=== PATIENT | male | born 1960 | race Caucasian/White ===

== ENCOUNTER → 2020-06-03 | Outpatient (CLI) | payer BC | LOC: CARD 13:00 | PROVIDERS: ATTEND Nurse Practitioner Family | DX: I51.7 Cardiomegaly (principal) | CPT/HCPCS: 93225; 93226; 93306 ==

== ENCOUNTER → 2020-06-29 | Outpatient (CLI) | payer BC ==
[~2020-06-29] VITALS: Ht 187 cm; Wt 126.0 kg
[~2020-06-29] MED LIST: REGADENOSON 0.4 MG/5 ML SYR (LEXISCAN) IV ONE
[2020-06-29] MEDS: CATHETER FLUSH 10 ML SYR IV PRN ×2 (07:26→09:08)
[2020-06-29 09:06] VITALS: BP 138/76
--- NOTE | 2020-06-30 12:56 | STRESS TEST ---
DATE OF SERVICE: 06/29/2020 RESTING AND POST REGADENOSON TECHNETIUM-99M TETROFOSMIN SPECT CT IMAGING ORDERING PHYSICIAN: Dana Snell APRN PRIMARY PHYSICIAN: Vickie Victoria APRN CLINICAL DIAGNOSES: Abnormal electrocardiogram. Baseline images were carried out after injection of 10.23 mCi of technetium-99m Tetrofosmin. This was followed by 0.4 mg regadenoson and 29.6 mCi of technetium-99m Tetrofosmin for stress imaging. The electrocardiogram showed sinus rhythm at baseline. It did not change significantly with regadenoson infusion. Review of images at rest and following stress does not indicate any significant perfusion defects consistent with myocardial ischemia or infarction. Gated images show normal global left ventricular systolic function. Left ventricular end diastolic volume is 112 mL. TID is absent (1.03). Left ventricular ejection fraction is calculated to be 50%. CONCLUSIONS: 1. No evidence of significant myocardial ischemia or infarction on this study. 2. Well preserved global left ventricular systolic function with ejection fraction of 50%. 3. No regional wall motion abnormality. Job ID: [id number] DocumentID: [id number] Dictated Date: 06/30/2020 08:39:32 [place] Date: 06/30/2020 12:54:47 Dictated By: VANESA MOJICA MD, MA, FACP, FACC,
== END ==
LOC: CARD 07:45
PROVIDERS: ATTEND Nurse Practitioner Family
DX: R94.31 Abnormal electrocardiogram [ECG] [EKG] (principal)
CPT/HCPCS: 78452; 93017; A9502

== ENCOUNTER 2021-04-24 10:05 | Inpatient (IN) | payer BC ==
[~2021-04-24] VITALS: Ht 187.9 cm; Wt 131.5 kg
[2021-04-24] MEDS ORDERED: 1/2 NS IV SOLUTION 1,000 ML IV SCH (12:00)
--- NOTE | 2021-04-24 12:01 | History & Physical-Hospitalist ---
History of Present Illness HPI/Chief Complaint This is a 60-year-old white male who has a history of hypertension hyperlipidemia and type 2 diabetes. He had a recent Covid infection in March I believe the of this year. He was beginning to recover until the last 24 h when he is noticed increased fatigue and racing heart. He presented to the emergency room in [place] and was found to be in SVT with a rate of 240. Adenosine and Cardizem IV were not helpful. As such his he was cardioverted with 100 J. At the time of my interview here he is in sinus rhythm but has intermittent runs short runs of SVT and probable atrial fibrillation. He appears to be fatigued but denies having any chest pain. In addition there is a verbal report although I do not have access to the chest x-ray report but he does have a lung mass of some sort. Source: patient Exam Limitations: no limitations Date Seen 04/24/21 Time Seen by a Provider: 12:00 Attending Physician Kate Hunter MD [facility]CP [facility] Referring Physician Date of Admission Apr 24, 2021 at 11:30 Home Medications & Allergies Home Medications Reviewed patient Home Medication Reconciliation performed by pharmacy medication reconciliations orthotics prosthetics technician and/or nursing. Patients Allergies have been reviewed. Allergies Allergies Coded Allergies No Known Drug Allergies (Unverified06/29/20) Past Xavnaly-Zzfkoo-Syewcq Hx Patient Social History Marrital Status: Employed/Student: employed (Aircraft Captain) Smoking Status: Never a Smoker Substance use?: No Alcohol Use?: No Past Medical History Surgeries: Nose High Cholesterol, Hypertension Diabetes, Insulin dep Family Medical History No Pertinent Family Hx Review of Systems Constitutional: see HPI, weight loss (10 pounds with recent Covid infection) EENTM: no symptoms reported Respiratory: short of breath Cardiovascular: palpitations Gastrointestinal: no symptoms reported Genitourinary: no symptoms reported Musculoskeletal: no symptoms reported Skin: no symptoms reported Psychiatric/Neurological: No Symptoms Reported Physical Exam Physical Exam Vital Signs Vital Signs - First Documented 04/24/21 04/24/21 04/24/21 11:30 11:41 12:49 Temp 36.9 Pulse 103 Resp 16 B/P (MAP) 124/82 Pulse Ox 96 O2 Delivery Nasal Cannula O2 Flow Rate 2.00 FiO2 28 Capillary Refill : Height, Weight, BMI Height: '" Weight: lbs. oz. kg; 36.03 BMI Method: General Appearance: No Apparent Distress, Obese, Other (Plethoric) HEENT: Normal ENT Inspection Neck: Limited Range of Motion Respiratory: Chest Non Tender, Lungs Clear, Normal Breath Sounds, No Accessory Muscle Use, No Respiratory Distress Cardiovascular: Regular Rate, Rhythm, No Edema, No Gallop, No JVD, No Murmur Gastrointestinal: Normal Bowel Sounds, No Organomegaly, No Pulsatile Mass, Non Tender Extremity: Normal Capillary Refill, Non Tender, No Pedal Edema Neurologic/Psychiatric: Alert, Oriented x3, No Motor/Sensory Deficits, Other (Seems lethargic and slow to express himself) Skin: Normal Color, Warm/Dry Results Results/Procedures Labs Laboratory Tests 04/24/21 12:20 04/24/21 16:46 04/24/21 18:06 Patient resulted labs reviewed. Assessment/Plan Admission Diagnosis SVT-status post cardioversion Possible paroxysmal atrial fibrillation Diabetes on insulin [id number] secondary to recent noncompliance for the last month-now with DKA Recent Covid infection Hypertension Hyperlipidemia Possible lung mass vs consolidated pneumonia-s/p Covid -CT chest on my examination appears to be bilateral consolidations c/w pneumonia- so will begin iv antibiotics after blood and sputum cultures. Renal Insuficiency with proteinuria- Admission Status: Inpatient Order (span 2 midnights) Reason for Inpatient Admission: multiple comordities - transferring to ICU Copy Copies To 1: [facility]/KATE BATES MD Apr 24, 2021 12:01
[2021-04-24] MEDS ORDERED: inSUlin ASPART (NovoLOG) 1 UNIT/0.01 ML (CHARGE PER UNIT) ONE (12:17)
[2021-04-24 12:30] LABS: BASOPHILS % (AUTO) 0 % (0-10); EOSINOPHILS % (AUTO) 0 % (0-10); HEMATOCRIT 44 % (40-54); HEMOGLOBIN 14.2 g/dL (13.3-17.7); LYMPHOCYTES # (AUTO) 0.3 10^3/uL (1.0-4.0); LYMPHOCYTES % (AUTO) 3 % (12-44); MEAN CORPUSCULAR HEMOGLOBIN 28 pg (25-34); MEAN CORPUSCULAR HGB CONC 33 g/dL (32-36); MEAN CORPUSCULAR VOLUME 85 fL (80-99); MEAN PLATELET VOLUME 10.4 fL (9.0-12.2); MONOCYTES # (AUTO) 1.2 10^3/uL (0.0-1.0); MONOCYTES % (AUTO) 11 % (0-12); NEUTROPHILS # (AUTO) 9.4 10^3/uL (1.8-7.8); NEUTROPHILS % (AUTO) 84 % (42-75); PLATELET COUNT 180 10^3/uL (130-400); WHITE BLOOD COUNT 11.2 10^3/uL (4.3-11.0)
[2021-04-24 12:41] LABS: ALBUMIN 3.3 GM/DL (3.2-4.5); CHLORIDE 86 MMOL/L (98-107); POTASSIUM 4.7 MMOL/L (3.6-5.0)
--- NOTE | 2021-04-24 12:41 | Consultation-Cardiology ---
HPI-Cardiology Cardiology Consultation: Date of Consultation 04/24/2021 Date of Admission 04/24/2021 Attending Physician Kate Hunter MD Admitting Physician [facility]athy [facility] Consulting Physician BALTA CHRISTIE JR, MD HPI: Time Seen by a Provider: 12:38 Chief Complaint: Reason for consultation: Supraventricular tachycardia. I had the pleasure of seeing Dajuan on the cardiac stepdown unit at [facility] in [place], [place] this afternoon. He has no known history of coronary artery disease. From his description, couple of years ago someone noticed trenton ething on an electrocardiogram and he had been sent over to our hospital for cardiology evaluation. At that time he underwent an echocardiogram, stress test and Holter monitor. There were no significant abnormalities and the patient was not scheduled for any follow-up. He had COVID infection a few weeks ago. He was treated at home. He has had some intermittent fatigue and shortness of breath since then. Then a few days ago he developed nausea, vomiting and diarrhea. He saw his primary care provider and was diagnosed with viral gastroenteritis and given some medication for nausea. His nausea and vomiting improved. However, then he developed profound fatigue but at the same time also had insomnia. He felt like he needed to sleep but could not fall asleep. This was causing him to become more fatigued and weak. Then early this morning the patient developed palpitations with the sensation of a rapid heartbeat. He checked his pulse with a pulse oximeter and got a reading in the 200 range. He then went to his local emergency room. He was found to be in supraventricular tachycardia. He was treated with 2 doses of adenosine which broke the arrhythmia and then he was in sinus tachycardia around 120 bpm. At that time, I was called about arranging for transfer to our facility. He still does have some palpitations but these are improved. When he had the very fast heartbeats this morning, he was lightheaded but denies syncope. He denies chest discomfort. His shortness of breath may have been slightly worse when he had the rapid heartbeats this morning. He denies paroxysmal nocturnal dyspnea, orthopnea, or lower extremity edema. He did have a cough around the time of his Covid infection but this seems to have resolved. Because of the tachycardia, a cardiology consultation was requested. Certain portions of this document may have been dictated utilizing voice recognition technology. Inherent to this technology, typographical and grammatical errors may exist. As much as I am diligent to identify and correct these mistakes, some errors may remain in the document. Review of Systems-Cardiology Review of Systems Other comments Review of 10 organ systems is as per the history of present illness, otherwise negative. LRK-Xveilk-Yeonef Hx Patient Social History Marrital Status: Employed/Student: employed (Solar Panel Technician) Smoking Status: Never a Smoker Have you traveled recently?: Yes Where was recent travel?: [place] Alcohol Use?: No Pt feels they are or have been: No Past Medical History PMH As described under Assessment. Family Medical History Family Medical History: The patient did not report a family history of premature coronary artery disease in first-degree relatives. Allergies and Home Medications Allergies Coded Allergies: No Known Drug Allergies (Unverified , 06/29/20) Patient Home Medication List Home Medication List Reviewed: Yes Exam Vital Signs Vital Signs Date Time Temp Pulse Resp B/P (MAP) Pulse Ox O2 Delivery O2 Flow Rate FiO2 04/24/21 15:00 37.2 04/24/21 13:00 106 04/24/21 12:49 96 28 04/24/21 12:49 Nasal Cannula 2.00 04/24/21 12:45 17 114/36 Physical Exam General: Alert. No acute distress. Well nourished and appears stated age. He is obese. Eye: Extraocular movements are intact. Conjunctivae are clear. There are no xanthelasma. HENT: Normocephalic. Atraumatic. Carotid pulsations 2/2 without bruits. Neck: Jugular venous pressure does not appear elevated. No thyromegaly appreciated. Respiratory: Lungs are clear to auscultation. Respirations are non-labored. Breath sounds are equal. Symmetrical chest wall expansion. Cardiovascular: Tachycardia. Regular rhythm. No murmur. No gallop. Point of maximal impulse is not appear displaced. Good pulses equal in all extremities. No edema. Gastrointestinal: Soft. Normal bowel sounds. Skin: Skin turgor is normal. There is no pallor. Musculoskeletal: No kyphosis or scoliosis appreciated. Neurologic: Alert and oriented to person, place, time. Cranial nerves 3-12 appear grossly intact. The patient has good motor tone strength in the upper and lower extremities bilaterally. Psychiatric: Cooperative. Appropriate mood & affect. Labs Laboratory Tests Test 2/13/22 12:10 04/24/21 12:20 04/24/21 14:30 04/24/21 14:34 Range/Units Glucometer 303 H 70-110 MG/DL White Blood Count 11.2 H 4.3-11.0 10^3/uL Red Blood Count 5.10 4.30-5.52 10^6/uL Hemoglobin 14.2 13.3-17.7 g/dL Hematocrit 44 40-54 % Mean Corpuscular Volume 85 80-99 fL Mean Corpuscular Hemoglobin 28 25-34 pg Mean Corpuscular Hemoglobin Concent 33 32-36 g/dL Red Cell Distribution Width 14.5 10.0-14.5 % Platelet Count 180 130-400 10^3/uL Mean Platelet Volume 10.4 9.0-12.2 fL Immature Granulocyte % (Auto) 1 % Neutrophils (%) (Auto) 84 H 42-75 % Lymphocytes (%) (Auto) 3 L 12-44 % Monocytes (%) (Auto) 11 0-12 % Eosinophils (%) (Auto) 0 0-10 % Basophils (%) (Auto) 0 0-10 % Neutrophils # (Auto) 9.4 H 1.8-7.8 10^3/uL Lymphocytes # (Auto) 0.3 L 1.0-4.0 10^3/uL Monocytes # (Auto) 1.2 H 0.0-1.0 10^3/uL Eosinophils # (Auto) 0.0 0.0-0.3 10^3/uL Basophils # (Auto) 0.0 0.0-0.1 10^3/uL Immature Granulocyte # (Auto) 0.1 0.0-0.1 10^3/uL Neutrophils % (Manual) 79 % Lymphocytes % (Manual) 4 % Monocytes % (Manual) 10 % Band Neutrophils 7 % [place] Cells SLIGHT Sodium Level 125 *L 135-145 MMOL/L Potassium Level 4.7 3.6-5.0 MMOL/L Chloride Level 86 L 98-107 MMOL/L Carbon Dioxide Level 10 L 21-32 MMOL/L Anion Gap 29 H 5-14 MMOL/L Blood Urea Nitrogen 44 H 7-18 MG/DL Creatinine 2.01 H 0.60-1.30 MG/DL Estimat Glomerular Filtration Rate 38 BUN/Creatinine Ratio 22 Glucose Level 339 H 70-105 MG/DL Calcium Level 9.4 8.5-10.1 MG/DL Corrected Calcium 10.0 8.5-10.1 MG/DL Total Bilirubin 0.3 0.1-1.0 MG/DL Aspartate Amino Transf (AST/SGOT) 36 H 5-34 U/L Alanine Aminotransferase (ALT/SGPT) 24 0-55 U/L Alkaline Phosphatase 105 40-136 U/L Troponin I < 0.028 < 0.028 <0.028 NG/ML C-Reactive Protein High Sensitivity 48.62 H 0.00-0.50 MG/DL Total Protein 7.4 6.4-8.2 GM/DL Albumin 3.3 3.2-4.5 GM/DL Beta-Hydroxybutyrate (Chem panel) 10.07 H 0.00-0.27 MMOL/L Thyroid Stimulating Hormone (TSH) 1.16 0.35-4.94 UIU/ML Blood Gas Puncture Site RIGHT RADIAL Blood Gas Patient Temperature 37.1 Arterial Blood pH 7.35 L 7.37-7.43 Arterial Blood Partial Pressure CO2 29 L 35-45 MMHG Arterial Blood Partial Pressure O2 58 L 79-93 MMHG Arterial Blood HCO3 16 *L 23-27 MMOL/L Arterial Blood Total CO2 16.7 L 21.0-31.0 MMOL/L Arterial Blood Oxygen Saturation 91 L 94-100 % Arterial Blood Base Excess -8.6 L -2.5-2.5 MMOL/L Stanley Test YES-POS Blood Gas Ventilator Setting NO Blood Gas Inspired Oxygen 2 ECG Impression ECG Comment Sinus tachycardia at a heart rate of 104 bpm with left atrial abnormality. Diagnosis/Problems Diagnosis/Problems (1) Supraventricular tachycardia Assessment & Plan: He seems to be having a combination supraventricular tachycardia of unclear mechanism in addition to paroxysmal atrial fibrillation. I have started him on beta-vishal but within 1 hour, he developed recurrent tachycardia and I have started him on intravenous diltiazem infusion. I will plan on an echocardiogram tomorrow. (2) Paroxysmal atrial fibrillation Assessment & Plan: In addition to supraventricular tachycardia, he also seems to be having some paroxysmal atrial fibrillation. As above, I have started him on intravenous diltiazem infusion. If he remains in atrial fibrillation in the morning, then I will consider initiating oral anticoagulation at that time. As long as oral anticoagulation is initiated within 48 hours of the start of the atrial fibrillation, this would be soon enough to prevent atrial thrombus. (3) Primary hypertension Assessment & Plan: He was taking lisinopril at home. He does not know the dose. He was not even sure why he was taking lisinopril. We will be initiating treatment for the supraventricular arrhythmias with beta-vishal and diltiazem as above. (4) Acute kidney injury Assessment & Plan: His current GFR is consistent with stage III chronic kidney disease. I do not have any old results for comparison. This will need to be followed closely. The primary attending has ordered intravenous fluids. (5) Type 2 diabetes mellitus with complication Assessment & Plan: This will be managed by the hospitalist. (6) Mass of upper lobe of right lung Assessment & Plan: Exact etiology unclear. CT of the chest is pending. (7) Hyponatremia Assessment & Plan: Exact etiology unclear. This is concerning for SIADH in light of the right upper lobe mass. (8) Obesity Assessment & Plan: He needs to work on weight loss. (9) Personal history of COVID-19 Assessment & Plan: Unclear whether or not this could have anything to do with his current clinical status. Problem Qualifiers (1) Obesity: Body mass index: BMI 35.0-35.9 BALTA CRHISTIE JR, MD Apr 24, 2021 12:41
[2021-04-24 12:42] LABS: CALCIUM 9.4 MG/DL (8.5-10.1)
--- NOTE | 2021-04-24 12:42 | Diagnostic Imaging Report ---
CLINICAL INDICATION: Patient with cough and shortness of air post COVID. EXAM: Portable chest x-ray, upright view. COMPARISON: None. FINDINGS: Lungs/pleura: There is a moderate-sized area of consolidation involving the right upper lobe and right mid lung field. There is subtle amorphous airspace infiltrate involving the left mid lung field and left perihilar region. There is no pneumothorax. There is no pleural effusion. Mediastinum: Mild pulmonary vascular prominence centrally. Pulmonary vasculature: Unremarkable. Heart: There is cardiomegaly. Bones/extrathoracic soft tissue: There are degenerative spurs involving the spine. IMPRESSION: 1: There is consolidation in the right upper lobe and right mid lung field and amorphous infiltrate involving the left perihilar region concerning for lung infiltrates. 2: There is mild cardiomegaly with mild pulmonary vascular prominence centrally. Dictated by: Dictated on workstation # [id number]
[2021-04-24 12:43] LABS: GLUCOSE 339 MG/DL (70-105); TOTAL PROTEIN 7.4 GM/DL (6.4-8.2)
[2021-04-24 12:45] LABS: BILIRUBIN,TOTAL 0.3 MG/DL (0.1-1.0); CARBON DIOXIDE 10 MMOL/L (21-32)
[2021-04-24 12:46] LABS: SODIUM 125 MMOL/L (135-145)
[2021-04-24 12:47] LABS: ALKALINE PHOSPHATASE 105 U/L (40-136); CREATININE SERUM 2.01 MG/DL (0.60-1.30); GFR ESTIMATED 38
[2021-04-24 12:48] LABS: BUN/CREATININE RATIO 22
[2021-04-24 12:49] VITALS: BP 124/82
[2021-04-24 12:50] LABS: ALANINE AMINOTRANSFERASE 24 U/L (0-55)
[2021-04-24] MEDS ORDERED: meTOproloL SUCCINATE 50 MG (TOPROL XL) TAB PO NR (13:00)
[2021-04-24 13:09] LABS: BAND NEUTROPHILS 7 %; BURR CELLS SLIGHT; LYMPHOCYTES % (MANUAL) 4 %; MONOCYTES % (MANUAL) 10 %; NEUTROPHILS % (MANUAL) 79 %
[2021-04-24] MEDS ORDERED: dilTIAZem DRIP PRE-MIX 125 ML IV ONE (14:20)
[2021-04-24] MEDS: NS IV 1000 ML 1,000 ML IV SCH ×3 (14:36→22:23)
[2021-04-24] MEDS: dilTIAZem DRIP PRE-MIX 125 ML IV SCH (14:36)
[2021-04-24 14:47] LABS: ABG BASE EXCESS -8.6 MMOL/L (-2.5-2.5); ABG OXYGEN SATURATION 91 % (94-100); ABG PCO2 29 MMHG (35-45); ABG PH 7.35 (7.37-7.43); ABG PO2 58 MMHG (79-93); ABG TCO2 16.7 MMOL/L (21.0-31.0)
[2021-04-24 14:50] LABS: ALLENS TEST YES-POS; INSPIRED O2 2; PATIENT TEMP 37.1; VENTILATOR NO
[2021-04-24] MEDS ORDERED: RT-ALBUTEROL SULF 2.5 MG/3 ML PRE-MIX VIAL INH PRN (15:00)
[2021-04-24] MEDS ORDERED: inSUlin ASPART (NovoLOG) 1 UNIT/0.01 ML (CHARGE PER UNIT) SC SCH ×2 (15:00→18:00)
[2021-04-24] MEDS ORDERED: ENOXAPARIN 40 MG/0.4 ML (LOVENOX) SYR SC SCH (15:15)
[2021-04-24] MEDS: PIPERACILLIN SODIUM/TAZOBACTAM 4.5 GM in NS (IVPB) 100 ML IV NR ×2 (15:40→15:45)
[2021-04-24 15:43] LABS: CLARITY,URINE CLEAR; COLOR,URINE YELLOW; GLUCOSE, URINE (UA) 3+ (NEGATIVE); KETONES,URINE 3+ (NEGATIVE); LEUKOCYTE ESTERASE ,URINE NEGATIVE (NEGATIVE); NITRITE,URINE NEGATIVE (NEGATIVE); PH,URINE 5.5 (5-9); PROTEIN,URINE 2+ (NEGATIVE)
[2021-04-24] MEDS ORDERED: ONDANSETRON 4 MG/2 ML (SDV) Z0FRAN IVP PRN (15:45)
[2021-04-24] MEDS ORDERED: NS IV 1000 ML 1,000 ML IV SCH (15:45)
[2021-04-24 15:54] LABS: BACTERIA,URINE TRACE /HPF; BILIRUBIN,URINE 2+ (NEGATIVE); HYALINE CASTS, URINE 0-2 /LPF
[2021-04-24] MEDS ORDERED: PIPERACILLIN SODIUM/TAZOBACTAM 4.5 GM in NS (IVPB) 100 ML IV NR (16:00)
[2021-04-24] MEDS: POTASSIUM CL 10MEQ/50ML IVPB 50 ML IV SCH ×6 (16:08→23:56)
--- NOTE | 2021-04-24 16:15 | Tele-ICU Consult ---
Progress Note 60 y/o male with a hx of HTN, DM and recent covid PNA Presents with palpitations and weakness Noted to be in A fib/RVR Cardiology consulted for cardioversion. Started on cardizem drip Blood sugar 339 with elevated hydroxbutyrate and HCO3 of 16 suggesting DKA also has ELMA with creatinine of 2 PLAN: cardiology on consult for a fib/rvr, cardizem drip started Insulin drip for DKA Hydration for ELMA Focused Exam Height, Weight, BMI Height: '" Weight: lbs. oz. kg; 35.26 BMI Method: Labs Laboratory Tests 04/24/21 12:20 Labs Labs Laboratory Tests 04/24/21 12:10: Glucometer 303H 04/24/21 12:20: White Blood Count 11.2H, Red Blood Count 5.10, Hemoglobin 14.2, Hematocrit 44, Mean Corpuscular Volume 85, Mean Corpuscular Hemoglobin 28, Mean Corpuscular Hemoglobin Concent 33, Red Cell Distribution Width 14.5, Platelet Count 180, Mean Platelet Volume 10.4, Immature Granulocyte % (Auto) 1, Neutrophils (%) (Auto) 84H, Lymphocytes (%) (Auto) 3L, Monocytes (%) (Auto) 11, Eosinophils (%) (Auto) 0, Basophils (%) (Auto) 0, Neutrophils # (Auto) 9.4H, Lymphocytes # (Auto) 0.3L, Monocytes # (Auto) 1.2H, Eosinophils # (Auto) 0.0, Basophils # (Auto) 0.0, Immature Granulocyte # (Auto) 0.1, Neutrophils % (Manual) 79, Lymphocytes % (Manual) 4, Monocytes % (Manual) 10, Band Neutrophils 7, [place] Cells SLIGHT, Sodium Level 125*L, Potassium Level 4.7, Chloride Level 86L, Carbon Dioxide Level 10L, Anion Gap 29H, Blood Urea Nitrogen 44H, Creatinine 2.01H, Estimat Glomerular Filtration Rate 38, BUN/Creatinine Ratio 22, Glucose Level 339H, Calcium Level 9.4, Corrected Calcium 10.0, Total Bilirubin 0.3, Aspartate Amino Transf (AST/SGOT) 36H, Alanine Aminotransferase (ALT/SGPT) 24, Alkaline Phosphatase 105, Troponin I < 0.028, C-Reactive Protein High Sensitivity 48.62H, Total Protein 7.4, Albumin 3.3, Beta-Hydroxybutyrate (Chem panel) 10.07H, Thyroid Stimulating Hormone (TSH) 1.16 04/24/21 14:30: Blood Gas Puncture Site RIGHT RADIAL, Blood Gas Patient Temperature 37.1, Arterial Blood pH 7.35L, Arterial Blood Partial Pressure CO2 29L, Arterial Blood Partial Pressure O2 58L, Arterial Blood HCO3 16*L, Arterial Blood Total CO2 16.7L, Arterial Blood Oxygen Saturation 91L, Arterial Blood Base Excess -8.6L, Stanley Test YES-POS, Blood Gas Ventilator Setting NO, Blood Gas Inspired Oxygen 2 04/24/21 14:34: Troponin I < 0.028 04/24/21 15:27: Urine Color YELLOW, Urine Clarity CLEAR, Urine pH 5.5, Urine Specific [place] 1.025H, Urine Protein 2+H, Urine Glucose (UA) 3+H, Urine Ketones 3+H, Urine Nitrite NEGATIVE, Urine Bilirubin 2+H, Urine Urobilinogen 0.2, Urine Leukocyte Esterase NEGATIVE, Urine RBC (Auto) TRACE-IH, Urine RBC NONE, Urine WBC 5-10H, Urine Squamous Epithelial Cells NONE, Urine Crystals NONE, Urine Bacteria TRACE, Urine Casts PRESENT, Urine Hyaline Casts 0-2H, Urine Mucus NEGATIVE, Urine Culture Indicated YES 04/24/21 16:07: Glucometer 351H BENNY CARLSON MD Apr 24, 2021 16:15
[2021-04-24] MEDS: 1/2 NS IV SOLUTION 1,000 ML IV SCH ×2 (16:39→20:59)
[2021-04-24] MEDS: D5 1/2 NS 1000 ML IV SOLUTION 1,000 ML IV SCH (16:41)
[2021-04-24] MEDS: inSUlin REGULAR HUMAN VIAL 250 UNITS in NORMAL SALINE 250 ML IV SCH (16:51)
[2021-04-24] MEDS ORDERED: AMIODARONE FOR BOLUS 150 MG in NS (IVPB) 100 ML IV NR (17:00)
[2021-04-24 17:18] LABS: CALCIUM 8.7 MG/DL (8.5-10.1)
[2021-04-24 17:23] LABS: CREATININE SERUM 1.85 MG/DL (0.60-1.30)
[2021-04-24] MEDS: AMIODARONE INJECTION 450 MG in D5W IV SOLUTION (EXCEL) 250 ML IV SCH (17:37)
--- NOTE | 2021-04-24 17:45 | Diagnostic Imaging Report ---
CLINICAL INDICATIONS: Follow-up chest x-ray to look for infiltrate versus mass. EXAM: Axial CT scan of the chest performed without IV contrast. Sagittal and coronal reformatted images were created. COMPARISON: Chest x-ray dated 04/24/2021. FINDINGS: Again noted moderate amount of dense consolidation involving right upper lobe and right perihilar region. There is also significant lung consolidation involving the left lower lobe posteriorly. There is mild patchy consolidation and groundglass opacification involving the more midportion of the left lower lobe. There are some air bronchograms seen in these areas of consolidation. There is no pleural effusion. There are multiple prominent lymph nodes in the mediastinum. There is no axillary lymphadenopathy. There is no other significant mediastinal abnormality. Visualized upper lung tan show no significant abnormality. There are degenerative spurs involving the thoracic spine. IMPRESSION: 1: There are areas of dense consolidation with air bronchograms involving the right upper lobe and left lower lobe region. These findings may be related to bronchopneumonia. Follow-up chest CT scan in one month is suggested to evaluate for resolution of these findings. 2: There is mediastinal lymphadenopathy. Dictated by: Dictated on workstation # [id number]
[2021-04-24 18:24] LABS: POTASSIUM 4.2 MMOL/L (3.6-5.0)
[2021-04-24 18:25] LABS: CALCIUM 8.7 MG/DL (8.5-10.1)
[2021-04-24 18:30] LABS: CREATININE SERUM 1.81 MG/DL (0.60-1.30)
[2021-04-24] MEDS ORDERED: ACETAMINOPHEN 325 MG TABLET PO PRN (19:15)
[2021-04-24] MEDS ORDERED: MELATONIN 3 MG TABLET PO PRN (19:15)
[2021-04-24] MEDS ORDERED: ACETAMINOPHEN 325 MG TABLET ONE (20:12)
[2021-04-24] MEDS: RT-ALBUTEROL SULF 2.5 MG/3 ML PRE-MIX VIAL INH SCH (20:51)
[2021-04-24] MEDS: PIPERACILLIN SODIUM/TAZOBACTAM 4.5 GM in NS (IVPB) 100 ML IV SCH (22:23)
[2021-04-25] MEDS: 1/2 NS IV SOLUTION 1,000 ML IV SCH ×6 (00:03→18:35)
[2021-04-25] MEDS: dilTIAZem DRIP PRE-MIX 125 ML IV SCH (00:12)
[2021-04-25 00:27] LABS: POTASSIUM 3.8 MMOL/L (3.6-5.0)
[2021-04-25 00:28] LABS: CALCIUM 8.3 MG/DL (8.5-10.1)
[2021-04-25 00:32] LABS: CREATININE SERUM 1.79 MG/DL (0.60-1.30)
[2021-04-25] MEDS: AMIODARONE INJECTION 450 MG in D5W IV SOLUTION (EXCEL) 250 ML IV SCH (01:55)
[2021-04-25] MEDS: NS IV 1000 ML 1,000 ML IV SCH ×5 (02:43→18:34)
[2021-04-25] MEDS: POTASSIUM CL 10MEQ/50ML IVPB 50 ML IV SCH ×6 (04:12→18:34)
[2021-04-25] MEDS: D5 1/2 NS 1000 ML IV SOLUTION 1,000 ML IV SCH ×4 (04:12→18:34)
[2021-04-25 04:32] LABS: BASOPHILS # (AUTO) 0.1 10^3/uL (0.0-0.1); BASOPHILS % (AUTO) 1 % (0-10); EOSINOPHILS % (AUTO) 0 % (0-10); HEMATOCRIT 35 % (40-54); HEMOGLOBIN 11.8 g/dL (13.3-17.7); LYMPHOCYTES # (AUTO) 0.5 10^3/uL (1.0-4.0); LYMPHOCYTES % (AUTO) 5 % (12-44); MEAN CORPUSCULAR HEMOGLOBIN 27 pg (25-34); MEAN CORPUSCULAR HGB CONC 34 g/dL (32-36); MEAN CORPUSCULAR VOLUME 81 fL (80-99); MEAN PLATELET VOLUME 10.5 fL (9.0-12.2); MONOCYTES # (AUTO) 1.4 10^3/uL (0.0-1.0); MONOCYTES % (AUTO) 13 % (0-12); NEUTROPHILS # (AUTO) 8.6 10^3/uL (1.8-7.8); NEUTROPHILS % (AUTO) 78 % (42-75); PLATELET COUNT 191 10^3/uL (130-400)
[2021-04-25 04:46] LABS: CHLORIDE 99 MMOL/L (98-107); POTASSIUM 3.8 MMOL/L (3.6-5.0); SODIUM 128 MMOL/L (135-145)
[2021-04-25 04:47] LABS: ALBUMIN 2.8 GM/DL (3.2-4.5)
[2021-04-25 04:48] LABS: INR 1.1 (0.8-1.4); PROTHROMBIN TIME PATIENT 14.2 SEC (12.2-14.7); TRIGLYCERIDES 109 MG/DL (<150); VLDL CHOLESTEROL 22 MG/DL (5-40)
[2021-04-25 04:49] LABS: GLUCOSE 189 MG/DL (70-105); TOTAL PROTEIN 5.5 GM/DL (6.4-8.2)
[2021-04-25 04:50] LABS: CARBON DIOXIDE 17 MMOL/L (21-32)
[2021-04-25 04:51] LABS: BILIRUBIN,TOTAL 0.4 MG/DL (0.1-1.0)
[2021-04-25 04:52] LABS: PHOSPHORUS 2.3 MG/DL (2.3-4.7)
[2021-04-25 04:53] LABS: ALKALINE PHOSPHATASE 137 U/L (40-136); CREATININE SERUM 1.66 MG/DL (0.60-1.30); GFR ESTIMATED 47
[2021-04-25 04:54] LABS: BUN/CREATININE RATIO 23; CHOLESTEROL 98 MG/DL (< 200)
[2021-04-25 04:55] LABS: HDL CHOLESTEROL 19 MG/DL (40-60)
[2021-04-25 04:56] LABS: ALANINE AMINOTRANSFERASE 49 U/L (0-55); MAGNESIUM 1.9 MG/DL (1.6-2.4)
[2021-04-25] MEDS: KCL 20 MEQ TAB (K-DUR) PO SCH (05:43)
[2021-04-25] MEDS: MAGNESIUM 1 GM/100 ML IVPB 100 ML IV SCH (05:43)
[2021-04-25] MEDS: PIPERACILLIN SODIUM/TAZOBACTAM 4.5 GM in NS (IVPB) 100 ML IV SCH ×3 (06:04→21:11)
[2021-04-25 08:14] LABS: POTASSIUM 3.5 MMOL/L (3.6-5.0)
[2021-04-25 08:15] LABS: CALCIUM 7.9 MG/DL (8.5-10.1)
[2021-04-25] MEDS: meTOproloL SUCCINATE 50 MG (TOPROL XL) TAB PO SCH (08:16)
[2021-04-25] MEDS: ASPIRIN E.C. 81 MG (ECOTRIN) TAB PO SCH (08:16)
[2021-04-25 08:20] LABS: CREATININE SERUM 1.53 MG/DL (0.60-1.30)
[2021-04-25] MEDS: RT-ALBUTEROL SULF 2.5 MG/3 ML PRE-MIX VIAL INH SCH ×2 (09:08→21:00)
--- NOTE | 2021-04-25 09:29 | Cardiology Progress Note ---
Progress Note-Cardiology Events since last exam Date Seen by Provider: Apr 25, 2021 Time Seen by Provider: 09:28 Events since last exam I am following him due to supraventricular tachycardia and paroxysmal atrial fibrillation. Late yesterday afternoon after I had seen the patient, he developed recurrent atrial fibrillation and was transferred to the intensive care unit. I started him on intravenous diltiazem. He also received an oral dose of metoprolol succinate. He was still having significant tachycardia so I started him on amiodarone infusion. Overnight, he converted to sinus rhythm. This morning his palpitations have improved, if not resolved. He still feels somewhat short of breath. He denies chest discomfort, syncope, or ankle edema. Certain portions of this document may have been dictated utilizing voice recognition technology. Inherent to this technology, typographical and grammati romeo errors may exist. As much as I am diligent to identify and correct these mistakes, some errors may remain in the document. Vitals Last set of Vitals Signs Vital Signs 04/24/21 04/25/21 12:49 14:00 Pulse 86 Resp 17 B/P (MAP) 126/60 Pulse Ox 95 O2 Delivery Nasal Cannula O2 Flow Rate 2.00 FiO2 28 Labs Labs Laboratory Tests 04/24/21 16:46 04/24/21 18:06 04/25/21 00:04 04/25/21 04:20 04/25/21 07:50 04/25/21 12:00 Exam Vital Signs Vital Signs Date Time Temp Pulse Resp B/P (MAP) Pulse Ox O2 Delivery O2 Flow Rate FiO2 04/25/21 14:00 86 17 126/60 95 Nasal Cannula 2.00 04/25/21 08:00 36.9 04/24/21 12:49 28 Physical Exam General: Alert. No acute distress. He is obese. Eye: No xanthelasma. HENT: Normocephalic. Neck: Jugular venous pressure does not appear elevated. Respiratory: Lungs are clear to auscultation. Respirations are non-labored. Breath sounds are equal. Symmetrical chest wall expansion. Cardiovascular: Normal rate. Regular rhythm. No murmur. No gallop. No edema. Gastrointestinal: Soft. Normal bowel sounds. Skin: Warm. Dry. Neurologic: Alert and oriented to person, place, time. Cranial nerves 3-11 grossly intact. Psychiatric: Cooperative. Appropriate mood & affect. Labs Laboratory Tests Test 04/24/21 16:46 04/24/21 17:05 04/24/21 18:04 04/24/21 18:06 Range/Units Sodium Level 126 L 127 L 135-145 MMOL/L Potassium Level 4.0 4.2 3.6-5.0 MMOL/L Chloride Level 89 L 90 L 98-107 MMOL/L Carbon Dioxide Level 11 L 13 L 21-32 MMOL/L Anion Gap 26 H 24 H 5-14 MMOL/L Blood Urea Nitrogen 45 H 44 H 7-18 MG/DL Creatinine 1.85 H 1.81 H 0.60-1.30 MG/DL Estimat Glomerular Filtration Rate 42 43 BUN/Creatinine Ratio 24 24 Glucose Level 341 H 332 H 70-105 MG/DL Calcium Level 8.7 8.7 8.5-10.1 MG/DL Glucometer 326 H 329 H 70-110 MG/DL Beta-Hydroxybutyrate (Chem panel) 7.71 H 0.00-0.27 MMOL/L Test 04/24/21 18:47 04/24/21 20:03 04/24/21 21:02 04/24/21 22:10 Range/Units Glucometer 315 H 298 H 265 H 70-110 MG/DL Troponin I < 0.028 <0.028 NG/ML Test 04/24/21 22:12 04/24/21 23:08 04/25/21 00:03 04/25/21 00:04 Range/Units Glucometer 275 H 253 H 230 H 70-110 MG/DL Sodium Level 127 L 135-145 MMOL/L Potassium Level 3.8 3.6-5.0 MMOL/L Chloride Level 95 L 98-107 MMOL/L Carbon Dioxide Level 16 L 21-32 MMOL/L Anion Gap 16 H 5-14 MMOL/L Blood Urea Nitrogen 42 H 7-18 MG/DL Creatinine 1.79 H 0.60-1.30 MG/DL Estimat Glomerular Filtration Rate 43 BUN/Creatinine Ratio 23 Glucose Level 238 H 70-105 MG/DL Calcium Level 8.3 L 8.5-10.1 MG/DL Test 04/25/21 00:57 04/25/21 01:52 04/25/21 03:00 04/25/21 04:04 Range/Units Glucometer 230 H 241 H 226 H 168 H 70-110 MG/DL Test 04/25/21 04:20 04/25/21 04:33 04/25/21 04:57 04/25/21 06:02 Range/Units White Blood Count 11.0 4.3-11.0 10^3/uL Red Blood Count 4.32 4.30-5.52 10^6/uL Hemoglobin 11.8 L 13.3-17.7 g/dL Hematocrit 35 L 40-54 % Mean Corpuscular Volume 81 80-99 fL Mean Corpuscular Hemoglobin 27 25-34 pg Mean Corpuscular Hemoglobin Concent 34 32-36 g/dL Red Cell Distribution Width 14.1 10.0-14.5 % Platelet Count 191 130-400 10^3/uL Mean Platelet Volume 10.5 9.0-12.2 fL Immature Granulocyte % (Auto) 3 % Neutrophils (%) (Auto) 78 H 42-75 % Lymphocytes (%) (Auto) 5 L 12-44 % Monocytes (%) (Auto) 13 H 0-12 % Eosinophils (%) (Auto) 0 0-10 % Basophils (%) (Auto) 1 0-10 % Neutrophils # (Auto) 8.6 H 1.8-7.8 10^3/uL Lymphocytes # (Auto) 0.5 L 1.0-4.0 10^3/uL Monocytes # (Auto) 1.4 H 0.0-1.0 10^3/uL Eosinophils # (Auto) 0.0 0.0-0.3 10^3/uL Basophils # (Auto) 0.1 0.0-0.1 10^3/uL Immature Granulocyte # (Auto) 0.3 H 0.0-0.1 10^3/uL Prothrombin Time 14.2 12.2-14.7 SEC INR Comment 1.1 0.8-1.4 Sodium Level 128 L 135-145 MMOL/L Potassium Level 3.8 3.6-5.0 MMOL/L Chloride Level 99 98-107 MMOL/L Carbon Dioxide Level 17 L 21-32 MMOL/L Anion Gap 12 5-14 MMOL/L Blood Urea Nitrogen 39 H 7-18 MG/DL Creatinine 1.66 H 0.60-1.30 MG/DL Estimat Glomerular Filtration Rate 47 BUN/Creatinine Ratio 23 Glucose Level 189 H 70-105 MG/DL Calcium Level 8.0 L 8.5-10.1 MG/DL Corrected Calcium 9.0 8.5-10.1 MG/DL Phosphorus Level 2.3 2.3-4.7 MG/DL Magnesium Level 1.9 1.6-2.4 MG/DL Total Bilirubin 0.4 0.1-1.0 MG/DL Aspartate Amino Transf (AST/SGOT) 71 H 5-34 U/L Alanine Aminotransferase (ALT/SGPT) 49 0-55 U/L Alkaline Phosphatase 137 H 40-136 U/L Troponin I < 0.028 <0.028 NG/ML Total Protein 5.5 L 6.4-8.2 GM/DL Albumin 2.8 L 3.2-4.5 GM/DL Triglycerides Level 109 <150 MG/DL Cholesterol Level 98 < 200 MG/DL LDL Cholesterol Direct 53 1-129 MG/DL VLDL Cholesterol 22 5-40 MG/DL HDL Cholesterol 19 L 40-60 MG/DL Beta-Hydroxybutyrate (Chem panel) 0.98 H 0.00-0.27 MMOL/L Glucometer 191 H 181 H 188 H 70-110 MG/DL Test 04/25/21 06:46 04/25/21 07:50 04/25/21 08:14 04/25/21 09:28 Range/Units Glucometer 205 H 177 H 166 H 70-110 MG/DL Sodium Level 127 L 135-145 MMOL/L Potassium Level 3.5 L 3.6-5.0 MMOL/L Chloride Level 101 98-107 MMOL/L Carbon Dioxide Level 16 L 21-32 MMOL/L Anion Gap 10 5-14 MMOL/L Blood Urea Nitrogen 35 H 7-18 MG/DL Creatinine 1.53 H 0.60-1.30 MG/DL Estimat Glomerular Filtration Rate 52 BUN/Creatinine Ratio 23 Glucose Level 189 H 70-105 MG/DL Calcium Level 7.9 L 8.5-10.1 MG/DL Test 04/25/21 10:20 04/25/21 11:25 04/25/21 12:00 04/25/21 12:58 Range/Units Glucometer 173 H 150 H 196 H 70-110 MG/DL Sodium Level 127 L 135-145 MMOL/L Potassium Level 3.6 3.6-5.0 MMOL/L Chloride Level 102 98-107 MMOL/L Carbon Dioxide Level 16 L 21-32 MMOL/L Anion Gap 9 5-14 MMOL/L Blood Urea Nitrogen 32 H 7-18 MG/DL Creatinine 1.45 H 0.60-1.30 MG/DL Estimat Glomerular Filtration Rate 56 BUN/Creatinine Ratio 22 Glucose Level 200 H 70-105 MG/DL Calcium Level 7.8 L 8.5-10.1 MG/DL Test 04/25/21 14:32 Range/Units Glucometer 178 H 70-110 MG/DL Radiology ECHOCARDIOGRAM (04/25/2021): 1. This is a technically difficult study due to poor image quality secondary to the patient's body habitus. 2. Left ventricle: The cavity size is normal. There is mild concentric hypertrophy. Systolic function is moderately reduced. The estimated ejection fraction is 35-40%. There is global hypokinesis. Doppler parameters are consistent with abnormal left ventricular relaxation (grade 1 diastolic dysfunction). 3. Right ventricle: The cavity size is normal. Systolic function is mildly reduced. TAPSE 1.4 cm. 4. Inferior vena cava: The vessel is dilated. The respirophasic diameter changes are blunted (less than 50%). These findings are consistent with markedly elevated right atrial pressure (15 mmHg). 5. Pulmonary arteries: The pulmonary artery pressure cannot be estimated on this study due to inadequate tricuspid regurgitant envelope. Diagnosis/Problems Diagnosis/Problems (1) Supraventricular tachycardia Assessment & Plan: He seems to be having a combination supraventricular tachycardia of unclear mechanism in addition to paroxysmal atrial fibrillation. I recommend he continue oral beta-vishal. I have discontinued the diltiazem infusion. (2) Paroxysmal atrial fibrillation Status: Acute Assessment & Plan: In addition to supraventricular tachycardia, he also seems to be having some paroxysmal atrial fibrillation. As above, last evening I started him on intravenous amiodarone and he converted to sinus rhythm. I will discontinue the amiodarone infusion when the current bag is empty and continue metoprolol succinate. I recommend initiating therapy with rivaroxaban for stroke prophylaxis. I will hold off on giving him any other antiarrhythmic drugs at this time. (3) Cardiomyopathy Assessment & Plan: This is a new finding in this patient. His ejection fraction was normal 1 year ago. As above, I have started him on metoprolol succinate due to the atrial arrhythmias. I will also restart his outpatient dose of lisinopril. We will need to watch his renal function closely in light of the acute kidney injury that was present at the time of admission. At some point, he will need an ischemic evaluation with a cardiac catheterization versus nuclear stress test but I will hold off on this until his renal function stabilizes. This will not necessarily need to be done prior to discharge. (4) Primary hypertension Status: Chronic Assessment & Plan: As above, he has been started on metoprolol and lisinopril. (5) Acute kidney injury Status: Acute Assessment & Plan: His current GFR is consistent with stage III chronic kidney disease. I do not have any old results for comparison. This will need to be followed closely. His renal function has improved slightly with intravenous fluids. Given the cardiomyopathy, I would avoid excessive amounts of intravenous fluid or he may go into pulmonary edema. (6) Type 2 diabetes mellitus with complication Status: Chronic Assessment & Plan: This will be managed by the hospitalist. (7) Mass of upper lobe of right lung Assessment & Plan: Exact etiology unclear. This could be consistent with pneumonia. This will need to be followed up by his regular provider following discharge. (8) Hyponatremia Status: Acute Assessment & Plan: Exact etiology unclear. This may be multifactorial some of which could be due to pseudohyponatremia from his elevated glucose level. The hospitalist and eICU are managing this. (9) Obesity Status: Chronic Assessment & Plan: He needs to work on weight loss. (10) Personal history of COVID-19 Status: Resolved Assessment & Plan: Unclear whether or not this could have anything to do with his current clinical status. Problem Qualifiers (1) Obesity: Body mass index: BMI 35.0-35.9 BALTA CHRISTIE JR, MD Apr 25, 2021 09:29
--- NOTE | 2021-04-25 10:21 | Tele-ICU Progress Note ---
Subjective Date Seen by a Provider: Apr 25, 2021 Time Seen by a Provider: 10:21 Sepsis Event Evaluation Height, Weight, BMI Height: '" Weight: lbs. oz. kg; 35.26 BMI Method: Exam Exam Patient acknowledged, consented, and participated in this virtual visit which was conducted using real time audio/video Vital Signs Date Time Temp Pulse Resp B/P (MAP) Pulse Ox O2 Delivery O2 Flow Rate FiO2 04/25/21 10:00 79 13 114/73 94 Nasal Cannula 2.00 04/25/21 09:08 96 Nasal Cannula 2.00 04/25/21 09:00 80 42 120/65 97 Nasal Cannula 2.00 04/25/21 08:00 36.9 04/25/21 08:00 85 42 128/77 97 Nasal Cannula 2.00 04/25/21 07:00 81 42 104/70 91 Nasal Cannula 2.00 04/25/21 07:00 82 04/25/21 06:00 78 30 109/63 93 Nasal Cannula 2.00 04/25/21 05:00 80 25 124/95 92 Nasal Cannula 2.00 04/25/21 04:00 Nasal Cannula 2.00 04/25/21 04:00 81 21 117/87 97 Nasal Cannula 2.00 04/25/21 03:00 91 24 126/69 96 Nasal Cannula 2.00 04/25/21 02:00 80 111/68 93 Nasal Cannula 2.00 04/25/21 01:00 85 04/25/21 01:00 85 11 124/61 91 Nasal Cannula 2.00 04/25/21 00:00 91 26 126/65 95 Nasal Cannula 2.00 04/25/21 00:00 Nasal Cannula 2.00 04/24/21 23:00 92 30 124/58 90 Nasal Cannula 2.00 04/24/21 22:00 89 27 130/64 92 Nasal Cannula 2.00 04/24/21 21:00 86 11 121/58 98 Nasal Cannula 2.00 04/24/21 20:51 97 Nasal Cannula 2.00 04/24/21 20:15 91 27 115/76 92 Nasal Cannula 2.00 04/24/21 20:00 Nasal Cannula 2.00 04/24/21 19:43 36.7 93 18 115/81 90 Nasal Cannula 2.00 04/24/21 19:00 102 04/24/21 18:00 96 16 137/99 92 Nasal Cannula 2.00 04/24/21 17:24 118 138/80 04/24/21 17:00 118 18 138/80 95 Nasal Cannula 2.00 04/24/21 16:00 Nasal Cannula 2.00 04/24/21 16:00 104 23 128/63 94 Nasal Cannula 2.00 04/24/21 15:00 105 127/73 93 Nasal Cannula 2.00 04/24/21 15:00 37.2 04/24/21 14:45 184 140/96 93 Nasal Cannula 2.00 04/24/21 14:30 181 133/91 93 Nasal Cannula 2.00 04/24/21 14:15 174 106/96 94 Nasal Cannula 2.00 04/24/21 13:45 120 121/95 96 Nasal Cannula 2.00 04/24/21 13:30 123 148/64 97 Nasal Cannula 2.00 04/24/21 13:15 121 133/57 98 Nasal Cannula 2.00 04/24/21 13:00 106 04/24/21 13:00 106 21 142/72 98 Nasal Cannula 2.00 04/24/21 12:49 36.9 103 96 28 04/24/21 12:49 96 Nasal Cannula 2.00 04/24/21 12:45 112 17 114/36 95 Nasal Cannula 2.00 04/24/21 12:30 103 21 136/82 95 Nasal Cannula 2.00 04/24/21 12:15 108 17 151/91 96 Nasal Cannula 2.00 04/24/21 12:07 Nasal Cannula 2.00 04/24/21 12:00 101 16 118/76 95 Room Air 04/24/21 11:41 36.9 103 16 124/82 96 Room Air 04/24/21 11:30 103 04/24/21 11:30 96 Nasal Cannula 2.00 I & O 04/25/21 07:00 Intake Total 3403 ml Output Total 1750 ml Balance 1653 ml Height & Weight Height: '" Weight: lbs. oz. kg; 35.26 BMI Method: General Appearance: No Apparent Distress, Obese, Other (Plethoric) HEENT: Normal ENT Inspection Neck: Limited Range of Motion Respiratory: Chest Non Tender, Lungs Clear, Normal Breath Sounds, No Accessory Muscle Use, No Respiratory Distress Cardiovascular: Regular Rate, Rhythm, No Edema, No Gallop, No JVD, No Murmur Capillary Refill: Less Than 3 Seconds Extremity: Normal Capillary Refill, Non Tender, No Pedal Edema Neurologic/Psychiatric: Alert, Oriented x3, No Motor/Sensory Deficits, Other (Seems lethargic and slow to express himself) Skin: Normal Color, Warm/Dry Results Lab Laboratory Tests 04/24/21 12:20 04/24/21 16:46 04/24/21 18:06 04/25/21 00:04 04/25/21 04:20 04/25/21 07:50 Assessment/Plan Assessment/Plan (Tele-ICU Physician , Progress Note ) Available chart/ vitals / labs / Images reviewed Video assessment done using teleICU camera, rest of exam as per RN Discussed with RN , EXAM PER RN Events overnight : Afebrile FiO2 -2l I/O = Drips: cardisem gtt Pressors: , hemodynamically stable Consultants: gurwinder Hospital course: (04/24) Admitted for SVT.. PNA , ELMA , DKA A/P A fib RVR - s/p cardioversion 04/24 - off cardisem gtt , on amio gtt - to stop as per cards - AC with xarelto Hyperglycemia/ - insulin gtt - follow ELMA - improving - cotn hydration PNA . RUL and LLL - cont abx as present , follw cx and CXR Recent COVID 03/2021 - unknown severity Lines : (Central Line Necessity Reviewed) Collins OG: Nutrition: Analgesia: Anxiety/ delirium VTE Prophylaxis: xarelto Stress Ulcer Prophylaxis: Plans in collaboration with bedside consultants and IM MDs. Discussed with RN to reach out if any questions or concerns A total of 31minutes of critical care time was devoted to this patient today, required to treat and/or prevent further deterioration of critical care condit ion ( as above) . ELIECER MORIN MD Apr 25, 2021 10:21
--- NOTE | 2021-04-25 10:42 | Progress Note - Hospitalist ---
JACKELYN COLEMAN 04/25/21 1042: Subjective HPI/CC On Admission Date Seen by Provider: Apr 25, 2021 Time Seen by Provider: 09:00 This is a 60-year-old white male who has a history of hypertension, hyperlipidemia, and type 2 diabetes. He had a recent Covid infection in March, I believe the of this year. He was beginning to recover until 24hr prior to presentation when he is noticed increased fatigue and racing heart. He presented to the emergency room in [place] and was found to be in SVT with a rate of 240. Adenosine and Cardizem IV were not helpful. As such, he was cardioverted with 100 J. At the time of initial interview in [place] he is in sinus rhythm but has intermittent runs short runs of SVT and probable atrial fibrillation. He appears to be fatigued but denies having any chest pain. Subjective/Events-last exam Patient doing well this morning and overnight. States he was able to sleep for the first time overnight. Lying in bed during echocardiogram recording. He denies chest pain, palpitations, abdominal pain, difficulty breathing. Endorses fatigue. Review of Systems General: No Night Sweats; Fatigue HEENT: No Head Aches, No Visual Changes, No Eye Pain Pulmonary: No Dyspnea, No Cough Cardiovascular: No: Chest Pain, Palpitations, Paroxysmal Noc. Dyspnea, Edema Gastrointestinal: No: Nausea, Vomiting, Abdominal Pain, Diarrhea, Constipation Genitourinary: No Dysuria, No Frequency Musculoskeletal: No: leg pain, foot pain Neurological: No: Weakness, Numbness, Incoordination Focused Exam Sepsis Stage: Sepsis Possible Source: Pulmonary Time of Focused Exam: 09:00 Respiratory: Chest Non Tender, Lungs Clear, Normal Breath Sounds, No Accessory Muscle Use, No Respiratory Distress Cardiovascular: Regular Rate, Rhythm, No Gallop, No JVD, No Murmur, Normal Ashely pheral Pulses Capillary Refill: Less Than 3 Seconds Skin: normal color, warm/dry Objective Exam Vital Signs Vital Signs Date Time Temp Pulse Resp B/P (MAP) Pulse Ox O2 Delivery O2 Flow Rate FiO2 04/25/21 10:00 79 13 114/73 94 Nasal Cannula 2.00 04/25/21 08:00 36.9 04/24/21 12:49 28 Capillary Refill : Less Than 3 Seconds General Appearance: No Apparent Distress, Obese HEENT: PERRL/EOMI, Pharynx Normal, Moist Mucous Membranes Neck: Full Range of Motion, Normal Inspection, Non Tender, Supple Respiratory: Chest Non Tender, Lungs Clear, Normal Breath Sounds, No Accessory Muscle Use, No Respiratory Distress Cardiovascular: Regular Rate, Rhythm, No Gallop, No JVD, No Murmur, Normal Peripheral Pulses Gastrointestinal: Normal Bowel Sounds, No Organomegaly, Non Tender, Soft Rectal: Deferred Back: Normal Inspection Extremity: Normal Capillary Refill, Normal Inspection, Normal Range of Motion Neurologic/Psychiatric: Alert, Oriented x3, No Motor/Sensory Deficits, Normal Mood/Affect, stogy maker II-XII Norm as Tested Skin: Normal Color, Warm/Dry Lymphatic: No Adenopathy Results/Procedures Lab Laboratory Tests 04/24/21 12:20 04/24/21 16:46 04/24/21 18:06 04/25/21 00:04 04/25/21 04:20 04/25/21 07:50 Patient resulted labs reviewed. Imaging: Reviewed Imaging Report Assessment/Plan Assessment and Plan Assess & Plan/Chief Complaint Assessment: Supraventricular Tachycardia Probable Paroxysmal Atrial Fibrillation Cardiomyopathy Diabetic Ketoacidosis Primary Hypertension Acute Kidney Injury Type 2 Diabetes Mellitus Pneumonia Hyponatremia Obesity Personal Hx of COVID-19 Plan: Cardiology consulted Converting Diltiazem IV to Metoprolol PO Amiodarone drip completed Starting Xarelto Echocardiogram pending Insulin drip - anion gap closed, awaiting normal bicarbonate to DC insulin ggt D5 1/2NS @ 250mL/hr K+ replacement per DKA protocol Zosyn D#2 Cr improving (2.01 on admit/1.66 today) - continue IVF @ 250mL/hr Diagnosis/Problems Diagnosis/Problems (1) Paroxysmal SVT (supraventricular tachycardia) Status: Acute (2) Paroxysmal atrial fibrillation Status: Acute (3) Diabetic ketoacidosis Status: Acute Qualifiers: Qualified Codes: E11.10 - Type 2 diabetes mellitus with ketoacidosis without coma (4) Bronchopneumonia Status: Acute (5) Type 2 diabetes mellitus with complication Status: Chronic (6) Cardiomyopathy (7) Acute kidney injury Status: Acute (8) Hyponatremia Status: Acute (9) Primary hypertension Status: Chronic (10) Obesity Status: Chronic Qualifiers: (11) Personal history of COVID-19 Status: Resolved ALYSHA MANCILLA DO 04/26/21 0509: Subjective Subjective/Events-last exam Pt is doing a lot better DKA improving Bicarb was 17 Tachycardia of 240 in [place] ER now that is much improved after cardioversion and Cardizem will be transitioned today by Dr. Verdugo Echocardiogram will be done today Acute kidney injury at 1.66 will be monitored Zosyn antibiotic maintained for pneumonia Review of Systems General: Fatigue, Malaise Objective Exam General Appearance: No Apparent Distress, WD/WN, Chronically ill, Obese Respiratory: No Accessory Muscle Use, No Respiratory Distress, Crackles, Decreased Breath Sounds Cardiovascular: Regular Rate, Rhythm Neurologic/Psychiatric: Alert, Oriented x3, Depressed Affect Assessment/Plan Assessment and Plan Assess & Plan/Chief Complaint Assessment: SVT A. fib with RVR DKA Pneumonia Acute kidney injury Plan: Appreciate cardiology Insulin drip Antibiotics Check chest x-ray in the morning Supervisory-Addendum Brief Verification & Attestation Participated in pt care: history, MDM, physical Personally performed: exam, history, MDM, supervision of care Care discussed with: Medical Student Procedures: n/a Results interpretation: Verified all documentation Verification and Attestation of Medical Student E/M Service A medical student performed and documented this service in my presence. I reviewed and verified all information documented by the medical student and made modifications to such information, when appropriate. I personally performed the physical exam and medical decision making. Alysha Mancilla, Apr 26, 2021,05:07 JACKELYN COLEMAN Apr 25, 2021 10:42 ALYSHA MANCILLA DO Apr 26, 2021 05:09
[2021-04-25] MEDS ORDERED: CITA20TA9 PO (11:35)
[2021-04-25] MEDS ORDERED: PRAV40TA2 PO (11:35)
[2021-04-25] MEDS ORDERED: DAPA1TAB3 PO (11:35)
[2021-04-25] MEDS ORDERED: CETI10TA17 PO (11:35)
[2021-04-25] MEDS ORDERED: LISI1TAB48 PO (11:35)
[2021-04-25] MEDS ORDERED: OMEG-179 PO (11:35)
[2021-04-25] MEDS ORDERED: ASPI-1238 PO (11:35)
[2021-04-25] MEDS ORDERED: VITA-189 PO (11:35)
[2021-04-25] MEDS ORDERED: LIRA0.6P3 SQ (11:35)
[2021-04-25] MEDS ORDERED: INSU100I29 SQ (11:35)
[2021-04-25] MEDS ORDERED: INSU100I14 SQ (11:35)
--- NOTE | 2021-04-25 11:46 | Progress Note ---
ALEJANDRA CAVAZOS MED STUDENT 04/25/21 1146: Subjective Date Seen by a Provider: Apr 25, 2021 Time Seen by a Provider: 08:05 Subjective/Events-last exam Pt has no new complaints, overall feeling improved. Pt recieved echo this am. Anion gap closed this am, bicarb still low. Pt heart rate staying in the 80s, irregular this am. Pt denies chest pain, heeadache, vision changes, lightheadness, abd pain. Review of Systems General: No Chills, No Night Sweats; Fatigue HEENT: No Head Aches, No Visual Changes Pulmonary: No Dyspnea, No Pleuritic Chest Pain Cardiovascular: Palpitations; No: Chest Pain, Paroxysmal Noc. Dyspnea, Lt Headedness Gastrointestinal: No: Nausea, Vomiting, Diarrhea, Constipation Neurological: No: Numbness, Change in speech, Confusion Focused Exam Time of Focused Exam: 09:00 Objective Exam Last Set of Vital Signs Vital Signs Date Time Temp Pulse Resp B/P (MAP) Pulse Ox O2 Delivery O2 Flow Rate FiO2 04/25/21 11:00 81 17 138/69 95 Nasal Cannula 2.00 04/25/21 08:00 36.9 04/24/21 12:49 28 Capillary Refill : Less Than 3 Seconds I&O Intake and Output 04/25/21 00:00 Intake Total 2403 ml Output Total 1350 ml Balance 1053 ml Intake IV Total 2403 ml Output Urine Total 1350 ml # Emeses 3 Daily Weight Change Yes, 2-13 lbs General: Alert, Oriented X3, No Acute Distress HEENT: Atraumatic, EOMI Lungs: Other (restricted air movement, no wheezing, arthur crackles b/l. ) Heart: Other (no murmur, regular rate, irregular rheythem ) Abdomen: Normal Bowel Sounds, Soft Extremities: No Clubbing, No Cyanosis Neuro: Normal Speech, Cranial Nerves 3-12 NL Psych/Mental Status: Mental Status NL, Mood NL Results Lab Laboratory Tests 04/24/21 12:10: Glucometer 303H 04/24/21 12:20: White Blood Count 11.2H, Red Blood Count 5.10, Hemoglobin 14.2, Hematocrit 44, Mean Corpuscular Volume 85, Mean Corpuscular Hemoglobin 28, Mean Corpuscular Hemoglobin Concent 33, Red Cell Distribution Width 14.5, Platelet Count 180, Mean Platelet Volume 10.4, Immature Granulocyte % (Auto) 1, Neutrophils (%) (Auto) 84H, Lymphocytes (%) (Auto) 3L, Monocytes (%) (Auto) 11, Eosinophils (%) (Auto) 0, Basophils (%) (Auto) 0, Neutrophils # (Auto) 9.4H, Lymphocytes # (Auto) 0.3L, Monocytes # (Auto) 1.2H, Eosinophils # (Auto) 0.0, Basophils # (Auto) 0.0, Immature Granulocyte # (Auto) 0.1, Neutrophils % (Manual) 79, Lymphocytes % (Manual) 4, Monocytes % (Manual) 10, Band Neutrophils 7, [place] Cells SLIGHT, Sodium Level 125*L, Potassium Level 4.7, Chloride Level 86L, Carbon Dioxide Level 10L, Anion Gap 29H, Blood Urea Nitrogen 44H, Creatinine 2.01H, Estimat Glomerular Filtration Rate 38, BUN/Creatinine Ratio 22, Glucose Level 339H, Calcium Level 9.4, Corrected Calcium 10.0, Total Bilirubin 0.3, Aspartate Amino Transf (AST/SGOT) 36H, Alanine Aminotransferase (ALT/SGPT) 24, Alkaline Phosphatase 105, Troponin I < 0.028, C-Reactive Protein High Sensitivity 48.62H, Total Protein 7.4, Albumin 3.3, Beta-Hydroxybutyrate (Chem panel) 10.07H, Thyroid Stimulating Hormone (TSH) 1.16 04/24/21 14:30: Blood Gas Puncture Site RIGHT RADIAL, Blood Gas Patient Temperature 37.1, Arterial Blood pH 7.35L, Arterial Blood Partial Pressure CO2 29L, Arterial Blood Partial Pressure O2 58L, Arterial Blood HCO3 16*L, Arterial Blood Total CO2 16.7L, Arterial Blood Oxygen Saturation 91L, Arterial Blood Base Excess -8.6L, Stanley Test YES-POS, Blood Gas Ventilator Setting NO, Blood Gas Inspired Oxygen 2 04/24/21 14:34: Troponin I < 0.028 04/24/21 15:27: Urine Color YELLOW, Urine Clarity CLEAR, Urine pH 5.5, Urine Specific [place] 1.025H, Urine Protein 2+H, Urine Glucose (UA) 3+H, Urine Ketones 3+H, Urine Nitrite NEGATIVE, Urine Bilirubin 2+H, Urine Urobilinogen 0.2, Urine Leukocyte Esterase NEGATIVE, Urine RBC (Auto) TRACE-IH, Urine RBC NONE, Urine WBC 5-10H, Urine Squamous Epithelial Cells NONE, Urine Crystals NONE, Urine Bacteria TRACE, Urine Casts PRESENT, Urine Hyaline Casts 0-2H, Urine Mucus NEGATIVE, Urine Culture Indicated YES 04/24/21 16:07: Glucometer 351H 04/24/21 16:46: Sodium Level 126L, Potassium Level 4.0, Chloride Level 89L, Carbon Dioxide Level 11L, Anion Gap 26H, Blood Urea Nitrogen 45H, Creatinine 1.85H, Estimat Glomerular Filtration Rate 42, BUN/Creatinine Ratio 24, Glucose Level 341H, Calcium Level 8.7 04/24/21 17:05: Glucometer 326H 04/24/21 18:04: Glucometer 329H 04/24/21 18:06: Sodium Level 127L, Potassium Level 4.2, Chloride Level 90L, Carbon Dioxide Level 13L, Anion Gap 24H, Blood Urea Nitrogen 44H, Creatinine 1.81H, Estimat Glomerular Filtration Rate 43, BUN/Creatinine Ratio 24, Glucose Level 332H, Calcium Level 8.7, Beta-Hydroxybutyrate (Chem panel) 7.71H 04/24/21 18:47: Glucometer 315H 04/24/21 20:03: Glucometer 298H 04/24/21 21:02: Glucometer 265H 04/24/21 22:10: Troponin I < 0.028 04/24/21 22:12: Glucometer 275H 04/24/21 23:08: Glucometer 253H 04/25/21 00:03: Glucometer 230H 04/25/21 00:04: Sodium Level 127L, Potassium Level 3.8, Chloride Level 95L, Carbon Dioxide Level 16L, Anion Gap 16H, Blood Urea Nitrogen 42H, Creatinine 1.79H, Estimat Glomerular Filtration Rate 43, BUN/Creatinine Ratio 23, Glucose Level 238H, Calcium Level 8.3L 04/25/21 00:57: Glucometer 230H 04/25/21 01:52: Glucometer 241H 04/25/21 03:00: Glucometer 226H 04/25/21 04:04: Glucometer 168H 04/25/21 04:20: White Blood Count 11.0, Red Blood Count 4.32, Hemoglobin 11.8L, Hematocrit 35L, Mean Corpuscular Volume 81, Mean Corpuscular Hemoglobin 27, Mean Corpuscular Hemoglobin Concent 34, Red Cell Distribution Width 14.1, Platelet Count 191, Mean Platelet Volume 10.5, Immature Granulocyte % (Auto) 3, Neutrophils (%) (Auto) 78H, Lymphocytes (%) (Auto) 5L, Monocytes (%) (Auto) 13H, Eosinophils (%) (Auto) 0, Basophils (%) (Auto) 1, Neutrophils # (Auto) 8.6H, Lymphocytes # (Auto) 0.5L, Monocytes # (Auto) 1.4H, Eosinophils # (Auto) 0.0, Basophils # (Auto) 0.1, Immature Granulocyte # (Auto) 0.3H, Prothrombin Time 14.2, INR Co mment 1.1, Sodium Level 128L, Potassium Level 3.8, Chloride Level 99, Carbon Dioxide Level 17L, Anion Gap 12, Blood Urea Nitrogen 39H, Creatinine 1.66H, Estimat Glomerular Filtration Rate 47, BUN/Creatinine Ratio 23, Glucose Level 189H, Calcium Level 8.0L, Corrected Calcium 9.0, Phosphorus Level 2.3, Magnesium Level 1.9, Total Bilirubin 0.4, Aspartate Amino Transf (AST/SGOT) 71H, Alanine Aminotransferase (ALT/SGPT) 49, Alkaline Phosphatase 137H, Troponin I < 0.028, Total Protein 5.5L, Albumin 2.8L, Triglycerides Level 109, Cholesterol Level 98, LDL Cholesterol Direct 53, VLDL Cholesterol 22, HDL Cholesterol 19L, Beta- Hydroxybutyrate (Chem panel) 0.98H 04/25/21 04:33: Glucometer 191H 04/25/21 04:57: Glucometer 181H 04/25/21 06:02: Glucometer 188H 04/25/21 06:46: Glucometer 205H 04/25/21 07:50: Sodium Level 127L, Potassium Level 3.5L, Chloride Level 101, Carbon Dioxide Level 16L, Anion Gap 10, Blood Urea Nitrogen 35H, Creatinine 1.53H, Estimat Glomerular Filtration Rate 52, BUN/Creatinine Ratio 23, Glucose Level 189H, Calcium Level 7.9L 04/25/21 08:14: Glucometer 177H 04/25/21 09:28: Glucometer 166H 04/25/21 10:20: Glucometer 173H 04/25/21 11:25: Glucometer 150H Assessment/Plan Assessment/Plan Assess & Plan/Chief Complaint DKA IDDM Hyponatremia Appears DKA is 2/2 medication non-compliance (has not been taking home- insulin since CVD dx because he 'feels bad') Gap closed this am, Bicarb 16. Insulin drip, K replacement protocol, high volume fluid resuscitation, q1hr accucheck, q4hr bmp. Diabetes education SVT Paroxysmal Afib s/p cardioversion, amiodarone drip, cardizem drip. Cardiology following, they are: Starting metoprolol succ Starting xarelto. 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 Cards following - appreciate recommendations. Pt started on metroprolol succ. Continue ASA. guidline-directed medical therarpy on outpt basis Since new onset - ischemic workup as outpt? Prerenal ELMA (on CKD??) Cr/BUN improving. No baseline Cr in EMR to compare against. Dose meds renally accordingly. Dense consolidation with air bronchograms involving the RUL and LLL lung regions s/p COVID-19 in March As per 04/24 chest/abd CT findings Zosyn (day 2) Recommend outpt f/u CT of chest in 1mo to confirm resolution. HTN HLP Cardiac RF workup with TSH, HgA1c, and lipid panel LDLs in low 50s, TSH WNL. HgA1c pending. GI ppx: start 20 pepcid DVT ppx: ALYSHA Mccauley DO 04/26/21 0523: Supervisory-Addendum Brief Verification & Attestation Participated in pt care: history, MDM, physical Personally performed: exam, history, MDM, supervision of care Care discussed with: Medical Student Procedures: n/a Results interpretation: Verified all documentation Verification and Attestation of Medical Student E/M Service A medical student performed and documented this service in my presence. I reviewed and verified all information documented by the medical student and made modifications to such information, when appropriate. I personally performed the physical exam and medical decision making. Alysha Mancilla, Apr 26, 2021,05:23 ALEJANDRA CAVAZOS MED STUDENT Apr 25, 2021 11:46 ALYSHA MANCILLA DO Apr 26, 2021 05:23
[2021-04-25 12:25] LABS: POTASSIUM 3.6 MMOL/L (3.6-5.0)
[2021-04-25 12:26] LABS: CALCIUM 7.8 MG/DL (8.5-10.1)
[2021-04-25 12:30] LABS: CREATININE SERUM 1.45 MG/DL (0.60-1.30)
[2021-04-25] MEDS: inSUlin REGULAR HUMAN VIAL 250 UNITS in NORMAL SALINE 250 ML IV SCH (12:56)
[2021-04-25 18:30] LABS: POTASSIUM 3.7 MMOL/L (3.6-5.0)
[2021-04-25] MEDS: RIVAROXABAN 20 MG TABLET (XARELTO) PO SCH (18:34)
[2021-04-25 18:36] LABS: CREATININE SERUM 1.22 MG/DL (0.60-1.30)
[2021-04-25] MEDS ORDERED: FUROSEMIDE 40 MG/4 ML INJ (LASIX) IVP ONE (20:15)
[2021-04-25] MEDS ORDERED: FUROSEMIDE 40 MG/4 ML INJ (LASIX) ONE (21:07)
[2021-04-25] MEDS: D5 1/2 NS W/KCL 20 MEQ/L 1,000 ML IV SCH (22:00)
[2021-04-26 00:30] LABS: CALCIUM 8.2 MG/DL (8.5-10.1); CREATININE SERUM 1.14 MG/DL (0.60-1.30); POTASSIUM 3.6 MMOL/L (3.6-5.0)
[2021-04-26 05:12] LABS: BASOPHILS % (AUTO) 0 % (0-10); EOSINOPHILS # (AUTO) 0.1 10^3/uL (0.0-0.3); EOSINOPHILS % (AUTO) 1 % (0-10); HEMATOCRIT 37 % (40-54); HEMOGLOBIN 12.4 g/dL (13.3-17.7); LYMPHOCYTES # (AUTO) 0.7 10^3/uL (1.0-4.0); LYMPHOCYTES % (AUTO) 8 % (12-44); MEAN CORPUSCULAR HEMOGLOBIN 28 pg (25-34); MEAN CORPUSCULAR HGB CONC 34 g/dL (32-36); MEAN CORPUSCULAR VOLUME 81 fL (80-99); MEAN PLATELET VOLUME 10.4 fL (9.0-12.2); MONOCYTES # (AUTO) 1.1 10^3/uL (0.0-1.0); MONOCYTES % (AUTO) 12 % (0-12); NEUTROPHILS # (AUTO) 6.9 10^3/uL (1.8-7.8); NEUTROPHILS % (AUTO) 74 % (42-75); PLATELET COUNT 192 10^3/uL (130-400); WHITE BLOOD COUNT 9.3 10^3/uL (4.3-11.0)
[2021-04-26] MEDS: PIPERACILLIN SODIUM/TAZOBACTAM 4.5 GM in NS (IVPB) 100 ML IV SCH ×3 (05:56→22:07)
[2021-04-26 06:46] LABS: ALBUMIN 2.8 GM/DL (3.2-4.5)
[2021-04-26 06:47] LABS: POTASSIUM 3.7 MMOL/L (3.6-5.0)
[2021-04-26 06:48] LABS: CALCIUM 8.3 MG/DL (8.5-10.1)
[2021-04-26 06:49] LABS: TOTAL PROTEIN 5.6 GM/DL (6.4-8.2)
[2021-04-26 06:51] LABS: BILIRUBIN,TOTAL 0.4 MG/DL (0.1-1.0)
[2021-04-26 06:53] LABS: CREATININE SERUM 1.08 MG/DL (0.60-1.30)
[2021-04-26 06:55] LABS: MAGNESIUM 1.8 MG/DL (1.6-2.4)
--- NOTE | 2021-04-26 07:08 | Diagnostic Imaging Report ---
INDICATION: Respiratory distress. Compared 04/24/2021 FINDINGS: Bilateral infiltrates while substantial have improved in the interim and there is improved lung expansion. Upper limits heart size stable. No effusion or pneumothorax. IMPRESSION: Improvements in bilateral infiltrates. Residual disease remains greatest at the right upper lobe and left perihilar distribution. No adverse development. Dictated by: Dictated on workstation # [id number]
[2021-04-26] MEDS: MAGNESIUM 1 GM/100 ML IVPB 100 ML IV SCH (07:34)
[2021-04-26] MEDS: KCL 20 MEQ TAB (K-DUR) PO SCH (07:35)
[2021-04-26] MEDS: POTASSIUM CL 10MEQ/50ML IVPB 50 ML IV SCH (07:35)
[2021-04-26] MEDS: ASPIRIN E.C. 81 MG (ECOTRIN) TAB PO SCH (08:26)
[2021-04-26] MEDS: meTOproloL SUCCINATE 50 MG (TOPROL XL) TAB PO SCH (08:26)
--- NOTE | 2021-04-26 09:57 | Cardiology Progress Note ---
Progress Note-Cardiology Events since last exam Date Seen by Provider: Apr 26, 2021 Time Seen by Provider: 09:55 Events since last exam I am following him due to supraventricular tachycardia, paroxysmal atrial fi brillation and newly diagnosed cardiomyopathy. He remains in the intensive care unit on insulin infusion. He states his breathing has improved and his palpitations have resolved. He denies chest discomfort, syncope, or ankle edema. I had intended to start him on lisinopril on 04/25 but somehow I inadvertently did not order the medication. I have just ordered it now. Certain portions of this document may have been dictated utilizing voice recognition technology. Inherent to this technology, typographical and grammatical errors may exist. As much as I am diligent to identify and correct these mistakes, some errors may remain in the document. Vitals Last set of Vitals Signs Vital Signs 04/24/21 04/26/21 04/26/21 12:49 15:00 15:24 Temp 36.3 Pulse 81 Resp 13 B/P (MAP) 119/73 Pulse Ox 98 O2 Delivery Nasal Cannula O2 Flow Rate 1.00 FiO2 28 Labs Labs Laboratory Tests 04/25/21 18:15 04/26/21 00:05 04/26/21 04:55 04/26/21 12:20 Exam Vital Signs Vital Signs Date Time Temp Pulse Resp B/P (MAP) Pulse Ox O2 Delivery O2 Flow Rate FiO2 04/26/21 15:24 36.3 04/26/21 15:00 81 13 119/73 98 Nasal Cannula 1.00 04/24/21 12:49 28 Physical Exam General: Alert. No acute distress. He is obese. Eye: No xanthelasma. HENT: Normocephalic. Neck: Jugular venous pressure does not appear elevated. Respiratory: Lungs are clear to auscultation. Respirations are non-labored. Breath sounds are equal. Symmetrical chest wall expansion. Cardiovascular: Normal rate. Regular rhythm. No murmur. No gallop. No edema. Gastrointestinal: Soft. Normal bowel sounds. Skin: Warm. Dry. Neurologic: Alert and oriented to person, place, time. Cranial nerves 3-11 grossly intact. Psychiatric: Cooperative. Appropriate mood & affect. Labs Laboratory Tests Test 04/25/21 16:17 04/25/21 17:42 04/25/21 18:15 04/25/21 19:28 Range/Units Glucometer 144 H 104 98 70-110 MG/DL Sodium Level 130 L 135-145 MMOL/L Potassium Level 3.7 3.6-5.0 MMOL/L Chloride Level 104 98-107 MMOL/L Carbon Dioxide Level 16 L 21-32 MMOL/L Anion Gap 10 5-14 MMOL/L Blood Urea Nitrogen 27 H 7-18 MG/DL Creatinine 1.22 0.60-1.30 MG/DL Estimat Glomerular Filtration Rate 69 BUN/Creatinine Ratio 22 Glucose Level 91 70-105 MG/DL Calcium Level 8.0 L 8.5-10.1 MG/DL Test 04/25/21 20:17 04/25/21 21:02 04/25/21 22:03 04/25/21 22:55 Range/Units Glucometer 115 H 113 H 106 117 H 70-110 MG/DL Test 04/26/21 00:05 04/26/21 00:12 04/26/21 01:03 04/26/21 02:05 Range/Units Sodium Level 132 L 135-145 MMOL/L Potassium Level 3.6 3.6-5.0 MMOL/L Chloride Level 106 98-107 MMOL/L Carbon Dioxide Level 15 L 21-32 MMOL/L Anion Gap 11 5-14 MMOL/L Blood Urea Nitrogen 25 H 7-18 MG/DL Creatinine 1.14 0.60-1.30 MG/DL Estimat Glomerular Filtration Rate 75 BUN/Creatinine Ratio 22 Glucose Level 114 H 70-105 MG/DL Calcium Level 8.2 L 8.5-10.1 MG/DL Glucometer 128 H 111 H 122 H 70-110 MG/DL Test 04/26/21 02:55 04/26/21 03:52 04/26/21 04:49 04/26/21 04:55 Range/Units Glucometer 106 115 H 109 70-110 MG/DL White Blood Count 9.3 4.3-11.0 10^3/uL Red Blood Count 4.50 4.30-5.52 10^6/uL Hemoglobin 12.4 L 13.3-17.7 g/dL Hematocrit 37 L 40-54 % Mean Corpuscular Volume 81 80-99 fL Mean Corpuscular Hemoglobin 28 25-34 pg Mean Corpuscular Hemoglobin Concent 34 32-36 g/dL Red Cell Distribution Width 14.8 H 10.0-14.5 % Platelet Count 192 130-400 10^3/uL Mean Platelet Volume 10.4 9.0-12.2 fL Immature Granulocyte % (Auto) 6 % Neutrophils (%) (Auto) 74 42-75 % Lymphocytes (%) (Auto) 8 L 12-44 % Monocytes (%) (Auto) 12 0-12 % Eosinophils (%) (Auto) 1 0-10 % Basophils (%) (Auto) 0 0-10 % Neutrophils # (Auto) 6.9 1.8-7.8 10^3/uL Lymphocytes # (Auto) 0.7 L 1.0-4.0 10^3/uL Monocytes # (Auto) 1.1 H 0.0-1.0 10^3/uL Eosinophils # (Auto) 0.1 0.0-0.3 10^3/uL Basophils # (Auto) 0.0 0.0-0.1 10^3/uL Immature Granulocyte # (Auto) 0.5 H 0.0-0.1 10^3/uL Sodium Level 131 L 135-145 MMOL/L Potassium Level 3.7 3.6-5.0 MMOL/L Chloride Level 106 98-107 MMOL/L Carbon Dioxide Level 15 L 21-32 MMOL/L Anion Gap 10 5-14 MMOL/L Blood Urea Nitrogen 23 H 7-18 MG/DL Creatinine 1.08 0.60-1.30 MG/DL Estimat Glomerular Filtration Rate 80 BUN/Creatinine Ratio 21 Glucose Level 118 H 70-105 MG/DL Calcium Level 8.3 L 8.5-10.1 MG/DL Corrected Calcium 9.3 8.5-10.1 MG/DL Phosphorus Level 2.0 L 2.3-4.7 MG/DL Magnesium Level 1.8 1.6-2.4 MG/DL Total Bilirubin 0.4 0.1-1.0 MG/DL Aspartate Amino Transf (AST/SGOT) 123 H 5-34 U/L Alanine Aminotransferase (ALT/SGPT) 133 H 0-55 U/L Alkaline Phosphatase 232 H 40-136 U/L Total Protein 5.6 L 6.4-8.2 GM/DL Albumin 2.8 L 3.2-4.5 GM/DL Test 04/26/21 05:58 04/26/21 06:50 04/26/21 07:50 04/26/21 09:06 Range/Units Glucometer 120 H 147 H 118 H 133 H 70-110 MG/DL Test 04/26/21 09:55 04/26/21 10:59 04/26/21 12:07 04/26/21 12:20 Range/Units Glucometer 149 H 162 H 142 H 70-110 MG/DL Sodium Level 131 L 135-145 MMOL/L Potassium Level 3.8 3.6-5.0 MMOL/L Chloride Level 105 98-107 MMOL/L Carbon Dioxide Level 17 L 21-32 MMOL/L Anion Gap 9 5-14 MMOL/L Blood Urea Nitrogen 20 H 7-18 MG/DL Creatinine 1.08 0.60-1.30 MG/DL Estimat Glomerular Filtration Rate 80 BUN/Creatinine Ratio 19 Glucose Level 163 H 70-105 MG/DL Calcium Level 8.4 L 8.5-10.1 MG/DL Test 04/26/21 13:01 04/26/21 14:10 04/26/21 15:22 Range/Units Glucometer 148 H 177 H 160 H 70-110 MG/DL Diagnosis/Problems Diagnosis/Problems (1) Supraventricular tachycardia Assessment & Plan: He seems to be having a combination supraventricular tachycardia of unclear mechanism in addition to paroxysmal atrial fibrillation. I recommend he continue oral beta-vishal. I previously discontinued the diltiazem infusion. (2) Paroxysmal atrial fibrillation Status: Acute Assessment & Plan: In addition to supraventricular tachycardia, he also seems to be having some paroxysmal atrial fibrillation. I previously started him on intravenous amiodarone and he converted to sinus rhythm. I discontinued the amiodarone infusion after he received the first bag. He should continue metoprolol succinate. I recommend continuing rivaroxaban for stroke prophylaxis. I will hold off on giving him any other antiarrhythmic drugs at this time. (3) Cardiomyopathy Assessment & Plan: This is a new finding in this patient. His ejection fraction was normal 1 year ago. Exact etiology of this decline is unclear. Tachycardia mediated cardiomyopathy is in the differential diagnosis as is ischemic heart disease. As above, I have started him on metoprolol succinate due to the atrial arrhythmias. I did order his lisinopril today which somehow did not get ordered on 04/25. At some point, he will need an ischemic evaluation with a cardiac catheterization versus nuclear stress test but I will hold off on this until his renal function stabilizes. This will not necessarily need to be done prior to discharge. (4) Primary hypertension Status: Chronic Assessment & Plan: As above, he has been started on metoprolol and lisinopril. (5) Acute kidney injury Status: Acute Assessment & Plan: His presenting GFR was consistent with stage III chronic kidney disease. I do not have any old results for comparison. This will need to be followed closely. His renal function has improved. (6) Type 2 diabetes mellitus with complication Status: Chronic Assessment & Plan: This is being managed by the hospitalist. His hemoglobin A1c was over 13 which is consistent with uncontrolled diabetes. He has underlying chronic kidney disease as noted above. Hopefully he can be trans itioned off the insulin infusion in the near future. (7) Mass of upper lobe of right lung Assessment & Plan: Exact etiology unclear. This could be consistent with pneumonia. This will need to be followed up by his regular provider following discharge. He is currently receiving antibiotics. (8) Hyponatremia Status: Acute Assessment & Plan: Exact etiology unclear. This may be multifactorial some of which could be due to pseudohyponatremia from his elevated glucose level. The hospitalist and eICU are managing this. (9) Obesity Status: Chronic Assessment & Plan: He needs to work on weight loss. (10) Personal history of COVID-19 Status: Resolved Assessment & Plan: Unclear whether or not this could have anything to do with his current clinical status. Problem Qualifiers (1) Obesity: Body mass index: BMI 35.0-35.9 BALTA CHRISTIE JR, MD Apr 26, 2021 09:57
[2021-04-26] MEDS: RT-ALBUTEROL SULF 2.5 MG/3 ML PRE-MIX VIAL INH SCH ×2 (09:59→22:00)
--- NOTE | 2021-04-26 09:59 | Tele-ICU Progress Note ---
Subjective Date Seen by a Provider: Apr 26, 2021 Time Seen by a Provider: 09:57 Sepsis Event Evaluation Height, Weight, BMI Height: '" Weight: lbs. oz. kg; 35.26 BMI Method: Focused Exam Time of Focused Exam: 09:00 Exam Exam Patient acknowledged, consented, and participated in this virtual visit which was conducted using real time audio/video Vital Signs Date Time Temp Pulse Resp B/P (MAP) Pulse Ox O2 Delivery O2 Flow Rate FiO2 04/26/21 09:00 88 21 150/80 96 Nasal Cannula 1.00 04/26/21 08:00 36.4 04/26/21 08:00 86 151/84 96 Nasal Cannula 1.00 04/26/21 08:00 96 Nasal Cannula 1.00 04/26/21 07:45 Nasal Cannula 1.00 04/26/21 07:00 87 28 156/87 95 Nasal Cannula 2.00 04/26/21 07:00 81 04/26/21 06:00 91 38 162/86 86 Nasal Cannula 2.00 04/26/21 05:00 84 13 146/89 97 Nasal Cannula 2.00 04/26/21 04:00 97 Nasal Cannula 2.00 04/26/21 04:00 86 27 136/87 96 Nasal Cannula 2.00 04/26/21 03:00 81 25 139/84 97 Nasal Cannula 2.00 04/26/21 02:52 36.3 Nasal Cannula 2.00 04/26/21 02:00 88 23 140/92 94 Nasal Cannula 2.00 04/26/21 01:00 85 04/26/21 01:00 85 26 143/89 94 Nasal Cannula 2.00 04/26/21 00:13 95 Nasal Cannula 2.00 04/26/21 00:00 88 14 140/96 97 Nasal Cannula 2.00 04/25/21 23:44 36.6 Nasal Cannula 2.00 04/25/21 23:00 79 33 153/81 94 Nasal Cannula 2.00 04/25/21 22:00 79 26 126/76 94 Nasal Cannula 2.00 04/25/21 21:01 95 Nasal Cannula 1.00 04/25/21 21:00 83 20 126/80 93 Nasal Cannula 2.00 04/25/21 20:39 36.4 04/25/21 20:00 81 27 132/78 91 Nasal Cannula 2.00 04/25/21 20:00 91 Nasal Cannula 2.00 04/25/21 19:00 81 04/25/21 19:00 81 15 149/87 92 Nasal Cannula 2.00 04/25/21 18:00 75 133/77 Nasal Cannula 2.00 04/25/21 17:00 78 11 150/59 93 Nasal Cannula 2.00 04/25/21 16:00 81 130/82 91 Nasal Cannula 2.00 04/25/21 16:00 Nasal Cannula 2.00 04/25/21 16:00 36.2 04/25/21 15:00 84 28 125/80 89 Nasal Cannula 2.00 04/25/21 14:00 86 17 126/60 95 Nasal Cannula 2.00 04/25/21 13:28 84 04/25/21 13:00 86 17 135/78 95 Nasal Cannula 2.00 04/25/21 12:00 Nasal Cannula 2.00 04/25/21 12:00 81 17 114/51 93 Nasal Cannula 2.00 04/25/21 11:00 81 17 138/69 95 Nasal Cannula 2.00 04/25/21 10:00 79 13 114/73 94 Nasal Cannula 2.00 I & O 04/26/21 07:00 Intake Total 7241.6 ml Output Total 7175 ml Balance 66.6 ml Height & Weight Height: '" Weight: lbs. oz. kg; 35.26 BMI Method: General Appearance: No Apparent Distress, WD/WN, Chronically ill, Obese HEENT: PERRL/EOMI, Pharynx Normal, Moist Mucous Membranes Neck: Full Range of Motion, Normal Inspection, Non Tender, Supple Respiratory: No Accessory Muscle Use, No Respiratory Distress, Crackles, Decreased Breath Sounds Cardiovascular: Regular Rate, Rhythm Capillary Refill: Less Than 3 Seconds Extremity: Normal Capillary Refill, Normal Inspection, Normal Range of Motion Neurologic/Psychiatric: Alert, Oriented x3, Depressed Affect Skin: Normal Color, Warm/Dry Lymphatic: No Adenopathy Results Lab Laboratory Tests 04/24/21 12:20 04/24/21 16:46 04/24/21 18:06 04/25/21 00:04 04/25/21 04:20 04/25/21 07:50 04/25/21 12:00 04/25/21 18:15 04/26/21 00:05 04/26/21 04:55 Assessment/Plan Assessment/Plan (Tele-ICU Physician , Progress Note ) Available chart/ vitals / labs / Images reviewed Video assessment done using teleICU camera, rest of exam as per RN Discussed with RN , EXAM PER RN Events overnight : Afebrile FiO2 -2l I/O = Drips: cardisem gtt Pressors: , hemodynamically stable Consultants: gurwinder Hospital course: (04/24) Admitted for SVT- cardisem , amio gtt , PNA , ELMA , DKA - insulin gtt 04/25 - flexyseal with severe diarrhea , elv LFT A/P A fib RVR - s/p cardioversion 04/24 - off cardizem gtt , on amio gtt - to stop as per cards - AC with xarelto Severe diarrhea - ? covid vs bacr - check WBC in stool, check for c diff , check Cx - flexy seal placed 03/25 Hyperglycemia/ - insulin gtt most likely safe to stop - patient had normal anion gap metabolic acidosis due to bicarb loss with severe diarrhea - follow ELMA - improving - cont hydration - resolved PNA . RUL and LLL - cont abx as present , follw cx and CXR Elevated LFT - most likely due to ZOSYN - will check US liver , await cx - reconsider ABX Recent COVID 03/2021 - unknown severity Lines : periph (Central Line Necessity Reviewed) Collins + OG: Nutrition: npo Analgesia: Anxiety/ delirium VTE Prophylaxis: xarelto Stress Ulcer Prophylaxis: Plans in collaboration with bedside consultants and IM MDs. Discussed with RN to reach out if any questions or concerns A total of 31minutes of critical care time was devoted to this patient today, required to treat and/or prevent further deterioration of critical care condition ( as above) . ELIECER MORIN MD Apr 26, 2021 09:59
[2021-04-26] MEDS ORDERED: lisINopril 10 MG (PRINIVIL) TABLET PO ONE (10:00)
--- NOTE | 2021-04-26 10:46 | Progress Note - Hospitalist ---
JACKELYN COLEMAN 04/26/21 1046: Subjective HPI/CC On Admission Date Seen by Provider: Apr 26, 2021 Time Seen by Provider: 09:00 This is a 60-year-old white male who has a history of hypertension, hyperlipidemia, and type 2 diabetes. He had a recent Covid infection in March, I believe the of this year. He was beginning to recover until 24hr prior to presentation when he is noticed increased fatigue and racing heart. He presented to the emergency room in [place] and was found to be in SVT with a rate of 240. Adenosine and Cardizem IV were not helpful. As such, he was cardioverted with 100 J. At the time of initial interview in [place] he is in sinus rhythm but has intermittent runs short runs of SVT and probable atrial fibrillation. He appears to be fatigued but denies having any chest pain. Subjective/Events-last exam Patient resting comfortably in bed. States that last night and this morning he is feeling mildly improved. He still endorses weakness and fatigue along with continued diarrhea, but he denies chest pain, shortness of breath, and abdominal pain. Nursing reports multiple full bed changes yesterday for soiled linens. He is hopeful and looking forward to getting off the insulin drip at the appropriate time. Review of Systems General: No Chills, No Night Sweats; Fatigue HEENT: No Head Aches, No Visual Changes, No Eye Pain Pulmonary: No Dyspnea, No Cough Cardiovascular: No: Chest Pain, Palpitations, Orthopnea Gastrointestinal: Diarrhea; No: Nausea, Vomiting, Abdominal Pain, Constipation Genitourinary: No Dysuria, No Frequency Musculoskeletal: No: leg pain, foot pain Neurological: Weakness; No: Numbness, Incoordination Focused Exam Sepsis Stage: Sepsis Possible Source: Pulmonary Time of Focused Exam: 09:00 Respiratory: Chest Non Tender, Lungs Clear (DELIO, LLL, RLL), Normal Breath Sounds (DELIO, LLL, RLL), No Accessory Muscle Use, No Respiratory Distress, Crackles (RUL) Cardiovascular: Regular Rate, Rhythm, No Edema, No Gallop, No JVD, No Murmur, Normal Peripheral Pulses Capillary Refill: Less Than 3 Seconds Skin: normal color, warm/dry Objective Exam Vital Signs Vital Signs Date Time Temp Pulse Resp B/P (MAP) Pulse Ox O2 Delivery O2 Flow Rate FiO2 04/26/21 10:00 87 12 153/86 98 Nasal Cannula 1.00 04/26/21 08:00 36.4 04/24/21 12:49 28 Capillary Refill : Less Than 3 Seconds General Appearance: No Apparent Distress, WD/WN HEENT: PERRL/EOMI, Pharynx Normal, Moist Mucous Membranes Neck: Full Range of Motion, Normal Inspection, Non Tender, Supple Respiratory: Chest Non Tender, Lungs Clear (DELIO, LLL, RLL), Normal Breath Sounds (DELIO, LLL, RLL), No Accessory Muscle Use, No Respiratory Distress, Crackles (RUL) Cardiovascular: Regular Rate, Rhythm, No Edema, No Gallop, No JVD, No Murmur, Normal Peripheral Pulses Gastrointestinal: Normal Bowel Sounds, No Organomegaly, Non Tender, Soft Rectal: Deferred Back: Normal Inspection Extremity: Normal Capillary Refill, Normal Inspection, Normal Range of Motion, Non Tender, No Calf Tenderness, No Pedal Edema Neurologic/Psychiatric: Alert, Oriented x3, No Motor/Sensory Deficits, Normal Mood/Affect, physician assistant primary care II-XII Norm as Tested Skin: Normal Color, Warm/Dry Results/Procedures Lab Laboratory Tests 04/25/21 12:00 04/25/21 18:15 04/26/21 00:05 04/26/21 04:55 Patient resulted labs reviewed. Imaging: Reviewed Imaging Report Assessment/Plan Assessment and Plan Assess & Plan/Chief Complaint Assessment: Supraventricular Tachycardia s/p Chemical & Electrical Cardioversion Paroxysmal Atrial Fibrillation Cardiomyopathy (HFrEF) Diabetic Ketoacidosis Primary Hypertension Acute Kidney Injury, Resolved Type 2 Diabetes Mellitus Pneumonia Hyponatremia Obesity Personal Hx of COVID-19 Plan: Cardiology consulted, appreciate recs Metoprolol 50mg PO BID Xarelto 20mg PO daily Lisinopril 10mg PO daily Aspirin 81mg PO daily Insulin drip - anion gap closed, awaiting normal bicarbonate to DC insulin ggt IV NS @ 50mL/hr K+ replacement per DKA protocol Philip Santos#3 Cr normalized PT/OT Diagnosis/Problems Diagnosis/Problems (1) Paroxysmal SVT (supraventricular tachycardia) Status: Acute (2) Paroxysmal atrial fibrillation Status: Acute (3) Diabetic ketoacidosis Status: Acute Qualifiers: Qualified Codes: E11.10 - Type 2 diabetes mellitus with ketoacidosis without coma (4) Bronchopneumonia Status: Acute (5) Type 2 diabetes mellitus with complication Status: Chronic (6) Cardiomyopathy (7) Acute kidney injury Status: Acute (8) Hyponatremia Status: Acute (9) Primary hypertension Status: Chronic (10) Obesity Status: Chronic Qualifiers: (11) Personal history of COVID-19 Status: Resolved ALYSHA MANCILLA DO 04/27/21 0548: Subjective Subjective/Events-last exam Pt is doing a lot better Bicarb is 15 Clinically improved Chest x-ray appears improved Elevated liver enzymes from fatty liver acute illness at bedside Objective Exam General Appearance: No Apparent Distress, WD/WN, Chronically ill, Obese Respiratory: Lungs Clear (DELIO, LLL, RLL), Normal Breath Sounds (DELIO, LLL, RLL) Cardiovascular: Regular Rate, Rhythm Neurologic/Psychiatric: Alert, Oriented x3, No Motor/Sensory Deficits, Normal Mood/Affect Assessment/Plan Assessment and Plan Assess & Plan/Chief Complaint Continue antibiotics Insulin drip Supportive care Monitor liver enzymes Supervisory-Addendum Brief Verification & Attestation Participated in pt care: history, MDM, physical Personally performed: exam, history, MDM, supervision of care Care discussed with: Medical Student Procedures: n/a Results interpretation: Verified all documentation Verification and Attestation of Medical Student E/M Service A medical student performed and documented this service in my presence. I reviewed and verified all information documented by the medical student and made modifications to such information, when appropriate. I personally performed the physical exam and medical decision making. Alysha Mancilla, Apr 27, 2021,05:48 JACKELYN COLEMAN Apr 26, 2021 10:46 ALYSHA MANCILLA DO Apr 27, 2021 05:48
--- NOTE | 2021-04-26 10:50 | Physical Therapy Evaluation ---
PT Evaluation-General Medical Diagnosis Admission Date Apr 24, 2021 at 15:28 Medical Diagnosis: SOA, multiple emboli Onset Date: Apr 24, 2021 Therapy Diagnosis Therapy Diagnosis: Gait deficit, strength deficit Precautions Precautions/Isolations: Fall Prevention, Standard Precautions Referral Physician: Dr. Mancilla Reason for Referral: Evaluation/Treatment Medical History Reviewed History: Yes Social History Home: Single Level Current Living Status: Spouse Entry Into Home: Stairs With Railing PT Steps Into Home: 3 Prior Prior Level of Function SCALE: Activities may be completed with or without assistive devices. 0-Hvhfdnikpt-qlyzauj completes the activity by him/herself with no assistance from a helper. 5-Set-up or Clean-up Assistance-helper sets up or cleans up; patient completes activity. [place] assists only prior to or following the activity. 4-Supervision or Touching Assistance-helper provides verbal cues and/or touching/steadying and/or contact guard assistance as patient completes activity. Assistance may be provided throughout the activity or intermittently. 3-Partial/Moderate Assistance-helper does LESS THAN HALF the effort. [place] lifts, holds or supports trunk or limbs, but provides less than half the effort. 2-Substantial/Maximal Assistance-helper does MORE THAN HALF the effort. [place] lifts or holds trunk or limbs and provides more than half the effort. 6-Inhligltd-criwze does ALL the effort. Patient does none of the effort to complete the activity. Or, the assistance of 2 or more helpers is required for the patient to complete the activity. If activity was not attempted, code reason: 7-Patient Refused. 9-Not Applicable-not attempted and the patient did not perform the activity before the current illness, exacerbation or injury. 10-Not Attempted due to Environmental Limitations-(lack of equipment, weather restraints, etc.). 88-Not Attempted due to Medical Conditions or Safety Concerns. Bed Mobility: 6 Transfers (B,C,W/C): 6 Gait: 6 Stairs: 6 Indoor Mobility (Ambulation): Independent Stairs: Independent Prior Devices Use: None PT Evaluation-Current Subjective Patient lying supine in bed upon PT arrival, agreeable to treatment. Rates pain currently at 0/10. Objective Patient Orientation: Person, Place, Time, Situation ROM/Strength ROM Lower Extremities WFLs Strength Lower Extremities 4-/5 bilaterally all planes Sensory Vision: Functional Hearing: Functional Sensation Right Lower Extremit: Impaired Sensation Left Lower Extremity: Impaired Sensation Lower Extremities Patient reports he has DPN and demonstrates no sensation to light touch in [place]. Transfers Roll Left to Right (QC): 3 Sit to Lying (QC): 3 Lying to Sitting/Side of Bed(Q: 3 Sit to Stand (QC): 3 Chair/Peq-hn-Zenzj Xfer(QC): 3 Gait Does the Patient Walk?: Yes Mode of Locomotion: Walk Anticipated Mode of Locomotion: Walk Distance: 4 feet Gait Assistive Device: None Comments/Gait Description Patient may benefit short term from use of FWW to increase gait Balance Sitting Static: Fair Sitting Dynamic: Fair Standing Static: Poor Standing Dynamic: Poor Assessment/Needs Patient tolerated PT evaluation well. He currently has 2 IV's, Rectal tube, Collins, 1 L O2. He performs all observed bed mobility and transfers with min A. Patient rectal tube leaking upon initial attempt to transfer. Nurse notified. Patient is able to stand with min A, with PT while nurse cleans patient and observes rectal tube. Patient is able to ambulate ~ 4 feet with min A from PT to the chair. While in the chair patient performs AP, QS, GS x 20 and LAQ, Hamstring curls and hip add with pillow x 10 each LE. Patient in chair post treatment with all needs met, nursing notified, call light in hand. Rehab Potential: Good PT Technical Sourcing Recruiter Goals Technical Sourcing Recruiter Goals PT Prison Goals Time Frame: May 09, 2021 Roll Left & Right (QC): 6 Sit to Lying (QC): 6 Lying-Sitting on Side/Bed(QC): 6 Sit to Stand (QC): 6 Chair/Afx-uf-Oeoaj Xfer(QC): 6 Toilet Transfer (QC): 6 Does the Patient Walk: Yes Walk 10 feet (QC): 4 Walk 50ft with 2 Turns (QC): 4 Walk 150 ft (QC): 4 1 Step (curb) (QC): 4 4 Steps (QC): 4 12 Steps (QC): 4 PT Plan Problem List Problem List: Activity Tolerance, Functional Strength, Safety, Balance, Gait, Transfer, Bed Mobility, ROM Treatment/Plan Treatment Plan: Continue Plan of Care Treatment Plan: Bed Mobility, Education, Functional Activity [place], Functional Strength, Group Therapy, Gait, Safety, Therapeutic Exercise, Transfers Treatment Duration: Jun 03, 2021 Frequency: 6 times per week Estimated Hrs Per Day: .25 hour per day Patient and/or Family Agrees t: Yes Safety Risks/Education Patient Education: Gait Training, Transfer Techniques Teaching Recipient: Patient Teaching Methods: Demonstration Response to Teaching: Verbalize Understanding, Return Demonstration Time/GCodes Time In: 950 Time Out: 1020 Total Billed Treatment Time: 30 Total Billed Treatment Visit, Lexa MCCANN JOHN A PT Apr 26, 2021 10:50
--- NOTE | 2021-04-26 10:54 | Progress Note ---
ALEJANDRA CAVAZOS MED STUDENT 04/26/21 1054: Subjective Date Seen by a Provider: Apr 26, 2021 Time Seen by a Provider: 08:20 Subjective/Events-last exam From pts perspective - feeling 'a lot' better today - pt very conversational and in high spirits. 60 lasix given yesterday pm - has had over 5L of urine out since - CXR this am shows improvement in infiltrate. AST/ALT/alk-phos up today - pt denies any abd pain, newonset N/Ving. Per chart review pt is noted to have 13 episodes of diarrhea yesterday. Pt otherwise denies any new complaints such as chest pain, lightheadness, or headache. Review of Systems General: No Chills, No Night Sweats HEENT: No Head Aches, No Visual Changes Pulmonary: No Dyspnea, No Cough, No Pleuritic Chest Pain Cardiovascular: No: Chest Pain, Paroxysmal Noc. Dyspnea, Lt Headedness Gastrointestinal: Diarrhea; No: Nausea, Vomiting, Abdominal Pain, Constipation Neurological: No: Change in speech, Confusion Focused Exam Time of Focused Exam: 09:00 Objective Exam Last Set of Vital Signs Vital Signs Date Time Temp Pulse Resp B/P (MAP) Pulse Ox O2 Delivery O2 Flow Rate FiO2 04/26/21 10:00 87 12 153/86 98 Nasal Cannula 1.00 04/26/21 08:00 36.4 04/24/21 12:49 28 Capillary Refill : Less Than 3 Seconds I&O Intake and Output 04/26/21 00:00 Intake Total 8061.6 ml Output Total 5325 ml Balance 2736.6 ml Intake Oral 850 ml IV Total 7211.6 ml Output Urine Total 5325 ml # Bowel Movements 13 General: Alert, Oriented X3, Cooperative, No Acute Distress HEENT: Atraumatic, EOMI, Mucous Memb Moist/[place] Lungs: Clear to Auscultation, Normal Air Movement Heart: No Murmurs, Other (regular rate ) Abdomen: Normal Bowel Sounds, Soft, No Tenderness Extremities: No Clubbing, No Cyanosis Psych/Mental Status: Mental Status NL, Mood NL Results Lab Laboratory Tests 04/25/21 11:25: Glucometer 150H 04/25/21 12:00: Sodium Level 127L, Potassium Level 3.6, Chloride Level 102, Carbon Dioxide Level 16L, Anion Gap 9, Blood Urea Nitrogen 32H, Creatinine 1.45H, Estimat Glomerular Filtration Rate 56, BUN/Creatinine Ratio 22, Glucose Level 200H, Calcium Level 7.8L 04/25/21 12:58: Glucometer 196H 04/25/21 14:32: Glucometer 178H 04/25/21 16:17: Glucometer 144H 04/25/21 17:42: Glucometer 104 04/25/21 18:15: Sodium Level 130L, Potassium Level 3.7, Chloride Level 104, Carbon Dioxide Level 16L, Anion Gap 10, Blood Urea Nitrogen 27H, Creatinine 1.22, Estimat Glomerular Filtration Rate 69, BUN/Creatinine Ratio 22, Glucose Level 91, Calcium Level 8.0L 04/25/21 19:28: Glucometer 98 04/25/21 20:17: Glucometer 115H 04/25/21 21:02: Glucometer 113H 04/25/21 22:03: Glucometer 106 04/25/21 22:55: Glucometer 117H 04/26/21 00:05: Sodium Level 132L, Potassium Level 3.6, Chloride Level 106, Carbon Dioxide Level 15L, Anion Gap 11, Blood Urea Nitrogen 25H, Creatinine 1.14, Estimat Glomerular Filtration Rate 75, BUN/Creatinine Ratio 22, Glucose Level 114H, Calcium Level 8.2L 04/26/21 00:12: Glucometer 128H 04/26/21 01:03: Glucometer 111H 04/26/21 02:05: Glucometer 122H 04/26/21 02:55: Glucometer 106 04/26/21 03:52: Glucometer 115H 04/26/21 04:49: Glucometer 109 04/26/21 04:55: White Blood Count 9.3, Red Blood Count 4.50, Hemoglobin 12.4L, Hematocrit 37L, Mean Corpuscular Volume 81, Mean Corpuscular Hemoglobin 28, Mean Corpuscular Hemoglobin Concent 34, Red Cell Distribution Width 14.8H, Platelet Count 192, Mean Platelet Volume 10.4, Immature Granulocyte % (Auto) 6, Neutrophils (%) (Auto) 74, Lymphocytes (%) (Auto) 8L, Monocytes (%) (Auto) 12, Eosinophils (%) (Auto) 1, Basophils (%) (Auto) 0, Neutrophils # (Auto) 6.9, Lymphocytes # (Auto) 0.7L, Monocytes # (Auto) 1.1H, Eosinophils # (Auto) 0.1, Basophils # (Auto) 0.0, Immature Granulocyte # (Auto) 0.5H, Sodium Level 131L, Potassium Level 3.7, Chloride Level 106, Carbon Dioxide Level 15L, Anion Gap 10, Blood Urea Nitrogen 23H, Creatinine 1.08, Estimat Glomerular Filtration Rate 80, BUN/Creatinine Ratio 21, Glucose Level 118H, Calcium Level 8.3L, Corrected Calcium 9.3, Phosphorus Level 2.0L, Magnesium Level 1.8, Total Bilirubin 0.4, Aspartate Amino Transf (AST/SGOT) 123H, Alanine Aminotransferase (ALT/SGPT) 133H, Alkaline Phosphatase 232H, Total Protein 5.6L, Albumin 2.8L 04/26/21 05:58: Glucometer 120H 04/26/21 06:50: Glucometer 147H 04/26/21 07:50: Glucometer 118H 04/26/21 09:06: Glucometer 133H Microbiology 04/24/21 Blood Culture - Preliminary, Resulted No growth 04/24/21 Urine Culture - Final, Complete NO GROWTH 04/24/21 MRSA Screen - Final, Complete MRSA not isolated Assessment/Plan Assessment/Plan Assess & Plan/Chief Complaint DKA IDDM - very poorly controlled. Hyponatremia, improving. Appears DKA is 2/2 medication non-compliance (has not been taking home- insulin since CVD dx because he 'feels bad') Considering anion gap has remained closed for >24hrs, and pts developed freq diarrhea yesterday. Impression is that low bicarb is 2/2 diarrhea (or possibly pre-existing RTA given very poorly controlled T2DM) rather than DKA. Consider bridging off of insulin drip. Diabetes education - HgA1c 13.1. Acute diarrhea Non-anion gap Metabolic acidosis. Started yesterday - while in hospital on IV ABs. Ordered C. diff, stool culture, stool WBCs for workup. Elevated transaminits. this am: 123/133/232 (AST/ALT/alk-phos) Etiology: Drug-induced (Amiodarone drip on yesterday) Vs Biliary slug or Cholecystitis. More of a cholestatic pattern of injury Vs hepatic is concerning for bililary etiology... RUQ u/s ordered - though I feel most likely from amiodarone. SVT Paroxysmal Afib s/p cardioversion, amiodarone drip, cardizem drip. Cardiology following, treating with: metoprolol succinate and xarelto. 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 Cards following - appreciate recommendations. Per Cards - started on guideline directed med therapy - lisinopril added today. Since new onset - ischemic workup as outpt? Dense consolidation with air bronchograms involving the RUL and LLL lung regions s/p COVID-19 in March As per 04/24 chest/abd CT findings 04/26 CXR shows improvement in infiltrate. Zosyn (day 3) Recommend outpt f/u CT of chest in 1mo to confirm resolution. HTN HLP Obesity Debility Cardiac RF workup with TSH, HgA1c, and lipid panel LDLs in low 50s, TSH WNL. HgA1c 13.1 - this and weight are primary concerns for pts senior care health. Needs counseling on follow-up visit. PT/OT Prerenal ELMA, resolved. Continue to monitor volume status and kidney function given diarrhea and starting lisinopril. GI ppx: start 20 pepcid DVT ppx: ELIECER Ramires MD 04/29/21 1844: Supervisory-Addendum Brief Verification & Attestation Participated in pt care: history, MDM, physical Personally performed: exam, history, MDM, supervision of care Care discussed with: Medical Student Procedures: n/a Results interpretation: Verified all documentation A medical student performed and documented this service. I reviewed information documented by the medical student . Medical student performed patients physical exam . Medical decision making was done during tele-rounds with this medical student and a bedside RN . Please see my notes for details /clarification of assessment and plans ALEJANDRA CAVAZOS MED STUDENT Apr 26, 2021 10:54 ELIECER MORIN MD Apr 29, 2021 18:44
--- NOTE | 2021-04-26 11:17 | Occupational Therapy Eval ---
OT Evaluation-General/PLF Medical Diagnosis Admission Date Apr 24, 2021 at 15:28 Medical Diagnosis: SOA, multiple emboli Onset Date: Apr 24, 2021 Therapy Diagnosis Therapy Diagnosis: n/a Precautions Precautions/Isolations: Fall Prevention, Standard Precautions Referral Physician: Dr. Mancilla Referral Reason: Evaluation/Treatment Medical History Additional Medical History HTN, hyperlipidemia, DM, COVID-19 (Mar 2021) Current History ED with increased fatigue, found to be in SVT with rate 240, cardioverted. Social History Home: Single Level Current Living Status: Spouse Entry Into Home: Stairs With Railing Steps Into Home: 3 ADL-Prior Level of Function SCALE: Activities may be completed with or without assistive devices. 9-Zfyvixvmlb-vwvwczb completes the activity by him/herself with no assistance from a helper. 5-Set-up or Clean-up Assistance-helper sets up or cleans up; patient completes activity. [place] assists only prior to or following the activity. 4-Supervision or Touching Assistance-helper provides verbal cues and/or touching/steadying and/or contact guard assistance as patient completes activity. Assistance may be provided throughout the activity or intermittently. 3-Partial/Moderate Assistance-helper does LESS THAN HALF the effort. [place] lifts, holds or supports trunk or limbs, but provides less than half the effort. 2-Substantial/Maximal Assistance-helper does MORE THAN HALF the effort. [place] lifts or holds trunk or limbs and provides more than half the effort. 4-Kdfjphcle-xlszyh does ALL the effort. Patient does none of the effort to complete the activity. Or, the assistance of 2 or more helpers is required for the patient to complete the activity. If activity was not attempted, code reason: 7-Patient Refused. 9-Not Applicable-not attempted and the patient did not perform the activity before the current illness, exacerbation or injury. 10-Not Attempted due to Environmental Limitations-(lack of equipment, weather restraints, etc.). 88-Not Attempted due to Medical Conditions or Safety Concerns. ADL PLOF Comments Pt reports IND with ADLs and functional mobility, no AD/AE. 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 Pt feels like he is at baseline with his ADL performance. Mental Status/Objective Patient Orientation: Person, Place, Time, Situation Attachments: Collins Catheter (Catheter & rectal tube), IV, Oxygen (1L) Current Upper Extremity ROM WFL Upper Extremity Strength grossly 4/5 ADL-Treatment Eating (QC): 6 (IND per pt report, pt currently on liquid diet) Oral Hygiene (QC): 5 (Per clincial judgment) On/Off Footwear (QC): 6 (IND with gripper socks.) Other Treatments Pt up in recliner, agreeable to OT evaluation/tx. Pt provided information about PLOF and home set up, and participated in UE screen. Pt able to doff/don gripper socks independently, O2 saturation decreased to mid 80%'s but increased into 90%'s after a few seconds and cues for pursed lip breathing. In order to increase BUE strength, activity tolerance, and pulmonary function, pt completed x10 reps BUE shoulder flexion and front punch. OT encouraged pt to complete throughout the day and increase reps as tolerated. Pt indicates he is at his PLOF with ADLs, and doesn't want further OT services at this time. Post tx, pt in recliner, call light in reach and all needs met. Education OT Patient Education: Correct positioning, Energy conservation, Exercise program, Modified ADL techniques, Progress toward Goal/Update tx plan, Purpose of tx/functional activities Teaching Recipient: Patient Teaching Methods: Discussion Response to Teaching: Verbalize Understanding OT Snf Goals Production Engineer Goals 1=Demonstrate adherence to instructed precautions during ADL tasks. 2=Patient will verbalize/demonstrate understanding of assistive devices/modifications for ADL. 3=Patient will improve strength/tolerance for activity to enable patient to perform ADL's. OT Education/Plan Problem List/Assessment Assessment: No Skilled OT Needs ID'd No skilled OT services indicated at this time, as pt feels he is at his baseline and doesn't want further OT services. If further services are indicated, please send new orders and OT will complete a new evaluation. Discharge Recommendations Plan/Recommendations: Discharge/Goals Met Treatment Plan/Plan of Care Patient would benefit from OT for education, treatment and training to promote independence in ADL's, mobility, safety and/or upper extremity function for ADL's. Plan of Care: ADL Retraining, UE Funct Exercise/Act Treatment Duration: Apr 26, 2021 Frequency: 1 time per week (eval only) Estimated Hrs Per Day: .25 hour per day Rehab Potential: Good Time/GCodes Start Time: 10:47 Stop Time: 10:56 Total Time Billed (hr/min): 9 Billed Treatment Time 1, IVETH REED OT Apr 26, 2021 11:17
[2021-04-26 12:45] LABS: POTASSIUM 3.8 MMOL/L (3.6-5.0)
[2021-04-26 12:46] LABS: CALCIUM 8.4 MG/DL (8.5-10.1)
[2021-04-26 12:50] LABS: CREATININE SERUM 1.08 MG/DL (0.60-1.30)
[2021-04-26] MEDS: dilTIAZem DRIP PRE-MIX 125 ML IV SCH (13:30)
--- NOTE | 2021-04-26 13:36 | Diagnostic Imaging Report ---
PROCEDURE: US Hepatic (Liver). TECHNIQUE: Multiple real-time grayscale images were obtained over the right upper quadrant in various projections. INDICATION: Elevated liver function tests. COMPARISON: CT chest of 04/24/2021 FINDINGS: Liver has diffuse increased echogenicity indicative of hepatic steatosis. No focal hepatic lesion is appreciated. The liver is enlarged measuring 20 cm. Hepatic veins are patent with normal directional flow. Portal vein is patent with normal directional flow. The gallbladder is distended without gallstones, wall thickening, or pericholecystic fluid. The common bile duct measures up to 0.4 cm in diameter. No intrahepatic biliary dilation. Pancreas is obscured by overlying bowel gas. The right kidney is normal in size. No hydronephrosis, shadowing calculi, or suspicious mass lesion. IMPRESSION: 1. Hepatomegaly with diffuse hepatic steatosis. 2. No cholelithiasis or biliary obstruction. Dictated by: Dictated on workstation # [id number]
[2021-04-26] MEDS: RIVAROXABAN 20 MG TABLET (XARELTO) PO SCH (16:12)
[2021-04-26] MEDS: D5 1/2 NS W/KCL 20 MEQ/L 1,000 ML IV SCH (16:20)
[2021-04-26] MEDS: inSUlin ASPART (NovoLOG) 1 UNIT/0.01 ML (CHARGE PER UNIT) SC SCH (23:55)
[2021-04-27 00:04] VITALS: BP 153/86
[2021-04-27 05:13] LABS: BASOPHILS # (AUTO) 0.1 10^3/uL (0.0-0.1); BASOPHILS % (AUTO) 1 % (0-10); EOSINOPHILS # (AUTO) 0.2 10^3/uL (0.0-0.3); EOSINOPHILS % (AUTO) 2 % (0-10); HEMATOCRIT 39 % (40-54); HEMOGLOBIN 12.8 g/dL (13.3-17.7); LYMPHOCYTES # (AUTO) 0.7 10^3/uL (1.0-4.0); LYMPHOCYTES % (AUTO) 9 % (12-44); MEAN CORPUSCULAR HEMOGLOBIN 27 pg (25-34); MEAN CORPUSCULAR HGB CONC 33 g/dL (32-36); MEAN CORPUSCULAR VOLUME 83 fL (80-99); MEAN PLATELET VOLUME 9.9 fL (9.0-12.2); MONOCYTES # (AUTO) 0.9 10^3/uL (0.0-1.0); MONOCYTES % (AUTO) 11 % (0-12); NEUTROPHILS # (AUTO) 5.6 10^3/uL (1.8-7.8); NEUTROPHILS % (AUTO) 68 % (42-75); PLATELET COUNT 199 10^3/uL (130-400); WHITE BLOOD COUNT 8.3 10^3/uL (4.3-11.0)
[2021-04-27] MEDS: MAGNESIUM 1 GM/100 ML IVPB 100 ML IV SCH (05:28)
[2021-04-27] MEDS: KCL 20 MEQ TAB (K-DUR) PO SCH (05:28)
[2021-04-27] MEDS: POTASSIUM CL 10MEQ/50ML IVPB 50 ML IV SCH (05:28)
[2021-04-27 05:30] LABS: ALBUMIN 2.7 GM/DL (3.2-4.5); POTASSIUM 3.6 MMOL/L (3.6-5.0)
[2021-04-27 05:31] LABS: CALCIUM 8.4 MG/DL (8.5-10.1)
[2021-04-27 05:33] LABS: TOTAL PROTEIN 5.4 GM/DL (6.4-8.2)
[2021-04-27 05:34] LABS: BILIRUBIN,TOTAL 0.4 MG/DL (0.1-1.0)
[2021-04-27 05:36] LABS: CREATININE SERUM 1.04 MG/DL (0.60-1.30); PHOSPHORUS 2.8 MG/DL (2.3-4.7)
[2021-04-27 05:39] LABS: MAGNESIUM 1.7 MG/DL (1.6-2.4)
[2021-04-27] MEDS: inSUlin ASPART (NovoLOG) 1 UNIT/0.01 ML (CHARGE PER UNIT) SC SCH ×4 (05:45→23:51)
[2021-04-27] MEDS: PIPERACILLIN SODIUM/TAZOBACTAM 4.5 GM in NS (IVPB) 100 ML IV SCH ×3 (05:45→21:06)
[2021-04-27] MEDS: RT-ALBUTEROL SULF 2.5 MG/3 ML PRE-MIX VIAL INH SCH ×2 (08:01→22:05)
[2021-04-27] MEDS: lisINopril 10 MG (PRINIVIL) TABLET PO SCH (08:06)
[2021-04-27] MEDS: meTOproloL SUCCINATE 50 MG (TOPROL XL) TAB PO SCH (08:06)
[2021-04-27] MEDS: ASPIRIN E.C. 81 MG (ECOTRIN) TAB PO SCH (08:06)
--- NOTE | 2021-04-27 09:09 | Cardiology Progress Note ---
Progress Note-Cardiology Events since last exam Date Seen by Provider: Apr 27, 2021 Time Seen by Provider: 09:08 Events since last exam I am following him due to cardiomyopathy and atrial arrhythmias. He is now off the insulin infusion but remains in the intensive care unit. The plan is to transfer him to the medical floor later today. He denies chest discomfort, dyspnea, palpitations, or syncope. He has mild bilateral ankle edema. Certain portions of this document may have been dictated utilizing voice recognition technology. Inherent to this technology, typographical and grammatical errors may exist. As much as I am diligent to identify and correct these mistakes, some errors may remain in the document. Vitals Last set of Vitals Signs Vital Signs 04/27/21 04/27/21 04/27/21 00:04 11:11 13:00 Temp 37.0 Pulse 81 Resp 12 B/P (MAP) 146/76 Pulse Ox 98 O2 Delivery Nasal Cannula O2 Flow Rate 3.00 FiO2 28 Labs Labs Laboratory Tests 04/27/21 05:00 Exam Vital Signs Vital Signs Date Time Temp Pulse Resp B/P (MAP) Pulse Ox O2 Delivery O2 Flow Rate FiO2 04/27/21 13:00 81 12 146/76 98 Nasal Cannula 3.00 04/27/21 11:11 37.0 04/27/21 00:04 28 Physical Exam General: Alert. No acute distress. He is obese. Eye: No xanthelasma. HENT: Normocephalic. Neck: Jugular venous pressure does not appear elevated. Respiratory: Lungs are clear to auscultation. Respirations are non-labored. Breath sounds are equal. Symmetrical chest wall expansion. Cardiovascular: Normal rate. Regular rhythm. No murmur. No gallop. 1+ bilateral pretibial edema. Gastrointestinal: Soft. Normal bowel sounds. Skin: Warm. Dry. Neurologic: Alert and oriented to person, place, time. Cranial nerves 3-11 grossly intact. Psychiatric: Cooperative. Appropriate mood & affect. Labs Laboratory Tests Test 04/26/21 14:10 04/26/21 15:22 04/26/21 16:11 04/26/21 17:01 Range/Units Glucometer 177 H 160 H 159 H 143 H 70-110 MG/DL Test 04/26/21 17:56 04/26/21 18:40 04/26/21 23:24 04/27/21 05:00 Range/Units Glucometer 186 H 214 H 194 H 70-110 MG/DL White Blood Count 8.3 4.3-11.0 10^3/uL Red Blood Count 4.74 4.30-5.52 10^6/uL Hemoglobin 12.8 L 13.3-17.7 g/dL Hematocrit 39 L 40-54 % Mean Corpuscular Volume 83 80-99 fL Mean Corpuscular Hemoglobin 27 25-34 pg Mean Corpuscular Hemoglobin Concent 33 32-36 g/dL Red Cell Distribution Width 15.3 H 10.0-14.5 % Platelet Count 199 130-400 10^3/uL Mean Platelet Volume 9.9 9.0-12.2 fL Immature Granulocyte % (Auto) 10 % Neutrophils (%) (Auto) 68 42-75 % Lymphocytes (%) (Auto) 9 L 12-44 % Monocytes (%) (Auto) 11 0-12 % Eosinophils (%) (Auto) 2 0-10 % Basophils (%) (Auto) 1 0-10 % Neutrophils # (Auto) 5.6 1.8-7.8 10^3/uL Lymphocytes # (Auto) 0.7 L 1.0-4.0 10^3/uL Monocytes # (Auto) 0.9 0.0-1.0 10^3/uL Eosinophils # (Auto) 0.2 0.0-0.3 10^3/uL Basophils # (Auto) 0.1 0.0-0.1 10^3/uL Immature Granulocyte # (Auto) 0.8 H 0.0-0.1 10^3/uL Sodium Level 134 L 135-145 MMOL/L Potassium Level 3.6 3.6-5.0 MMOL/L Chloride Level 105 98-107 MMOL/L Carbon Dioxide Level 16 L 21-32 MMOL/L Anion Gap 13 5-14 MMOL/L Blood Urea Nitrogen 18 7-18 MG/DL Creatinine 1.04 0.60-1.30 MG/DL Estimat Glomerular Filtration Rate 83 BUN/Creatinine Ratio 17 Glucose Level 187 H 70-105 MG/DL Calcium Level 8.4 L 8.5-10.1 MG/DL Corrected Calcium 9.4 8.5-10.1 MG/DL Phosphorus Level 2.8 2.3-4.7 MG/DL Magnesium Level 1.7 1.6-2.4 MG/DL Total Bilirubin 0.4 0.1-1.0 MG/DL Aspartate Amino Transf (AST/SGOT) 37 H 5-34 U/L Alanine Aminotransferase (ALT/SGPT) 83 H 0-55 U/L Alkaline Phosphatase 161 H 40-136 U/L Total Protein 5.4 L 6.4-8.2 GM/DL Albumin 2.7 L 3.2-4.5 GM/DL Test 04/27/21 11:11 Range/Units Glucometer 198 H 70-110 MG/DL Diagnosis/Problems Diagnosis/Problems (1) Supraventricular tachycardia Assessment & Plan: He seems to be having a combination supraventricular tachycardia of unclear mechanism in addition to paroxysmal atrial fibrillation. He has been maintaining sinus rhythm on oral beta-vishal which should be continued. (2) Paroxysmal atrial fibrillation Status: Acute Assessment & Plan: In addition to supraventricular tachycardia, he also seems to be having some paroxysmal atrial fibrillation. I previously started him on intravenous amiodarone and he converted to sinus rhythm. I discontinued the amiodarone infusion after he received the first bag. He should continue metoprolol succinate. I recommend continuing rivaroxaban for stroke prophylaxis. I will hold off on giving him any other antiarrhythmic drugs at this time. I will hold his rivaroxaban this evening in anticipation of having him undergo a cardiac catheterization tomorrow. (3) Cardiomyopathy Assessment & Plan: This is a new finding in this patient. His ejection fraction was normal 1 year ago. Exact etiology of this decline is unclear. Tachycardia mediated cardiomyopathy is in the differential diagnosis as is ischemic heart disease. As above, I have started him on metoprolol succinate due to the atrial arrhythmias. I did order his lisinopril today which somehow did not get ordered on 04/25. Since his renal function has been stable for the past 3 days, I will plan on a cardiac catheterization tomorrow. Given the low ejection fraction, we may need to consider a LifeVest prior to discharge. (4) Primary hypertension Status: Chronic Assessment & Plan: As above, he has been started on metoprolol and lisinopril. (5) Acute kidney injury Status: Acute Assessment & Plan: His presenting GFR was consistent with stage III chronic kidney disease. I do not have any old results for comparison. This will need to be followed closely. His renal function has improved. (6) Type 2 diabetes mellitus with complication Status: Chronic Assessment & Plan: This is being managed by the hospitalist. His hemoglobin A1c was over 13 which is consistent with uncontrolled diabetes. He has underlying chronic kidney disease as noted above. Hopefully he can be transitioned off the insulin infusion in the near future. (7) Mass of upper lobe of right lung Assessment & Plan: Exact etiology unclear. This could be consistent with pneumonia. This will need to be followed up by his regular provider following discharge. He is currently receiving antibiotics. (8) Hyponatremia Status: Acute Assessment & Plan: Exact etiology unclear. This may be multifactorial some of which could be due to pseudohyponatremia from his elevated glucose level. The hospitalist and eICU are managing this. This has improved. (9) Obesity Status: Chronic Assessment & Plan: He needs to work on weight loss. (10) Personal history of COVID-19 Status: Resolved Assessment & Plan: Unclear whether or not this could have anything to do with his current clinical status. Problem Qualifiers (1) Obesity: Body mass index: BMI 35.0-35.9 BALTA CHRISTIE JR, MD Apr 27, 2021 09:09
--- NOTE | 2021-04-27 09:29 | Tele-ICU Progress Note ---
Subjective Date Seen by a Provider: Apr 27, 2021 Time Seen by a Provider: 08:45 Subjective/Events-last exam This virtual visit was conducted using real time audio/video. Thank you for asking us to see this patient admitted w SVT. Cardioversion 04/24. Also DKA, pna, UTI Recent events: Less diarrhea. Appears comfortable. VSS.NSR. 98% on RA. HEENT: No obvious masses, adenopathy or JVD. Chest: clear to auscultation. CV: RRR S1 S2 No murmur or added sounds. Abd: Non-tender. Bowel sounds Y. : Unremarkable. Collins Y. CINDER WORKER/psychiatric: Grossly intact. No obvious focal findings. Extremities: No edema. Capillary refill < 3 seconds. Skin: unremarkable. Results: Elevated BG 94. Decreased Na 134, Hb 12.8. CXR: Infilts improved.. Available chart/ vitals / labs / images reviewed. Video assessment done using teleICU camera, rest of exam as per RN. A/P: Critical Care: critically ill patient. Cont. PRN alb. Cont. Metop., Xarelto, Pepcid, Zosyn, Lisinopril, Detemir. Discussed with BELÉN Dorado.. Asked RN to reach out to eICU if any questions or concerns later. Time spent with patient/coordination of care with other health professionals (mins): 22. Sepsis Event Evaluation Height, Weight, BMI Height: '" Weight: lbs. oz. kg; 35.26 BMI Method: Focused Exam Time of Focused Exam: 09:00 Exam Exam Patient acknowledged, consented, and participated in this virtual visit which was conducted using real time audio/video Vital Signs Date Time Temp Pulse Resp B/P (MAP) Pulse Ox O2 Delivery O2 Flow Rate FiO2 04/27/21 09:00 84 26 147/71 97 Room Air 04/27/21 08:48 Room Air 04/27/21 08:11 98 Room Air 04/27/21 08:01 98 Nasal Cannula 2.00 04/27/21 08:00 81 19 142/71 98 Nasal Cannula 2.00 04/27/21 07:38 36.2 04/27/21 07:00 84 19 158/83 99 Nasal Cannula 2.00 04/27/21 07:00 77 04/27/21 06:00 92 17 162/81 97 Nasal Cannula 2.00 04/27/21 05:00 82 16 93/73 97 Nasal Cannula 2.00 04/27/21 04:00 85 28 149/82 99 Nasal Cannula 2.00 04/27/21 04:00 Room Air 04/27/21 03:00 91 19 141/83 98 Nasal Cannula 2.00 04/27/21 02:00 77 20 123/67 96 Nasal Cannula 2.00 04/27/21 01:00 91 22 122/77 96 Nasal Cannula 2.00 04/27/21 01:00 80 04/27/21 00:04 36.4 103 98 28 04/27/21 00:00 Room Air 04/27/21 00:00 84 33 123/69 95 Nasal Cannula 2.00 04/26/21 23:18 Nasal Cannula 2.00 04/26/21 23:00 92 26 120/65 94 Room Air 04/26/21 22:01 88 Room Air 04/26/21 22:00 79 31 133/71 97 Room Air 04/26/21 21:00 82 37 139/73 94 Room Air 04/26/21 20:30 Room Air 04/26/21 20:00 84 124/69 93 Nasal Cannula 1.00 04/26/21 20:00 Room Air 04/26/21 19:24 36.4 87 18 107/70 97 Nasal Cannula 1.00 04/26/21 19:00 86 04/26/21 18:00 86 20 138/97 96 Nasal Cannula 1.00 04/26/21 17:00 86 22 131/90 98 Nasal Cannula 1.00 04/26/21 16:21 Nasal Cannula 1.00 04/26/21 16:00 86 14 122/77 96 Nasal Cannula 1.00 04/26/21 15:24 36.3 04/26/21 15:00 81 13 119/73 98 Nasal Cannula 1.00 04/26/21 14:00 86 126/74 97 Nasal Cannula 1.00 04/26/21 13:00 88 19 98 Nasal Cannula 1.00 04/26/21 12:46 90 04/26/21 12:17 Nasal Cannula 1.00 04/26/21 12:00 84 15 137/95 98 Nasal Cannula 1.00 04/26/21 11:00 86 15 118/102 98 Nasal Cannula 1.00 04/26/21 10:00 87 12 153/86 98 Nasal Cannula 1.00 04/26/21 10:00 87 12 153/86 98 Nasal Cannula 1.00 04/26/21 09:59 98 Nasal Cannula 1.00 I & O 04/27/21 07:00 Intake Total 3460 ml Output Total 5050 ml Balance -1590 ml Height & Weight Height: '" Weight: lbs. oz. kg; 35.26 BMI Method: General Appearance: No Apparent Distress, WD/WN, Chronically ill, Obese HEENT: PERRL/EOMI, Pharynx Normal, Moist Mucous Membranes Neck: Full Range of Motion, Normal Inspection, Non Tender, Supple Respiratory: Lungs Clear, Normal Breath Sounds Cardiovascular: Regular Rate, Rhythm Capillary Refill: Less Than 3 Seconds Extremity: Normal Capillary Refill, Normal Inspection, Normal Range of Motion, Non Tender, No Calf Tenderness, No Pedal Edema Neurologic/Psychiatric: Alert, Oriented x3, No Motor/Sensory Deficits, Normal Mood/Affect Skin: Normal Color, Warm/Dry Lymphatic: No Adenopathy Results Lab Laboratory Tests 04/25/21 12:00 04/25/21 18:15 04/26/21 00:05 04/26/21 04:55 04/26/21 12:20 04/27/21 05:00 Assessment/Plan Assessment/Plan See free text. Critical Care: Critically Ill Patient ROQUE PAUL MD Apr 27, 2021 09:29
[2021-04-27] MEDS ORDERED: meTOproloL SUCCINATE 50 MG (TOPROL XL) TAB PO SCH (09:30)
[2021-04-27] MEDS ORDERED: INSULIN REGULAR IV SCH (10:45)
--- NOTE | 2021-04-27 11:41 | Progress Note - Hospitalist ---
JACKELYN COLEMAN 04/27/21 1141: Subjective HPI/CC On Admission Date Seen by Provider: Apr 27, 2021 Time Seen by Provider: 10:00 This is a 60-year-old white male who has a history of hypertension, hyperlipidemia, and type 2 diabetes. He had a recent Covid infection in March, I believe the of this year. He was beginning to recover until 24hr prior to presentation when he is noticed increased fatigue and racing heart. He presented to the emergency room in [place] and was found to be in SVT with a rate of 240. Adenosine and Cardizem IV were not helpful. As such, he was cardioverted with 100 J. At the time of initial interview in [place] he was in sinus rhythm but had intermittent short runs of SVT and probable atrial fibrillation. He appeared to be fatigued but denied having any chest pain. Subjective/Events-last exam Patient resting comfortably in bed. He endorses mild improvement in diarrhea overnight with initiation of FlexiSeal. He reports 4-5 episodes per day of chest tightening and shortness of breath that have been occuring for several months now. Patient reports cardiology is planning for a cardiac cath tomorrow to evaluate. He denies palpitations, shortness of breath, nausea, vomiting, and abdominal pain. Review of Systems General: No Chills, No Night Sweats HEENT: No Head Aches, No Visual Changes, No Eye Pain Pulmonary: No Dyspnea, No Cough Cardiovascular: No: Chest Pain, Palpitations, Orthopnea Gastrointestinal: Diarrhea (improving); No: Nausea, Vomiting, Abdominal Pain, Constipation Genitourinary: No Dysuria, No Frequency Musculoskeletal: No: leg pain, foot pain Neurological: No: Weakness, Numbness Focused Exam Sepsis Stage: Sepsis Possible Source: Pulmonary Time of Focused Exam: 09:00 Respiratory: Chest Non Tender, Lungs Clear (DELIO, LLL, RLL), Normal Breath Sounds (DELIO, LLL, RLL), No Accessory Muscle Use, No Respiratory Distress, Crackles (RUL) Cardiovascular: Regular Rate, Rhythm, No Edema, No Gallop, No JVD, No Murmur, Normal Peripheral Pulses Capillary Refill: Less Than 3 Seconds Skin: normal color, warm/dry Objective Exam Vital Signs Vital Signs Date Time Temp Pulse Resp B/P (MAP) Pulse Ox O2 Delivery O2 Flow Rate FiO2 04/27/21 11:00 78 23 137/80 99 Nasal Cannula 3.00 04/27/21 07:38 36.2 04/27/21 00:04 28 Capillary Refill : Less Than 3 Seconds General Appearance: No Apparent Distress, Obese HEENT: PERRL/EOMI, Pharynx Normal, Moist Mucous Membranes Neck: Full Range of Motion, Normal Inspection, Non Tender, Supple Respiratory: Chest Non Tender, Lungs Clear (DELIO, LLL, RLL), Normal Breath Sounds (DELIO, LLL, RLL), No Accessory Muscle Use, No Respiratory Distress, Crackles (RUL) Cardiovascular: Regular Rate, Rhythm, No Edema, No Gallop, No JVD, No Murmur, Normal Peripheral Pulses Gastrointestinal: Normal Bowel Sounds, No Organomegaly, Non Tender, Soft Rectal: Deferred Back: Normal Inspection Extremity: Normal Capillary Refill, Normal Inspection, Normal Range of Motion, Non Tender Neurologic/Psychiatric: Alert, Oriented x3, No Motor/Sensory Deficits, Normal Mood/Affect, field crew chief II-XII Norm as Tested Skin: Normal Color, Warm/Dry Lymphatic: No Adenopathy Results/Procedures Lab Laboratory Tests 04/26/21 12:20 04/27/21 05:00 Patient resulted labs reviewed. Imaging: Reviewed Imaging Report Assessment/Plan Assessment and Plan Assess & Plan/Chief Complaint Assessment: Supraventricular Tachycardia s/p Chemical & Electrical Cardioversion Paroxysmal Atrial Fibrillation Cardiomyopathy (HFrEF) Pneumonia Diabetic Ketoacidosis - improving Type 2 Diabetes Mellitus Acute Kidney Injury - resolved Primary Hypertension Hyponatremia - improving Obesity Personal Hx of COVID-19 Diarrhea - improving Anemia Plan: Cardiology consulted, appreciate recs Planning for cardiac catheterization on 04/28/21 Metoprolol, Xarelto, Lisinopril, Aspirin Levemir 20U BID + SSI Electrolyte replacement per protocol Zosyn D#4 PT/OT Diagnosis/Problems Diagnosis/Problems (1) Paroxysmal SVT (supraventricular tachycardia) Status: Acute (2) Paroxysmal atrial fibrillation Status: Acute (3) Bronchopneumonia Status: Acute (4) Diabetic ketoacidosis Status: Acute Qualifiers: Qualified Codes: E11.10 - Type 2 diabetes mellitus with ketoacidosis without coma (5) Type 2 diabetes mellitus with complication Status: Chronic (6) Cardiomyopathy (7) Acute kidney injury Status: Acute (8) Hyponatremia Status: Acute (9) Primary hypertension Status: Chronic (10) Obesity Status: Chronic Qualifiers: (11) Diarrhea (12) Anemia (13) Personal history of COVID-19 Status: Resolved ALYSHA MANCILLA DO 04/28/21 0520: Subjective Subjective/Events-last exam Pt is doing better Transition off insulin drip to Levemir Ultrasound shows steatosis Cardiac cath will be tomorrow due to angina type symptoms Appreciate Dr. Verdugo in eICU Review of Systems General: Fatigue Cardiovascular: Chest Pain Gastrointestinal: Abdominal Pain Objective Exam General Appearance: No Apparent Distress, WD/WN, Chronically ill, Obese Respiratory: Lungs Clear (DELIO, LLL, RLL), Normal Breath Sounds (DELIO, LLL, RLL), Crackles (RUL) Cardiovascular: Regular Rate, Rhythm Neurologic/Psychiatric: Alert, Oriented x3, No Motor/Sensory Deficits, Normal Mood/Affect Assessment/Plan Assessment and Plan Assess & Plan/Chief Complaint Cardiac cath tomorrow Antibiotics Supportive care Supervisory-Addendum Brief Verification & Attestation Participated in pt care: history, MDM, physical Personally performed: exam, history, MDM, supervision of care Care discussed with: Medical Student Procedures: n/a Results interpretation: Verified all documentation Verification and Attestation of Medical Student E/M Service A medical student performed and documented this service in my presence. I reviewed and verified all information documented by the medical student and made modifications to such information, when appropriate. I personally performed the physical exam and medical decision making. Alysha Mancilla, Apr 28, 2021,05:19 JACKELYN COLEMAN Apr 27, 2021 11:41 ALYSHA MANCILLA DO Apr 28, 2021 05:20
--- NOTE | 2021-04-27 13:24 | Physical Therapy Daily Note ---
PT Daily Note-Current Subjective Pt. declined Tx at first attempt stating he had just recieved a meal and wanted to attempt to eat. 2nd attempt pt. and present and agreeable with encouragement. Pt. does c/o he has had stomach upset and is very fatigued Pain Location: No Pain Reported Appearance flushed cheeks and face, Mental Status Patient Orientation: Normal For Age Attachments: Collins Catheter, Other-See Comments (many ) Transfers SCALE: Activities may be completed with or without assistive devices. 5-Utergpgniy-oapobvg completes the activity by him/herself with no assistance from a helper. 5-Set-up or Clean-up Assistance-helper sets up or cleans up; patient completes activity. [place] assists only prior to or following the activity. 4-Supervision or Touching Assistance-helper provides verbal cues and/or t ouching/steadying and/or contact guard assistance as patient completes activity. Assistance may be provided throughout the activity or intermittently. 3-Partial/Moderate Assistance-helper does LESS THAN HALF the effort. [place] lifts, holds or supports trunk or limbs, but provides less than half the effort. 2-Substantial/Maximal Assistance-helper does MORE THAN HALF the effort. [place] lifts or holds trunk or limbs and provides more than half the effort. 9-Mhhxhqmjx-irzkty does ALL the effort. Patient does none of the effort to complete the activity. Or, the assistance of 2 or more helpers is required for the patient to complete the activity. If activity was not attempted, code reason: 7-Patient Refused. 9-Not Applicable-not attempted and the patient did not perform the activity before the current illness, exacerbation or injury. 10-Not Attempted due to Environmental Limitations-(lack of equipment, weather restraints, etc.). 88-Not Attempted due to Medical Conditions or Safety Concerns. Roll Left & Right (QC): 5 Lying to Sitting/Side of Bed(Q: 5 Sit to Stand (QC): 5 Chair/Blu-db-Lexfj Xfer(QC): 5 Gait Training Does the Patient Walk?: Yes Gait Assistive Device: FWW side step left and right at bedside as pt is attached to many fairly short pertinent tubes, 5 ft x 4 CGA FWW this BAR EXAMINER protecting tubes etc Exercises Supine Ex: Quad Set, Rolling, Heel Slides, Straight leg raise, Hip abd/add Supine Reps: 12 Seated Therapy Exercises: Ankle pumps, Long arc quads, Hip flexion, Hip abd/add Seated Reps: 12 Treatments bed mob, TRFs, gait side steps, LE ex Assessment Current Status: Good Progress progress noted PT Group Home Goals Bi Tri Operator Goals PT Group Home Goals Time Frame: May 09, 2021 Roll Left & Right (QC): 6 Sit to Lying (QC): 6 Lying-Sitting on Side/Bed(QC): 6 Sit to Stand (QC): 6 Chair/Vcr-zx-Hxtge Xfer(QC): 6 Toilet Transfer (QC): 6 Does the Patient Walk: Yes Walk 10 feet (QC): 4 Walk 50ft with 2 Turns (QC): 4 Walk 150 ft (QC): 4 1 Step (curb) (QC): 4 4 Steps (QC): 4 12 Steps (QC): 4 PT Plan Treatment/Plan Treatment Plan: Continue Plan of Care Treatment Plan: Bed Mobility, Education, Functional Activity [place], Functional Strength, Group Therapy, Gait, Safety, Therapeutic Exercise, Transfers Treatment Duration: Jun 03, 2021 Frequency: 6 times per week Estimated Hrs Per Day: .25 hour per day Patient and/or Family Agrees t: Yes Safety Risks/Education Patient Education: Gait Training, Transfer Techniques, Correct Positioning, Disease Process, Safety Issues Teaching Recipient: Patient Teaching Methods: Demonstration, Discussion Response to Teaching: Verbalize Understanding, Return Demonstration, Reinforcement Needed Time/GCodes Time In: 1300 Time Out: 1320 Total Billed Treatment Time: 20 Total Billed Treatment 1,FA20m FAREED PATEL BAR EXAMINER Apr 27, 2021 13:24
[2021-04-27] MEDS: dilTIAZem DRIP PRE-MIX 125 ML IV SCH (14:32)
[2021-04-28 05:05] LABS: BASOPHILS # (AUTO) 0.1 10^3/uL (0.0-0.1); BASOPHILS % (AUTO) 1 % (0-10); EOSINOPHILS # (AUTO) 0.2 10^3/uL (0.0-0.3); EOSINOPHILS % (AUTO) 2 % (0-10); HEMATOCRIT 39 % (40-54); LYMPHOCYTES # (AUTO) 0.9 10^3/uL (1.0-4.0); LYMPHOCYTES % (AUTO) 8 % (12-44); MEAN CORPUSCULAR HEMOGLOBIN 28 pg (25-34); MEAN CORPUSCULAR HGB CONC 33 g/dL (32-36); MEAN CORPUSCULAR VOLUME 84 fL (80-99); MEAN PLATELET VOLUME 9.4 fL (9.0-12.2); MONOCYTES % (AUTO) 9 % (0-12); NEUTROPHILS # (AUTO) 7.4 10^3/uL (1.8-7.8); NEUTROPHILS % (AUTO) 71 % (42-75); PLATELET COUNT 212 10^3/uL (130-400); WHITE BLOOD COUNT 10.5 10^3/uL (4.3-11.0)
[2021-04-28 05:24] LABS: ALBUMIN 2.8 GM/DL (3.2-4.5); POTASSIUM 3.4 MMOL/L (3.6-5.0)
[2021-04-28 05:25] LABS: CALCIUM 8.7 MG/DL (8.5-10.1)
[2021-04-28 05:26] LABS: TOTAL PROTEIN 5.6 GM/DL (6.4-8.2)
[2021-04-28 05:28] LABS: BILIRUBIN,TOTAL 0.4 MG/DL (0.1-1.0)
[2021-04-28 05:29] LABS: PHOSPHORUS 3.9 MG/DL (2.3-4.7)
[2021-04-28 05:30] LABS: CREATININE SERUM 0.95 MG/DL (0.60-1.30)
[2021-04-28 05:33] LABS: MAGNESIUM 1.7 MG/DL (1.6-2.4)
[2021-04-28] MEDS: POTASSIUM CL 10MEQ/50ML IVPB 50 ML IV SCH ×3 (05:48→06:41)
[2021-04-28] MEDS: MAGNESIUM 1 GM/100 ML IVPB 100 ML IV SCH ×3 (05:48→06:41)
[2021-04-28] MEDS: inSUlin ASPART (NovoLOG) 1 UNIT/0.01 ML (CHARGE PER UNIT) SC SCH ×4 (05:49→20:33)
[2021-04-28] MEDS: KCL 20 MEQ TAB (K-DUR) PO SCH (05:49)
--- NOTE | 2021-04-28 05:53 | Progress Note - Hospitalist ---
Subjective HPI/CC On Admission Date Seen by Provider: Apr 28, 2021 Time Seen by Provider: 10:30 This is a 60-year-old white male who has a history of hypertension, hyperlipidemia, and type 2 diabetes. He had a recent Covid infection in March, I believe the of this year. He was beginning to recover until 24hr prior to presentation when he is noticed increased fatigue and racing heart. He presented to the emergency room in [place] and was found to be in SVT with a rate of 240. Adenosine and Cardizem IV were not helpful. As such, he was cardioverted with 100 J. At the time of initial interview in [place] he was in sinus rhythm but had intermittent short runs of SVT and probable atrial fibrillation. He appeared to be fatigued but denied having any chest pain. Subjective/Events-last exam Pt had a cardiac cath today showing cardiomyopathy but ejection fraction is 35% so doesn't need a life vest Transferring to 4th floor PT and OT ordered Discontinue catheter Review of Systems General: Fatigue, Malaise Pulmonary: Dyspnea Focused Exam Time of Focused Exam: 09:00 Objective Exam Vital Signs Vital Signs Date Time Temp Pulse Resp B/P (MAP) Pulse Ox O2 Delivery O2 Flow Rate FiO2 04/29/21 04:00 36.2 64 20 144/67 95 Room Air 04/28/21 21:19 2.00 04/27/21 00:04 28 Capillary Refill : Less Than 3 Seconds General Appearance: No Apparent Distress, WD/WN, Chronically ill, Obese Respiratory: No Accessory Muscle Use, No Respiratory Distress, Crackles, Decreased Breath Sounds Cardiovascular: Regular Rate, Rhythm Neurologic/Psychiatric: Alert, Oriented x3, No Motor/Sensory Deficits, Normal Mood/Affect Results/Procedures Lab Patient resulted labs reviewed. Imaging: Reviewed Imaging Report Assessment/Plan Assessment and Plan Assess & Plan/Chief Complaint Assessment: Supraventricular Tachycardia s/p Chemical & Electrical Cardioversion Paroxysmal Atrial Fibrillation Cardiomyopathy (HFrEF) Pneumonia Diabetic Ketoacidosis - improving Type 2 Diabetes Mellitus Acute Kidney Injury - resolved Primary Hypertension Hyponatremia - improving Obesity Personal Hx of COVID-19 Diarrhea - improving Anemia Plan: Transfer to fourth floor Insulin Antibiotics PT and OT Critical Care Critically Ill Patient ANTONIOKAYLAN MCKINNON Apr 28, 2021 05:53
[2021-04-28] MEDS: PIPERACILLIN SODIUM/TAZOBACTAM 4.5 GM in NS (IVPB) 100 ML IV SCH ×3 (06:00→20:32)
[2021-04-28] MEDS ORDERED: LIDOCAINE 1% INJ 20 ML VIAL ONE (06:53)
[2021-04-28] MEDS ORDERED: HEParin (CATH LAB) 2,000 ML IV ONE (06:54)
[2021-04-28] MEDS ORDERED: VERAPAMIL 5 MG/2 ML (CALAN) VIAL IV ONE (07:39)
[2021-04-28] MEDS ORDERED: fentaNYL INJ 100 MCG/2 ML AMP ONE (07:40)
[2021-04-28] MEDS ORDERED: MIDAZOLAM 5 MG/5 ML (VERSED) VIAL ONE (07:40)
[2021-04-28] MEDS ORDERED: NITRO DRIP 25000 MCG/D5W 250 ML IV ONE (07:41)
[2021-04-28] MEDS ORDERED: HEParin 1000 UNIT/ML (10ML VIAL) FOR BOLUS ONE (07:41)
[2021-04-28] MEDS: RT-ALBUTEROL SULF 2.5 MG/3 ML PRE-MIX VIAL INH SCH ×2 (07:45→19:28)
--- NOTE | 2021-04-28 07:54 | Pre-Op Note & Conscious Sedat ---
Pre-Operative Progress Note H&P Reviewed The H&P was reviewed, patient examined and no changes noted. Date H&P Reviewed: Apr 28, 2021 Time H&P Reviewed: 07:52 Pre-Op Diagnosis: Cardiomyopathy Conscious Sedation Pre-Proced ASA Score 2 For ASA 3 and 4: Consider anesthesia and medical clearance. Also, for patients with a history of failed moderate sedation consider anesthesia. Airway Lungs Heart ASA score ASA 1: a normal healthy patient ASA 2: a patient with a mild systemic disease (mid diabetes, controlled hypertension, obesity ASA 3: a patient with a severe systemic disease that limits activity (angina, COPD, prior Myocardial infarction) ASA 4: a patient with an incapacitating disease that is a constant threat to life (CHF, renal failure) ASA 5: a moribund patient not expected to survive 24 hrs. (ruptured aneurysm) ASA 6: a declared brain- patient whose organs are being harvested. For emergent operations, add the letter E after the classification Mallampati Classification Grade 3 Sedation Plan Analgesia, Amnesia, Plan communicated to team members, Discussed options with patient/fam, Discussed risks with patient/fam The patient is an appropriate candidate to undergo the planned procedure, sedation, and anesthesia. The patient immediately re-assessed prior to indication. BALTA CHRISTIE JR, MD Apr 28, 2021 07:54
[2021-04-28] MEDS ORDERED: NS IV 1000 ML 1,000 ML IV ONE (08:00)
[2021-04-28] MEDS ORDERED: NS IV 1000 ML 1,000 ML IV SCH (09:00)
[2021-04-28] MEDS ORDERED: PATIENT MAY USE OWN MEDS, ALL PO SCH (09:00)
[2021-04-28] MEDS: meTOproloL SUCCINATE 50 MG (TOPROL XL) TAB PO SCH (09:16)
[2021-04-28] MEDS: ASPIRIN E.C. 81 MG (ECOTRIN) TAB PO SCH (09:16)
[2021-04-28] MEDS: lisINopril 10 MG (PRINIVIL) TABLET PO SCH (09:16)
--- NOTE | 2021-04-28 09:16 | Cardiac Cath Report ---
CARDIAC CATHETERIZATION DATE OF PROCEDURE: 04/28/2021 INDICATION: Cardiomyopathy. HISTORY: The patient is a 60 year old male with no previously known cardiac disease who presented to the hospital with palpitations and chest tightness. He was found to have supraventricular tachycardia as well as paroxysmal atrial fibrillation. He converted to sinus rhythm with intravenous amiodarone which was then discontinued. He underwent an echocardiogram that showed moderate left ventricular systolic dysfunction with an estimated ejection fraction of 30-35%. Therefore, he is now referred for further evaluation with a cardiac catheterization. PROCEDURES PERFORMED: 1. Left heart catheterization with hemodynamic measurements. 2. Diagnostic [place] coronary angiography. PROCEDURE DESCRIPTION: After informed consent and in the fasting state, left heart catheterization was performed through the right radial artery utilizing a 6 Italian system by percutaneous approach. Standard 5 Italian Hugh catheters were utilized for the diagnostic portion of the procedure. All catheters were exchanged over a guidewire. Following the procedure, a vascular band was applied to the radial artery access site and the sheath was removed with good hemostasis. RESULTS: HEMODYNAMICS: The aortic pressure was 137/60 mmHg. The left ventricular pressure was 147/0 mmHg with a left ventricular end-diastolic pressure of 12 mmHg. There was no significant pressure gradient upon pullback across aortic valve. CORONARY ANGIOGRAPHY: Left main coronary artery: Free of significant disease. Left anterior descending coronary artery: Free of significant disease. Left circumflex coronary artery: Dominant and free of significant disease. Ramus intermedius: There was a ramus intermedius branch which was free of significant disease. Right coronary artery: Nondominant and free of significant disease. IMPRESSION: 1. Normal left heart pressures. 2. Angiographically normal-appearing coronary arteries in a left dominant system. The patient also has a ramus intermedius branch which is a common variant present in approximately 20% of people. 3. The patient has moderate left ventricular systolic dysfunction with an estimated ejection fraction of 35-40% by echocardiogram obtained on 04/25/2021. Certain portions of this document may have been dictated utilizing voice recognition technology. Inherent to this technology, typographical and grammatical errors may exist. As much as I am diligent to identify and correct these mistakes, some errors may remain in the document. BALTA CHRISTIE JR, MD Apr 28, 2021 09:16
--- NOTE | 2021-04-28 11:54 | Physical Therapy Daily Note ---
PT Daily Note-Current Subjective Patient in recliner pre tx, agrees to PT, has no complaints of pain Appearance Patient in recliner post tx with nurse call, phone, tray, all needs met. Mental Status Patient Orientation: Person, Place, Situation Attachments: Collins Catheter, IV Transfers SCALE: Activities may be completed with or without assistive devices. 0-Ojxtllfshx-koilpuz completes the activity by him/herself with no assistance from a helper. 5-Set-up or Clean-up Assistance-helper sets up or cleans up; patient completes activity. [place] assists only prior to or following the activity. 4-Supervision or Touching Assistance-helper provides verbal cues and/or touching/steadying and/or contact guard assistance as patient completes activi ty. Assistance may be provided throughout the activity or intermittently. 3-Partial/Moderate Assistance-helper does LESS THAN HALF the effort. [place] lifts, holds or supports trunk or limbs, but provides less than half the effort. 2-Substantial/Maximal Assistance-helper does MORE THAN HALF the effort. [place] lifts or holds trunk or limbs and provides more than half the effort. 7-Srajgbtvc-fejgku does ALL the effort. Patient does none of the effort to complete the activity. Or, the assistance of 2 or more helpers is required for the patient to complete the activity. If activity was not attempted, code reason: 7-Patient Refused. 9-Not Applicable-not attempted and the patient did not perform the activity before the current illness, exacerbation or injury. 10-Not Attempted due to Environmental Limitations-(lack of equipment, weather restraints, etc.). 88-Not Attempted due to Medical Conditions or Safety Concerns. Sit to Stand (QC): 4 Chair/Hrv-aw-Btoxe Xfer(QC): 4 Gait Training Distance: 80' Walk 10 feet (QC): 4 Walk 50 ft with 2 Turns(QC): 4 Gait Assistive Device: FWW Patient ambulates back and forth in his room for about 80', he is slightly unsteady mostly with turning but no complete LOB Exercises Seated Therapy Exercises: Ankle pumps, Long arc quads Seated Reps: 20 Treatments transfers, ambulation, LE strengthening Assessment Current Status: Fair Progress improving endurance, O2 was 92% after ambulation PT Long-Term Goals Shift Mgr Goals PT Shift Mgr Goals Time Frame: May 09, 2021 Roll Left & Right (QC): 6 Sit to Lying (QC): 6 Lying-Sitting on Side/Bed(QC): 6 Sit to Stand (QC): 6 Chair/Jdm-xk-Rxsek Xfer(QC): 6 Toilet Transfer (QC): 6 Does the Patient Walk: Yes Walk 10 feet (QC): 4 Walk 50ft with 2 Turns (QC): 4 Walk 150 ft (QC): 4 1 Step (curb) (QC): 4 4 Steps (QC): 4 12 Steps (QC): 4 PT Plan Problem List Problem List: Activity Tolerance, Functional Strength, Safety, Balance, Gait, Transfer, Bed Mobility, ROM Treatment/Plan Treatment Plan: Continue Plan of Care Treatment Plan: Bed Mobility, Education, Functional Activity [place], Functional Strength, Group Therapy, Gait, Safety, Therapeutic Exercise, Transfers Treatment Duration: Jun 03, 2021 Frequency: 6 times per week Estimated Hrs Per Day: .25 hour per day Patient and/or Family Agrees t: Yes Safety Risks/Education Patient Education: Gait Training, Transfer Techniques, Correct Positioning, Safety Issues Teaching Recipient: Patient Teaching Methods: Demonstration, Discussion Response to Teaching: Reinforcement Needed Time/GCodes Time In: 1120 Time Out: 1133 Total Billed Treatment Time: 13 Total Billed Treatment 1 visit FA HARJINDER LIAZRRAGA PT Apr 28, 2021 11:54
[2021-04-28] MEDS: RIVAROXABAN 20 MG TABLET (XARELTO) PO SCH (17:20)
[2021-04-28] MEDS ORDERED: NON-FORMULARY MEDICATION 1 EA EA (Cetirizine HCl 10 MG) PO SCH (21:00)
[2021-04-28] MEDS ORDERED: NON-FORMULARY MEDICATION 1 EA EA (Insulin Detemir (Levemir Flextouch) 50 UNIT) SQ SCH (21:00)
[2021-04-28] MEDS ORDERED: LORATADINE (CLARITIN) 10 MG TAB PO SCH (21:00)
[2021-04-28] MEDS ORDERED: SIMvastatin 20 MG (ZOCOR) TAB PO SCH (21:00)
[2021-04-28] MEDS ORDERED: OMEGA 3 (FISH OIL) 1000 MG CAP PO SCH (21:00)
[2021-04-28] MEDS ORDERED: NON-FORMULARY MEDICATION 1 EA EA (Pravastatin Sodium 40 MG) PO SCH (21:00)
[2021-04-29] MEDS: PIPERACILLIN SODIUM/TAZOBACTAM 4.5 GM in NS (IVPB) 100 ML IV SCH (05:44)
[2021-04-29] MEDS: inSUlin ASPART (NovoLOG) 1 UNIT/0.01 ML (CHARGE PER UNIT) SC SCH ×2 (05:44→11:05)
[2021-04-29 05:45] LABS: BASOPHILS % (AUTO) 0 % (0-10); EOSINOPHILS # (AUTO) 0.2 10^3/uL (0.0-0.3); EOSINOPHILS % (AUTO) 2 % (0-10); HEMATOCRIT 39 % (40-54); HEMOGLOBIN 12.6 g/dL (13.3-17.7); LYMPHOCYTES % (AUTO) 8 % (12-44); MEAN CORPUSCULAR HEMOGLOBIN 27 pg (25-34); MEAN CORPUSCULAR HGB CONC 33 g/dL (32-36); MEAN CORPUSCULAR VOLUME 84 fL (80-99); MEAN PLATELET VOLUME 9.6 fL (9.0-12.2); MONOCYTES # (AUTO) 0.8 10^3/uL (0.0-1.0); MONOCYTES % (AUTO) 7 % (0-12); NEUTROPHILS # (AUTO) 9.2 10^3/uL (1.8-7.8); NEUTROPHILS % (AUTO) 76 % (42-75); PLATELET COUNT 253 10^3/uL (130-400); WHITE BLOOD COUNT 12.1 10^3/uL (4.3-11.0)
[2021-04-29 06:02] LABS: ALBUMIN 2.8 GM/DL (3.2-4.5); POTASSIUM 3.1 MMOL/L (3.6-5.0)
[2021-04-29 06:03] LABS: CALCIUM 8.5 MG/DL (8.5-10.1)
[2021-04-29 06:04] LABS: TOTAL PROTEIN 5.9 GM/DL (6.4-8.2)
--- NOTE | 2021-04-29 06:04 | Progress Note - Hospitalist ---
Subjective HPI/CC On Admission Date Seen by Provider: Apr 29, 2021 Time Seen by Provider: 11:00 This is a 60-year-old white male who has a history of hypertension, hyperlipidemia, and type 2 diabetes. He had a recent Covid infection in March, I believe the of this year. He was beginning to recover until 24hr prior to presentation when he is noticed increased fatigue and racing heart. He presented to the emergency room in [place] and was found to be in SVT with a rate of 240. Adenosine and Cardizem IV were not helpful. As such, he was cardioverted with 100 J. At the time of initial interview in [place] he was in sinus rhythm but had intermittent short runs of SVT and probable atrial fibrillation. He appeared to be fatigued but denied having any chest pain. Subjective/Events-last exam Ready for discharge Focused Exam Time of Focused Exam: 09:00 Objective Exam Vital Signs Vital Signs Date Time Temp Pulse Resp B/P (MAP) Pulse Ox O2 Delivery O2 Flow Rate FiO2 04/29/21 13:17 36.7 66 18 146/67 97 Room Air 0.00 04/27/21 00:04 28 Capillary Refill : Less Than 3 Seconds General Appearance: No Apparent Distress, WD/WN, Chronically ill, Obese Respiratory: Lungs Clear, Normal Breath Sounds Results/Procedures Lab Laboratory Tests 04/29/21 05:36 Patient resulted labs reviewed. Imaging: Reviewed Imaging Report Assessment/Plan Assessment and Plan Assess & Plan/Chief Complaint Assessment: Supraventricular Tachycardia s/p Chemical & Electrical Cardioversion Paroxysmal Atrial Fibrillation Cardiomyopathy (HFrEF) Pneumonia Diabetic Ketoacidosis - improving Type 2 Diabetes Mellitus Acute Kidney Injury - resolved Primary Hypertension Hyponatremia - improving Obesity Personal Hx of COVID-19 Diarrhea - improving Anemia Plan: Transfer to fourth floor Insulin Antibiotics PT and OT 04/29/2021: Discharge plan Critical Care Critically Ill Patient ANTONIOKAYLAN MCKINNON Apr 29, 2021 06:04
[2021-04-29 06:06] LABS: BILIRUBIN,TOTAL 0.4 MG/DL (0.1-1.0)
[2021-04-29 06:08] LABS: CREATININE SERUM 0.84 MG/DL (0.60-1.30)
[2021-04-29 06:11] LABS: MAGNESIUM 1.6 MG/DL (1.6-2.4)
[2021-04-29] MEDS ORDERED: MULTIVIT W/MINERALS TAB (THERAGRAN M) PO SCH (07:00)
--- NOTE | 2021-04-29 07:17 | Diagnostic Imaging Report ---
INDICATION: Pneumonia COMPARISON: 04/26/2021 FINDINGS: Single view of the chest demonstrates persistent but slightly decreased upper lung zone infiltrate. Lung volumes remain low. The heart is enlarged without pulmonary edema. There is no pneumothorax or effusion. IMPRESSION: Slightly improved aeration. Dictated by: Dictated on workstation # [id number]
[2021-04-29] MEDS: ASPIRIN E.C. 81 MG (ECOTRIN) TAB PO SCH (08:30)
[2021-04-29] MEDS: lisINopril 10 MG (PRINIVIL) TABLET PO SCH (08:31)
[2021-04-29] MEDS: meTOproloL SUCCINATE 50 MG (TOPROL XL) TAB PO SCH (08:31)
--- NOTE | 2021-04-29 08:44 | Cardiology Progress Note ---
Progress Note-Cardiology Events since last exam Date Seen by Provider: Apr 29, 2021 Time Seen by Provider: 08:43 Events since last exam I am following him due to atrial fibrillation and cardiomyopathy. He is now on the medical floor. He was sitting up in a chair. He denies chest pain, dyspnea at rest, palpitations, or syncope. He has persistent, mild ankle edema which he has had in the past prior to admission. Certain portions of this document may have been dictated utilizing voice recognition technology. Inherent to this technology, typographical and grammatical errors may exist. As much as I am diligent to identify and correct these mistakes, some errors may remain in the document. Vitals Last set of Vitals Signs Vital Signs 04/27/21 04/28/21 04/29/21 04/29/21 00:04 21:19 07:40 08:37 Temp 36.5 Pulse 60 Resp 20 B/P (MAP) 155/77 Pulse Ox 96 O2 Delivery Room Air O2 Flow Rate 2.00 FiO2 28 Labs Labs Laboratory Tests 04/29/21 05:36 Exam Vital Signs Vital Signs Date Time Temp Pulse Resp B/P (MAP) Pulse Ox O2 Delivery O2 Flow Rate FiO2 04/29/21 08:37 Room Air 04/29/21 07:40 36.5 60 20 155/77 96 04/28/21 21:19 2.00 04/27/21 00:04 28 Physical Exam General: Alert. No acute distress. He is obese. Eye: No xanthelasma. HENT: Normocephalic. Neck: Jugular venous pressure does not appear elevated. Respiratory: Lungs are clear to auscultation. Respirations are non-labored. Breath sounds are equal. Symmetrical chest wall expansion. Cardiovascular: Normal rate. Regular rhythm. No murmur. No gallop. 1+ bilateral pretibial edema. Gastrointestinal: Soft. Normal bowel sounds. Skin: Warm. Dry. Neurologic: Alert and oriented to person, place, time. Cranial nerves 3-11 grossly intact. Psychiatric: Cooperative. Appropriate mood & affect. Labs Laboratory Tests Test 04/28/21 16:01 04/28/21 20:13 04/29/21 05:14 04/29/21 05:36 Range/Units Glucometer 284 H 291 H 102 70-110 MG/DL White Blood Count 12.1 H 4.3-11.0 10^3/uL Red Blood Count 4.61 4.30-5.52 10^6/uL Hemoglobin 12.6 L 13.3-17.7 g/dL Hematocrit 39 L 40-54 % Mean Corpuscular Volume 84 80-99 fL Mean Corpuscular Hemoglobin 27 25-34 pg Mean Corpuscular Hemoglobin Concent 33 32-36 g/dL Red Cell Distribution Width 15.2 H 10.0-14.5 % Platelet Count 253 130-400 10^3/uL Mean Platelet Volume 9.6 9.0-12.2 fL Immature Granulocyte % (Auto) 8 % Neutrophils (%) (Auto) 76 H 42-75 % Lymphocytes (%) (Auto) 8 L 12-44 % Monocytes (%) (Auto) 7 0-12 % Eosinophils (%) (Auto) 2 0-10 % Basophils (%) (Auto) 0 0-10 % Neutrophils # (Auto) 9.2 H 1.8-7.8 10^3/uL Lymphocytes # (Auto) 1.0 1.0-4.0 10^3/uL Monocytes # (Auto) 0.8 0.0-1.0 10^3/uL Eosinophils # (Auto) 0.2 0.0-0.3 10^3/uL Basophils # (Auto) 0.0 0.0-0.1 10^3/uL Immature Granulocyte # (Auto) 0.9 H 0.0-0.1 10^3/uL Sodium Level 136 135-145 MMOL/L Potassium Level 3.1 L 3.6-5.0 MMOL/L Chloride Level 105 98-107 MMOL/L Carbon Dioxide Level 20 L 21-32 MMOL/L Anion Gap 11 5-14 MMOL/L Blood Urea Nitrogen 13 7-18 MG/DL Creatinine 0.84 0.60-1.30 MG/DL Estimat Glomerular Filtration Rate 101 BUN/Creatinine Ratio 15 Glucose Level 97 70-105 MG/DL Calcium Level 8.5 8.5-10.1 MG/DL Corrected Calcium 9.5 8.5-10.1 MG/DL Magnesium Level 1.6 1.6-2.4 MG/DL Total Bilirubin 0.4 0.1-1.0 MG/DL Aspartate Amino Transf (AST/SGOT) 24 5-34 U/L Alanine Aminotransferase (ALT/SGPT) 45 0-55 U/L Alkaline Phosphatase 126 40-136 U/L Total Protein 5.9 L 6.4-8.2 GM/DL Albumin 2.8 L 3.2-4.5 GM/DL Diagnosis/Problems Diagnosis/Problems (1) Paroxysmal atrial fibrillation Status: Acute Assessment & Plan: In addition to supraventricular tachycardia, he also seems to be having some paroxysmal atrial fibrillation. I previously started him on intravenous amiodarone and he converted to sinus rhythm. I discontinued the amiodarone infusion after he received the first bag. He should continue metoprolol succinate. I recommend continuing rivaroxaban for stroke prophylaxis. I will hold off on giving him any other antiarrhythmic drugs at this time. He has been maintaining sinus rhythm with just metoprolol. (2) Cardiomyopathy Assessment & Plan: This is a new finding in this patient. His ejection fraction was normal 1 year ago. His cardiac catheterization showed angiographically normal appearing coronary arteries. Exact etiology of cardiomyopathy is unclear. Tachycardia mediated cardiomyopathy is in the differential diagnosis. This may have also been caused by Covid infection but there is no way to prove this. He should continue on metoprolol and lisinopril. I had previously thought his ejection fraction was less than 35% and I was recommending a LifeVest. However, his ejection fraction is actually 35-40% and therefore, he should not be at increased risk of sudden cardiac and does not need a LifeVest. I will plan to titrate his medications for the cardiomyopathy following discharge. I should note, he did not appear to have any definitive evidence of heart failure during this admission. (3) Supraventricular tachycardia Assessment & Plan: He seems to be having a combination supraventricular tachycardia of unclear mechanism in addition to paroxysmal atrial fibrillation. He has been maintaining sinus rhythm on oral beta-vishal which should be continued. (4) Primary hypertension Status: Chronic Assessment & Plan: As above, he has been started on metoprolol and lisinopril. His blood pressures are intermittently elevated. If this persists, I would recommend increasing the dose of lisinopril. (5) Acute kidney injury Status: Acute Assessment & Plan: His presenting GFR was consistent with stage III chronic kidney disease. I do not have any old results for comparison. His renal function has returned to normal. (6) Type 2 diabetes mellitus with complication Status: Chronic Assessment & Plan: This is being managed by the hospitalist. His hemoglobin A1c was over 13 which is consistent with uncontrolled diabetes. He has underlying chronic kidney disease as noted above. Hopefully he can be transitioned off the insulin infusion in the near future. (7) Mass of upper lobe of right lung Assessment & Plan: Exact etiology unclear. This could be consistent with pne umonia. This will need to be followed up by his regular provider following discharge. He is currently receiving antibiotics. (8) Hyponatremia Status: Acute Assessment & Plan: Exact etiology unclear. This may be multifactorial some of which could be due to pseudohyponatremia from his elevated glucose level. The hospitalist and eICU are managing this. This has improved. (9) Obesity Status: Chronic Assessment & Plan: He needs to work on weight loss. (10) Personal history of COVID-19 Status: Resolved Assessment & Plan: Unclear whether or not this could have anything to do with his current clinical status. Problem Qualifiers (1) Obesity: Body mass index: BMI 35.0-35.9 BALTA CHRISTIE JR, MD Apr 29, 2021 08:44
[2021-04-29] MEDS ORDERED: NON-FORMULARY MEDICATION 1 EA EA (Vitamin B Complex (B Complex) 1 EACH) PO SCH (09:00)
[2021-04-29] MEDS ORDERED: NON-FORMULARY MEDICATION 1 EA EA (Liraglutide (Victoza 3-Pak) 1.8 MG) SQ SCH (09:00)
[2021-04-29] MEDS ORDERED: OMEGA 3 (FISH OIL) 1000 MG CAP PO SCH (09:00)
--- NOTE | 2021-04-29 09:21 | Physical Therapy Daily Note ---
PT Daily Note-Current Subjective Patient presents sitting in his chair and agrees to ambulate with therapy. Mental Status Patient Orientation: Person, Place, Time, Situation Attachments: Collins Catheter, IV Transfers SCALE: Activities may be completed with or without assistive devices. 8-Azspxeelcr-azrbwek completes the activity by him/herself with no assistance from a helper. 5-Set-up or Clean-up Assistance-helper sets up or cleans up; patient completes activity. [place] assists only prior to or following the activity. 4-Supervision or Touching Assistance-helper provides verbal cues and/or touching/steadying and/or contact guard assistance as patient completes activity. Assistance may be provided throughout the activity or intermittently. 3-Partial/Moderate Assistance-helper does LESS THAN HALF the effort. [place] lifts, holds or supports trunk or limbs, but provides less than half the effort. 2-Substantial/Maximal Assistance-helper does MORE THAN HALF the effort. [place] lifts or holds trunk or limbs and provides more than half the effort. 1-Wghpkicmr-eykfvs does ALL the effort. Patient does none of the effort to complete the activity. Or, the assistance of 2 or more helpers is required for the patient to complete the activity. If activity was not attempted, code reason: 7-Patient Refused. 9-Not Applicable-not attempted and the patient did not perform the activity before the current illness, exacerbation or injury. 10-Not Attempted due to Environmental Limitations-(lack of equipment, weather restraints, etc.). 88-Not Attempted due to Medical Conditions or Safety Concerns. Gait Training Distance: >500' Walk 10 feet (QC): 6 Walk 50 ft with 2 Turns(QC): 6 Walk 150 ft (QC): 6 Gait Assistive Device: None Patient ambulated for over 500' independently. Assessment Patient is independent for ambulation and is being d/c from therapy services due to his goals being met. Patient was instructed that he can get up and walk with his spouse and was educated about how to hang his catheter bag and push his IV pole. PT Fdc Goals Security Operations Engineer Goals PT Fdc Goals Time Frame: May 09, 2021 Roll Left & Right (QC): 6 Sit to Lying (QC): 6 Lying-Sitting on Side/Bed(QC): 6 Sit to Stand (QC): 6 Chair/Ycx-vk-Quybl Xfer(QC): 6 Toilet Transfer (QC): 6 Does the Patient Walk: Yes Walk 10 feet (QC): 4 Walk 50ft with 2 Turns (QC): 4 Walk 150 ft (QC): 4 1 Step (curb) (QC): 4 4 Steps (QC): 4 12 Steps (QC): 4 PT Plan Treatment/Plan Treatment Plan: Discontinue PT, goals met Treatment Plan: Bed Mobility, Education, Functional Activity [place], Functional Strength, Group Therapy, Gait, Safety, Therapeutic Exercise, Transfers Treatment Duration: Jun 03, 2021 Frequency: 6 times per week Estimated Hrs Per Day: .25 hour per day Patient and/or Family Agrees t: Yes Time/GCodes Time In: 825 Time Out: 843 Total Billed Treatment Time: 18 Total Billed Treatment 1 Visit FA 18 min MARYELLEN BOLTON PT Apr 29, 2021 09:21
[2021-04-29] MEDS: RT-ALBUTEROL SULF 2.5 MG/3 ML PRE-MIX VIAL INH SCH (10:29)
[2021-04-29] MEDS ORDERED: KCL 20 MEQ TAB (K-DUR) PO NR (11:45)
[2021-04-29] MEDS ORDERED: RIVA20TA2 PO (11:58)
[2021-04-29] MEDS ORDERED: METO50TA7 PO (11:58)
[2021-04-29] MEDS ORDERED: LISI10TA25 PO (11:58)
--- NOTE | 2021-04-29 11:59 | Discharge Summary ---
Discharge Summary Hospital Course Problems/Dx: (1) Paroxysmal atrial fibrillation Status: Acute (2) Cardiomyopathy (3) Supraventricular tachycardia (4) Primary hypertension Status: Chronic (5) Acute kidney injury Status: Acute (6) Type 2 diabetes mellitus with complication Status: Chronic (7) Mass of upper lobe of right lung (8) Hyponatremia Status: Acute (9) Obesity Status: Chronic Qualifiers: (10) Personal history of COVID-19 Status: Resolved Hospital Course Date of Admission: Apr 24, 2021 at 15:28 Admission Diagnosis : Family Physician/Provider: Vickie Victoria Aprn Date of Discharge: 04/29/21 Discharge Diagnosis: [ ] Hospital Course: [ ] Labs and Pending Lab Test: Laboratory Tests 04/28/21 16:01: Glucometer 284H 04/28/21 20:13: Glucometer 291H 04/29/21 05:14: Glucometer 102 04/29/21 05:36: White Blood Count 12.1H, Red Blood Count 4.61, Hemoglobin 12.6L, Hematocrit 39L, Mean Corpuscular Volume 84, Mean Corpuscular Hemoglobin 27, Mean Corpuscular Hemoglobin Concent 33, Red Cell Distribution Width 15.2H, Platelet Count 253, Mean Platelet Volume 9.6, Immature Granulocyte % (Auto) 8, Neutrophils (%) (Auto) 76H, Lymphocytes (%) (Auto) 8L, Monocytes (%) (Auto) 7, Eosinophils (%) (Auto) 2, Basophils (%) (Auto) 0, Neutrophils # (Auto) 9.2H, Lymphocytes # (Auto) 1.0, Monocytes # (Auto) 0.8, Eosinophils # (Auto) 0.2, Basophils # (Auto) 0.0, Immature Granulocyte # (Auto) 0.9H, Sodium Level 136, Potassium Level 3.1L, Chloride Level 105, Carbon Dioxide Level 20L, Anion Gap 11, Blood Urea Nitrogen 13, Creatinine 0.84, Estimat Glomerular Filtration Rate 101, BUN/Creatinine Ratio 15, Glucose Level 97, Calcium Level 8.5, Corrected Calcium 9.5, Magnesium Level 1.6, Total Bilirubin 0.4, Aspartate Amino Transf (AST/SGOT) 24, Alanine Aminotransferase (ALT/SGPT) 45, Alkaline Phosphatase 126, Total Protein 5.9L, Albumin 2.8L 04/29/21 11:01: Glucometer 170H Microbiology 04/26/21 Fecal Leukocyte Stain - Final, Complete 04/26/21 C. difficile GDH Antigen & Toxins - Final, Complete 04/26/21 Stool Culture - Final, Complete 04/24/21 Blood Culture - Preliminary, Resulted No growth 04/24/21 Urine Culture - Final, Complete NO GROWTH 04/24/21 MRSA Screen - Final, Complete MRSA not isolated Home Meds Active Reported Cetirizine HCl 10 Mg Tablet 10 Mg PO HS Fish Oil 1,200 mg Softgel ([place]-3S/Dha/Epa/Fish Oil) 1 Each Capsule 2 Each PO BID B Complex (Vitamin B Complex) 1 Each Tablet 1 Each PO DAILY Aspirin EC (Aspirin) 81 Mg Tablet.dr 81 Mg PO 1800 Xigduo Xr 5 mg-1,000 mg Tablet (Dapagliflozin/Metformin HCl) 1 Each Tab.bp.24h 2 Each PO DAILY LAST FILLED 02-21-2021 #60/30 DAY SUPPLY Victoza 3-Kieran (Liraglutide) 0.6 Mg/0.1 Ml Pen.injctr 1.8 Mg SQ DAILY LAST FILLED 12-16-2020 #9 PENS/90 DAY SUPPLY Levemir Flextouch (Insulin Detemir) 100 Unit/1 Ml Insuln.pen 50 Unit SQ BID LAST FILLED 11-05-2020 #15 PEMS/45 DAY SUPPLY Citalopram HBr (Citalopram Hydrobromide) 20 Mg Tablet 20 Mg PO HS Novolog Flexpen (Insulin Aspart) 300 Units/3 Ml Solution 10-15 Units SQ AC LAST FILLED 10-15-2020 #5 PENS/33 DAY SUPPLY Pravastatin Sodium 40 Mg Tablet 40 Mg PO HS Lisinopril-Hctz 20-25 mg Tab (Lisinopril/Hydrochlorothiazide) 1 Each Tablet 1 Each PO 1800 LAST FILLED 12-28-2020 #90/90 DAY SUPPLY Discharge Physical Examination Vital Signs Vital Signs Date Time Temp Pulse Resp B/P (MAP) Pulse Ox O2 Delivery O2 Flow Rate FiO2 04/29/21 11:02 36.7 66 18 146/67 97 Room Air 04/28/21 21:19 2.00 04/27/21 00:04 28 Allergies: Coded Allergies: No Known Drug Allergies (Unverified , 06/29/20) Discharge Summary Date of Admission Apr 24, 2021 at 15:28 Date of Discharge Discharge Date: Apr 29, 2021 Admission Diagnosis SVT-status post cardioversion Possible paroxysmal atrial fibrillation Diabetes on insulin [id number] secondary to recent noncompliance for the last month-now with DKA Recent Covid infection Hypertension Hyperlipidemia Possible lung mass vs consolidated pneumonia-s/p Covid -CT chest on my examination appears to be bilateral consolidations c/w pneumonia- so will begin iv antibiotics after blood and sputum cultures. Renal Insuficiency with proteinuria- Discharge Diagnosis Assessment: Supraventricular Tachycardia s/p Chemical & Electrical Cardioversion Paroxysmal Atrial Fibrillation Cardiomyopathy (HFrEF) Pneumonia Diabetic Ketoacidosis - improving Type 2 Diabetes Mellitus Acute Kidney Injury - resolved Primary Hypertension Hyponatremia - improving Obesity Personal Hx of COVID-19 Diarrhea - improving Anemia Plan: Transfer to fourth floor Insulin Antibiotics PT and OT (1) Paroxysmal atrial fibrillation Status: Acute Assessment & Plan: In addition to supraventricular tachycardia, he also seems to be having some paroxysmal atrial fibrillation. I previously started him on intravenous amiodarone and he converted to sinus rhythm. I discontinued the amiodarone infusion after he received the first bag. He should continue metoprolol succinate. I recommend continuing rivaroxaban for stroke prophylaxis. I will hold off on giving him any other antiarrhythmic drugs at this time. He has been maintaining sinus rhythm with just metoprolol. (2) Cardiomyopathy Assessment & Plan: This is a new finding in this patient. His ejection fraction was normal 1 year ago. His cardiac catheterization showed angiographically normal appearing coronary arteries. Exact etiology of cardiomyopathy is unclear. Tachycardia mediated cardiomyopathy is in the differential diagnosis. This may have also been caused by Covid infection but there is no way to prove this. He should continue on metoprolol and lisinopril. I had previously thought his ejection fraction was less than 35% and I was recommending a LifeVest. However, his ejection fraction is actually 35-40% and therefore, he should not be at increased risk of sudden cardiac and does not need a LifeVest. I will plan to titrate his medications for the cardiomyopathy following discharge. I should note, he did not appear to have any definitive evidence of heart failure during this admission. (3) Supraventricular tachycardia Assessment & Plan: He seems to be having a combination supraventricular tachycardia of unclear mechanism in addition to paroxysmal atrial fibrillation. He has been maintaining sinus rhythm on oral beta-vishal which should be continued. (4) Primary hypertension Status: Chronic Assessment & Plan: As above, he has been started on metoprolol and lisinopril. His blood pressures are intermittently elevated. If this persists, I would recommend increasing the dose of lisinopril. (5) Acute kidney injury Status: Acute Assessment & Plan: His presenting GFR was consistent with stage III chronic kidney disease. I do not have any old results for comparison. His renal function has returned to normal. (6) Type 2 diabetes mellitus with complication Status: Chronic Assessment & Plan: This is being managed by the hospitalist. His hemoglobin A1c was over 13 which is consistent with uncontrolled diabetes. He has underlying chronic kidney disease as noted above. Hopefully he can be transitioned off the insulin infusion in the near future. (7) Mass of upper lobe of right lung Assessment & Plan: Exact etiology unclear. This could be consistent with pneumonia. This will need to be followed up by his regular provider following discharge. He is currently receiving antibiotics. (8) Hyponatremia Status: Acute Assessment & Plan: Exact etiology unclear. This may be multifactorial some of which could be due to pseudohyponatremia from his elevated glucose level. The hospitalist and eICU are managing this. This has improved. (9) Obesity Status: Chronic Assessment & Plan: He needs to work on weight loss. Qualifiers: (10) Personal history of COVID-19 Status: Resolved Assessment & Plan: Unclear whether or not this could have anything to do with his current clinical status. KAYLAN ALVAREZ DO Apr 29, 2021 11:59
[2021-04-29] MEDS ORDERED: INSU100I29 SQ (12:00)
[2021-04-29] MEDS ORDERED: INSU100I14 SQ (12:00)
[2021-04-29 13:17] VITALS: BP 146/67
[2021-04-29] MEDS ORDERED: AMOX-358 PO (14:20)
--- NOTE | 2021-04-29 14:21 | Discharge Summary ---
Discharge Summary Hospital Course Was the Problem List Reviewed?: Yes Problems/Dx: (1) Paroxysmal atrial fibrillation Status: Acute (2) Cardiomyopathy (3) Supraventricular tachycardia (4) Primary hypertension Status: Chronic (5) Acute kidney injury Status: Acute (6) Type 2 diabetes mellitus with complication Status: Chronic (7) Mass of upper lobe of right lung (8) Hyponatremia Status: Acute (9) Obesity Status: Chronic Qualifiers: (10) Personal history of COVID-19 Status: Resolved Hospital Course Date of Admission: Apr 24, 2021 at 15:28 Admission Diagnosis : Family Physician/Provider: Vickie Victoria Aprn Date of Discharge: 04/29/21 Discharge Diagnosis: SVT, atrial fibrillation, diabetes [id number], pneumonia, DKA Hospital Course: Pt had a lengthy hospital course, most of it in the ICU when he was transferred from [place] due to SVT, afib with RVR, and severe pneumonia with DKA. He was placed on insulin drip, antibiotics, and oxygen supplementation. Cardiology managed his arrhythmia. He currently is on room air. He is doing very well. Labs remain stable. I restarted all of his insulin. He will complete his antibiotics and have close follow-up with his PCP. Labs and Pending Lab Test: Laboratory Tests 04/28/21 16:01: Glucometer 284H 04/28/21 20:13: Glucometer 291H 04/29/21 05:14: Glucometer 102 04/29/21 05:36: White Blood Count 12.1H, Red Blood Count 4.61, Hemoglobin 12.6L, Hematocrit 39L, Mean Corpuscular Volume 84, Mean Corpuscular Hemoglobin 27, Mean Corpuscular Hemoglobin Concent 33, Red Cell Distribution Width 15.2H, Platelet Count 253, Mean Platelet Volume 9.6, Immature Granulocyte % (Auto) 8, Neutrophils (%) (Auto) 76H, Lymphocytes (%) (Auto) 8L, Monocytes (%) (Auto) 7, Eosinophils (%) (Auto) 2, Basophils (%) (Auto) 0, Neutrophils # (Auto) 9.2H, Lymphocytes # (Auto) 1.0, Monocytes # (Auto) 0.8, Eosinophils # (Auto) 0.2, Basophils # (Auto) 0.0, Immature Granulocyte # (Auto) 0.9H, Sodium Level 136, Potassium Level 3.1L, Chloride Level 105, Carbon Dioxide Level 20L, Anion Gap 11, Blood Urea Nitrogen 13, Creatinine 0.84, Estimat Glomerular Filtration Rate 101, BUN/Creatinine Ratio 15, Glucose Level 97, Calcium Level 8.5, Corrected Calcium 9.5, Magnesium Level 1.6, Total Bilirubin 0.4, Aspartate Amino Transf (AST/SGOT) 24, Alanine Aminotransferase (ALT/SGPT) 45, Alkaline Phosphatase 126, Total Protein 5.9L, Albumin 2.8L 04/29/21 11:01: Glucometer 170H Microbiology 04/26/21 Fecal Leukocyte Stain - Final, Complete 04/26/21 C. difficile GDH Antigen & Toxins - Final, Complete 04/26/21 Stool Culture - Final, Complete 04/24/21 Blood Culture - Preliminary, Resulted No growth 04/24/21 Urine Culture - Final, Complete NO GROWTH 04/24/21 MRSA Screen - Final, Complete MRSA not isolated Home Meds Active Levemir Flextouch (Insulin Detemir) 100 Unit/1 Ml Insuln.pen 50 Unit SQ BID LAST FILLED 11-05-2020 #15 PEMS/45 DAY SUPPLY Novolog Flexpen (Insulin Aspart) 300 Units/3 Ml Solution 10-15 Units SQ AC LAST FILLED 10-15-2020 #5 PENS/33 DAY SUPPLY Lisinopril 10 Mg Tablet 10 Mg PO DAILY Metoprolol Succinate 50 Mg Tab.er.24h 100 Mg PO DAILY Xarelto Tablet (Rivaroxaban) 20 Mg Tablet 20 Mg PO DAILY@1700 Reported Cetirizine HCl 10 Mg Tablet 10 Mg PO HS Fish Oil 1,200 mg Softgel ([place]-3S/Dha/Epa/Fish Oil) 1 Each Capsule 2 Each PO BID B Complex (Vitamin B Complex) 1 Each Tablet 1 Each PO DAILY Aspirin EC (Aspirin) 81 Mg Tablet.dr 81 Mg PO 1800 Xigduo Xr 5 mg-1,000 mg Tablet (Dapagliflozin/Metformin HCl) 1 Each Tab.bp.24h 2 Each PO DAILY LAST FILLED 02-21-2021 #60/30 DAY SUPPLY Victoza 3-Kieran (Liraglutide) 0.6 Mg/0.1 Ml Pen.injctr 1.8 Mg SQ DAILY LAST FILLED 12-16-2020 #9 PENS/90 DAY SUPPLY Citalopram HBr (Citalopram Hydrobromide) 20 Mg Tablet 20 Mg PO HS Pravastatin Sodium 40 Mg Tablet 40 Mg PO HS Assessment/Pt Instructions PCP in 1 week Discharge Planning: <30 minutes discharge planning Discharge Instructions Discharge Diet: ADA Diet Activity as Tolerated: Yes Discharge Physical Examination Vital Signs Vital Signs Date Time Temp Pulse Resp B/P (MAP) Pulse Ox O2 Delivery O2 Flow Rate FiO2 04/29/21 13:17 36.7 66 18 146/67 97 Room Air 0.00 04/27/21 00:04 28 General Appearance: No Apparent Distress, WD/WN Respiratory: Lungs Clear, Normal Breath Sounds Allergies: Coded Allergies: No Known Drug Allergies (Unverified , 06/29/20) Discharge Summary Date of Admission Apr 24, 2021 at 15:28 Date of Discharge Apr 29, 2021 at 13:22 Discharge Date: Apr 29, 2021 Admission Diagnosis SVT-status post cardioversion Possible paroxysmal atrial fibrillation Diabetes on insulin [id number] secondary to recent noncompliance for the last month-now with DKA Recent Covid infection Hypertension Hyperlipidemia Possible lung mass vs consolidated pneumonia-s/p Covid -CT chest on my exami nation appears to be bilateral consolidations c/w pneumonia- so will begin iv antibiotics after blood and sputum cultures. Renal Insuficiency with proteinuria- Discharge Diagnosis Assessment: Supraventricular Tachycardia s/p Chemical & Electrical Cardioversion Paroxysmal Atrial Fibrillation Cardiomyopathy (HFrEF) Pneumonia Diabetic Ketoacidosis - improving Type 2 Diabetes Mellitus Acute Kidney Injury - resolved Primary Hypertension Hyponatremia - improving Obesity Personal Hx of COVID-19 Diarrhea - improving Anemia Plan: Transfer to fourth floor Insulin Antibiotics PT and OT (1) Paroxysmal atrial fibrillation Status: Acute Assessment & Plan: In addition to supraventricular tachycardia, he also seems to be having some paroxysmal atrial fibrillation. I previously started him on intravenous amiodarone and he converted to sinus rhythm. I discontinued the amiodarone infusion after he received the first bag. He should continue metoprolol succinate. I recommend continuing rivaroxaban for stroke prophylaxis. I will hold off on giving him any other antiarrhythmic drugs at this time. He has been maintaining sinus rhythm with just metoprolol. (2) Cardiomyopathy Assessment & Plan: This is a new finding in this patient. His ejection fr action was normal 1 year ago. His cardiac catheterization showed angiographically normal appearing coronary arteries. Exact etiology of cardiomyopathy is unclear. Tachycardia mediated cardiomyopathy is in the differential diagnosis. This may have also been caused by Covid infection but there is no way to prove this. He should continue on metoprolol and lisinopril. I had previously thought his ejection fraction was less than 35% and I was recommending a LifeVest. However, his ejection fraction is actually 35-40% and therefore, he should not be at increased risk of sudden cardiac and does not need a LifeVest. I will plan to titrate his medications for the cardiomyopathy following discharge. I should note, he did not appear to have any definitive evidence of heart failure during this admission. (3) Supraventricular tachycardia Assessment & Plan: He seems to be having a combination supraventricular tachycardia of unclear mechanism in addition to paroxysmal atrial fibrillation. He has been maintaining sinus rhythm on oral beta-vishal which should be continued. (4) Primary hypertension Status: Chronic Assessment & Plan: As above, he has been started on metoprolol and lisinopril. His blood pressures are intermittently elevated. If this persists, I would recommend increasing the dose of lisinopril. (5) Acute kidney injury Status: Acute Assessment & Plan: His presenting GFR was consistent with stage III chronic kidney disease. I do not have any old results for comparison. His renal function has returned to normal. (6) Type 2 diabetes mellitus with complication Status: Chronic Assessment & Plan: This is being managed by the hospitalist. His hemoglobin A1c was over 13 which is consistent with uncontrolled diabetes. He has underlying chronic kidney disease as noted above. Hopefully he can be transitioned off the insulin infusion in the near future. (7) Mass of upper lobe of right lung Assessment & Plan: Exact etiology unclear. This could be consistent with pneumonia. This will need to be followed up by his regular provider following discharge. He is currently receiving antibiotics. (8) Hyponatremia Status: Acute Assessment & Plan: Exact etiology unclear. This may be multifactorial some of which could be due to pseudohyponatremia from his elevated glucose level. The hospitalist and eICU are managing this. This has improved. (9) Obesity Status: Chronic Assessment & Plan: He needs to work on weight loss. Qualifiers: (10) Personal history of COVID-19 Status: Resolved Assessment & Plan: Unclear whether or not this could have anything to do with his current clinical status. KAYLAN ALVAREZ DO Apr 29, 2021 14:21
== END 2021-04-29 13:22 | disposition home or self-care (01) | DRG 286 ==
LOC: CSD 11:30 → ICU 15:05 → OBSVTOIN 15:28 → 4TH 04-28 12:57
PROVIDERS: ADMIT Internal Medicine; ATTEND Internal Medicine
PROC: 4A023N7 Measurement of Cardiac Sampling and Pressure, Left Heart, Percutaneous Approach (ICD-10-PCS; principal; 2021-04-28)
PROC: B2111ZZ Fluoroscopy of Multiple Coronary Arteries using Low Osmolar Contrast (ICD-10-PCS; 2021-04-28)
DX: I47.1 Supraventricular tachycardia (principal); E11.10 Type 2 diabetes mellitus with ketoacidosis without coma; J18.9 Pneumonia, unspecified organism; I50.21 Acute systolic (congestive) heart failure; I42.9 Cardiomyopathy, unspecified; N17.9 Acute kidney failure, unspecified; E87.1 Hypo-osmolality and hyponatremia; E87.2 Acidosis; R53.81 Other malaise; I11.0 Hypertensive heart disease with heart failure; I48.0 Paroxysmal atrial fibrillation; Z86.16 Personal history of COVID-19; E78.5 Hyperlipidemia, unspecified; N28.9 Disorder of kidney and ureter, unspecified; R80.9 Proteinuria, unspecified; R91.8 Other nonspecific abnormal finding of lung field; E66.9 Obesity, unspecified; R19.7 Diarrhea, unspecified; D64.9 Anemia, unspecified; Z68.37 Body mass index [BMI] 37.0-37.9, adult
CPT/HCPCS: 36415; 71045; 71250; 76705; 80048; 80053; 80061; 81000; 82010; 82805; 82947; 83036; 83735; 84100; 84443; 84484; 85007; 85025; 85027; 85610; 86141; 87015; 87040; 87045; 87046; 87081; 87088; 87324; 87449; 87899; 89055; 93005; 93306; 93458; 94640; 94760

== ENCOUNTER 2021-06-03 10:00 | Outpatient (RCR) | payer BC ==
[~2021-06-03 10:00] MED LIST changes: +AMOX-358 PO; +ASPI-1238 PO; +CETI10TA17 PO; +CITA20TA9 PO; +DAPA1TAB3 PO; +INSU100I14 SQ; +INSU100I29 SQ; +LIRA0.6P3 SQ; +LISI10TA25 PO; +LISI1TAB48 PO; +METO50TA7 PO; +OMEG-179 PO; +PRAV40TA2 PO; -REGADENOSON 0.4 MG/5 ML SYR (LEXISCAN) IV ONE; +RIVA20TA2 PO; +VITA-189 PO
== END 2021-06-09 | disposition home or self-care (01) ==
LOC: CARD 10:00
PROVIDERS: ATTEND Internal Medicine Cardiovascular Disease
DX: I48.0 Paroxysmal atrial fibrillation (principal)

== ENCOUNTER → 2021-07-04 | Outpatient (CLI) | payer BC | LOC: CARD 09:00 | PROVIDERS: ATTEND Internal Medicine Cardiovascular Disease | DX: K76.0 Fatty (change of) liver, not elsewhere classified (principal); I42.9 Cardiomyopathy, unspecified; I48.0 Paroxysmal atrial fibrillation; J18.9 Pneumonia, unspecified organism; R59.0 Localized enlarged lymph nodes | CPT/HCPCS: 93306 ==

== ENCOUNTER → 2021-12-12 | Outpatient (CLI) | payer BC | END | disposition home or self-care (01) | LOC: CARD 09:00 | PROVIDERS: ATTEND Internal Medicine Cardiovascular Disease | DX: I42.9 Cardiomyopathy, unspecified (principal); I35.8 Other nonrheumatic aortic valve disorders; I51.7 Cardiomegaly | CPT/HCPCS: 93306 ==

== ENCOUNTER → 2022-02-20 | Outpatient (CLI) | payer BC | LOC: CARD 09:00 | PROVIDERS: ATTEND Internal Medicine Cardiovascular Disease | DX: I35.8 Other nonrheumatic aortic valve disorders (principal); I51.7 Cardiomegaly; I42.9 Cardiomyopathy, unspecified | CPT/HCPCS: 93308 ==

== ENCOUNTER 2022-11-22 07:40 | Outpatient (CLI) | payer BC ==
[~2022-11-22 07:40] MED LIST changes: -INSU100I29 SQ; +INSU100I30 SQ
== END 2022-11-22 08:05 ==
LOC: SLEEP 07:40
PROVIDERS: ATTEND Internal Medicine Cardiovascular Disease
DX: G47.33 Obstructive sleep apnea (adult) (pediatric) (principal)
CPT/HCPCS: G0399